=== PATIENT | female | born 1970 | race Caucasian/White ===

== ENCOUNTER → 2023-04-15 11:21 | Outpatient (REF) | payer BC, SELFPAY ==
[2023-04-15 13:10] LABS: Urine Albumin Trace (Neg - Trace); Urine Bilirubin Negative (Negative); Urine Character Slightly Cloudy (Clear); Urine Color Yellow; Urine Glucose Negative (Negative); Urine Ketone Negative (Negative); Urine Leukocyte 2+ (Negative); Urine Nitrite Positive (Negative); Urine Occult Blood Trace (Negative); Urine Specific Gravity 1.015 (<1.030); Urine Urobilinogen Negative (Neg - 1+)
[2023-04-15 13:42] LABS: Urine Urothelial Cell 0-2 /LPF (FEW)
[2023-04-15 13:43] LABS: Urine White Cell 70-80 /HPF (0-5)
[2023-04-15 13:44] LABS: Urine Bacteria Many (Negative)
== END ==
LOC: REG 11:21
PROVIDERS: ATTENDING PHYSICIAN Nurse Practitioner Adult Health
DX: R10.9 Unspecified abdominal pain (principal)
CPT/HCPCS: 81003; 81015; 87077; 87086; 87186

== ENCOUNTER → 2023-05-05 10:16 | Outpatient (REF) | payer BC, SELFPAY ==
[2023-05-05 11:38] LABS: Osmolality Urine 392 mOsm/kg (300-900)
[2023-05-05 11:48] LABS: Blood Urea Nitrogen 12 mg/dl (7-17); Calcium 9.6 mg/dl (8.4-10.2); Carbon Dioxide 26 mmol/L (22-30); Chloride 99 mmol/L (98-107); Glucose 123 mg/dl (70-99); Potassium 3.9 mmol/L (3.5-5.1); Sodium 136 mmol/L (135-145); eGFR 49.79
[2023-05-05 12:01] LABS: Urine Protein 23 mg/dl (0-12)
== END ==
LOC: REG 10:16
PROVIDERS: ATTENDING PHYSICIAN Specialist
DX: R10.9 Unspecified abdominal pain (principal); N18.31 Chronic kidney disease, stage 3a; I10 Essential (primary) hypertension; E87.1 Hypo-osmolality and hyponatremia; R31.29 Other microscopic hematuria
CPT/HCPCS: 36415; 80048; 82570; 83935; 83970; 84156

== ENCOUNTER → 2023-05-06 11:17 | Outpatient (REF) | payer BC, SELFPAY ==
[2023-05-06 12:01] LABS: Urine Albumin Trace (Neg - Trace); Urine Bilirubin Negative (Negative); Urine Character Slightly Cloudy (Clear); Urine Color Yellow; Urine Glucose Negative (Negative); Urine Ketone Negative (Negative); Urine Leukocyte 2+ (Negative); Urine Nitrite Positive (Negative); Urine Occult Blood 1+ (Negative); Urine Urobilinogen Negative (Neg - 1+); Urine pH 6.5 (5.0-9.0)
[2023-05-06 12:17] LABS: Urine Bacteria Many (Negative); Urine White Cell 40-50 /HPF (0-5)
== END ==
LOC: REG 11:17
PROVIDERS: ATTENDING PHYSICIAN Internal Medicine
DX: Z87.440 Personal history of urinary (tract) infections (principal)
CPT/HCPCS: 81003; 81015; 87077; 87086; 87186

== ENCOUNTER → 2023-05-18 16:18 | Outpatient (REF) | payer BC, SELFPAY | LOC: RAD 16:18 | PROVIDERS: ATTENDING PHYSICIAN Specialist; FAMILY PHYSICIAN Internal Medicine | DX: R10.9 Unspecified abdominal pain (principal) | CPT/HCPCS: 76770 ==

== ENCOUNTER → 2023-07-07 07:56 | Outpatient (REF) | payer BC, SELFPAY ==
[2023-07-07 08:30] LABS: % Basophils 0.7 % (0-2); % Immature Granulocytes 0.6 % (0-0.5); % Lymphocytes 12.3 % (20.5-51.1); % Monocytes 7.8 % (1.7-9.3); % Neutrophils 77.6 % (42.2-75.2); Absolute Basophils 0.1 10^3/uL (0-0.2); Absolute Eosinophils 0.1 10^3/uL (0-0.7); Absolute Immature Granulocytes 0.1 10^3/uL (0-0.05); Absolute Lymphocytes 1.5 10^3/uL (1.2-3.4); Absolute Monocytes 0.9 10^3/uL (0.1-0.6); Absolute Neutrophils 9.4 10^3/uL (1.4-6.5); Hematocrit 41.3 % (37.0-47.0); Hemoglobin 14.8 g/dL (12.0-16.0); Mean Corp Hgb Conc. 35.8 g/dL (33.0-37.0); Mean Corpuscular Hgb 36.1 pg (27.0-31.0); Mean Corpuscular Volume 100.7 fL (81.0-99.0); Mean Platelet Volume 11.6 fL (7.4-10.4); Nucleated Red Blood Cells % 0 %; Platelet Count 200 10^3/uL (130-400); Red Cell Dist. Width 12.3 % (11.5-14.5); White Blood Cell Count 12.1 10^3/uL (4.8-10.8)
[2023-07-07 08:44] LABS: Glycohemoglobin (HgbA1c) 4.7 % (4.0-5.6)
[2023-07-07 09:05] LABS: ALT (SGPT) 53 U/L (0-35); AST (SGOT) 60 U/L (14-36); Albumin 4.4 g/dl (3.5-5.0); Alkaline Phosphatase 106 U/L (38-126); Blood Urea Nitrogen 10 mg/dl (7-17); Calcium 10.3 mg/dl (8.4-10.2); Carbon Dioxide 25 mmol/L (22-30); Chloride 96 mmol/L (98-107); GGTP 290 U/L (12-43); Glucose 98 mg/dl (70-99); Magnesium 1.2 mg/dl (1.6-2.3); Potassium 4.1 mmol/L (3.5-5.1); Sodium 130 mmol/L (135-145); Total Bilirubin 1.7 mg/dl (0.2-1.3); Total Cholesterol 299 mg/dl (50-199); Total Protein 7.9 g/dl (6.3-8.2); Triglyceride 124 mg/dl (10-149); Very Low Density Lipoprotein 24 mg/dl (0-30); eGFR 45.55
[2023-07-07 09:16] LABS: HDL Cholesterol 143 mg/dl; LDL Cholesterol, Calculated 132 mg/dl
== END ==
LOC: REG 07:56
PROVIDERS: ATTENDING PHYSICIAN Nurse Practitioner Adult Health; FAMILY PHYSICIAN Internal Medicine
DX: R73.01 Impaired fasting glucose (principal); Z09 Encounter for follow-up examination after completed treatment for conditions other than malignant neoplasm; R78.81 Bacteremia; B96.20 Unspecified Escherichia coli [E. coli] as the cause of diseases classified elsewhere; N39.0 Urinary tract infection, site not specified; N17.9 Acute kidney failure, unspecified; N18.32 Chronic kidney disease, stage 3b; R74.8 Abnormal levels of other serum enzymes; E83.42 Hypomagnesemia
CPT/HCPCS: 36415; 80053; 80061; 82977; 83036; 83735; 85025

== ENCOUNTER → 2023-07-30 10:09 | Outpatient (REF) | payer BC, SELFPAY ==
[2023-07-30 10:47] LABS: Urine Albumin Trace (Neg - Trace); Urine Bilirubin Negative (Negative); Urine Character Very Cloudy (Clear); Urine Color Yellow; Urine Glucose Negative (Negative); Urine Ketone Negative (Negative); Urine Leukocyte 2+ (Negative); Urine Nitrite Positive (Negative); Urine Occult Blood Trace (Negative); Urine Specific Gravity 1.015 (<1.030); Urine Urobilinogen Negative (Neg - 1+)
[2023-07-30 10:56] LABS: % Basophils 2.3 % (0-2); % Eosinophils 4.7 % (0-6); % Immature Granulocytes 0.2 % (0-0.5); % Lymphocytes 39.2 % (20.5-51.1); % Monocytes 11.8 % (1.7-9.3); % Neutrophils 41.8 % (42.2-75.2); Absolute Basophils 0.1 10^3/uL (0-0.2); Absolute Eosinophils 0.2 10^3/uL (0-0.7); Absolute Lymphocytes 1.9 10^3/uL (1.2-3.4); Absolute Monocytes 0.6 10^3/uL (0.1-0.6); Hemoglobin 14.6 g/dL (12.0-16.0); Mean Corpuscular Hgb 35.7 pg (27.0-31.0); Mean Corpuscular Volume 105.1 fL (81.0-99.0); Mean Platelet Volume 11.2 fL (7.4-10.4); Nucleated Red Blood Cells % 0 %; Platelet Count 236 10^3/uL (130-400); Red Blood Cell Count 4.09 10^6/uL (4.20-5.40); Red Cell Dist. Width 11.8 % (11.5-14.5); White Blood Cell Count 4.9 10^3/uL (4.8-10.8)
[2023-07-30 11:56] LABS: ALT (SGPT) 123 U/L (0-35); AST (SGOT) 186 U/L (14-36); Albumin 4.1 g/dl (3.5-5.0); Alkaline Phosphatase 144 U/L (38-126); Blood Urea Nitrogen 7 mg/dl (7-17); Calcium 9.8 mg/dl (8.4-10.2); Carbon Dioxide 26 mmol/L (22-30); Chloride 105 mmol/L (98-107); Glucose 100 mg/dl (70-99); Magnesium 1.5 mg/dl (1.6-2.3); Potassium 4.1 mmol/L (3.5-5.1); Sodium 143 mmol/L (135-145); Total Bilirubin 0.7 mg/dl (0.2-1.3); Total Protein 7.7 g/dl (6.3-8.2); eGFR > 60.00
[2023-07-30 11:58] LABS: Urine Amorphous Seen; Urine Mucus Few; Urine Squamous Cell 26-30 /LPF (Few)
[2023-07-30 12:00] LABS: Urine Bacteria Many (Negative); Urine Red Blood Cell 0-2 /HPF (0-2); Urine White Cell 90-100 /HPF (0-5)
== END ==
LOC: REG 10:09
PROVIDERS: ATTENDING PHYSICIAN Nurse Practitioner Adult Health
DX: D72.829 Elevated white blood cell count, unspecified (principal); E87.1 Hypo-osmolality and hyponatremia; E83.42 Hypomagnesemia
CPT/HCPCS: 36415; 80053; 81003; 81015; 83735; 85025; 87077; 87086; 87186

== ENCOUNTER → 2023-12-04 07:52 | Outpatient (REF) | payer BC, SELFPAY ==
[2023-12-04 09:17] LABS: ALT (SGPT) 65 U/L (0-35); AST (SGOT) 107 U/L (14-36); Albumin 4.6 g/dl (3.5-5.0); Alkaline Phosphatase 111 U/L (38-126); Alkaline Phosphatase, Total 111 U/L (38-126); Blood Urea Nitrogen 13 mg/dl (7-17); Calcium 9.5 mg/dl (8.4-10.2); Carbon Dioxide 25 mmol/L (22-30); Chloride 92 mmol/L (98-107); Glucose 75 mg/dl (70-99); Magnesium 1.5 mg/dl (1.6-2.3); Potassium 3.2 mmol/L (3.5-5.1); Sodium 137 mmol/L (135-145); Total Bilirubin 2.7 mg/dl (0.2-1.3); eGFR > 60.00
[2023-12-04 09:48] LABS: Hepatitis B Surface Antigen Negative (Negative)
[2023-12-04 10:02] LABS: Hepatitis B Core Ab, IgM Negative (Negative)
[2023-12-04 10:05] LABS: Hepatitis B Core Ab, Total Negative (Negative); Hepatitis C Antibody Negative (Negative)
[2023-12-04 14:17] LABS: Hepatitis A Antibody, Total Positive (Negative)
[2023-12-04 14:49] LABS: Alk Phos After Heat 105; Alkaline Phosphatase Percent 94.59
== END ==
LOC: REG 07:52
PROVIDERS: ATTENDING PHYSICIAN Nurse Practitioner Adult Health
DX: R74.01 Elevation of levels of liver transaminase levels (principal); R74.8 Abnormal levels of other serum enzymes; E83.42 Hypomagnesemia
CPT/HCPCS: 36415; 80053; 83735; 84078; 86704; 86705; 86708; 86803; 87340

== ENCOUNTER → 2023-12-05 13:42 | Outpatient (REF) | payer BC, SELFPAY | LOC: WDC 13:42 | PROVIDERS: ATTENDING PHYSICIAN Nurse Practitioner Adult Health | DX: Z12.31 Encounter for screening mammogram for malignant neoplasm of breast (principal) | CPT/HCPCS: 77063; 77067 ==

== ENCOUNTER 2024-02-03 18:30 | Inpatient (IN) | payer BC, SELFPAY ==
[2024-02-03] VITALS (11 sets, daily range): BP systolic 93–126; BP diastolic 59–92; BMI 29.6; BMI 25.4
--- NOTE | 2024-02-03 10:44 | ED.GENMED ---
ED Provider Triage
<Tae Forte PA-C - Last Filed: 02/03/24 10:53>
-
Patient seen by provider in Triage?: Seen in Triage
53-year-old female presents via EMS from home with complaints of bilateral lower back pain and fatigue as well as paresthesias to the arms and legs. She notes urinary symptoms and also notes history of sepsis secondary to kidney infection. Her
symptoms reminder of when she had sepsis.
Vital signs stable. Looks nontoxic at triage but will start with labs and urinalysis
Patient had medical screening performed at triage but warrants further evaluation
Update: Patient vomiting at triage. 4 milligrams ODT Zofran ordered
History of Present Illness
<Tae Forte PA-C - Last Filed: 02/03/24 10:53>
General
Chief Complaint: Numbness
Time Seen by Provider: 02/03/24 13:42
<Adolfo Crews DO - Last Filed: 02/03/24 20:45>
General
Source: patient
History of Present Illness
History of Present Illness:
53-year-old female brought to the emergency room for evaluation of paresthesias bilateral lower extremities associated with difficulty walking. Symptoms began about a week ago affecting the lower leg bilaterally. Symptoms have progressed up the
leg. Also has some paresthesias in her hands. In addition patient is complaining of some left flank pain. She has had a history of serious kidney infections in the past and was concerned she might be developing another. Patient endorses alcohol
use. She states she was drinking 2 drinks a day but stopped about a week ago. No incontinence.
Past History
<Tae Forte PA-C - Last Filed: 02/03/24 10:53>
Past History
ED Past Medical History: Negative CAD, IDDM or NIDDM
Social History
Tobacco: Non-smoker
Alcohol: Occasional
Drug: None
Personal:
Living: with family
Employment: Employed
Family History
Family History: Other (No urologic issues)
Phy Exam
<Adolfo Crews DO - Last Filed: 02/03/24 20:45>
Physical Exam
Physical Exam:
General: Awake, Alert, Oriented X3. No acute distress.
Vitals: unremarkable
Head: Atraumatic
Eyes: Pupils equal, EOMI
Throat: Airway intact, no exudates, mildly dry mucosa
Neck: Trachea midline
Lungs: Clear and equal b/l
Heart: Regular rate, no murmurs
Abd: Soft, suprapubic discomfort and fullness, No pulsatile mass
Back: Left CVA tenderness to percussion
Neuro: Nonfocal
Skin: Warm, dry, no rash
Extremities: pulses equal b/l, no edema
Course
<Tae Forte PA-C - Last Filed: 02/03/24 10:53>
Orders/Labs/Results
Orders:
Orders
02/03/24 10:52
Ondansetron Orally Disint [Zofran Odt (Orally Disintegrating)] 4 mg PO NOW STA
02/03/24 10:55
Ondansetron Orally Disint [Zofran Odt (Orally Disintegrating)] 4 mg .ROUTE .STK-MED ONE
02/03/24 10:57
Complete Blood Count/With Diff Urgent
Comprehensive Metabolic Panel Urgent
02/03/24 14:07
CT Abd/pel Without Iv Or Oral Urgent
Comment:
Reason For Exam: left flank pain
Lactated Ringers [Lr] 500 ml IV BOLUS
02/03/24 14:31
Thiamine Injection 200 mg IV NOW STA
02/03/24 14:34
Urinalysis Reflex To Culture Urgent
Date Specimen was Collected: 02/03/24
Time Specimen was Collected: 14:04
Urine Microscopic Reflex Cult Urgent
Urine Culture Urgent
LISA Source: U
Specimen Description:
Date Specimen was Collected: 02/03/24
Time Specimen was Collected: 14:04
02/03/24 Dinner
Regular
At Your Request: Full Participation
Does patient need a safe tray?: No
02/03/24 16:13
CefTRIAXone [Rocephin] 1,000 mg IV NOW STA
02/03/24 16:20
CSF Cell Count Urgent
Date Specimen was Collected: 02/03/24
Time Specimen was Collected: 16:15
CSF Tube Number: 4
Comment: Tube #4
Lactate Level [Lactic Acid] Urgent
Lyme PCR, DNA [S] Urgent
Spinal Fluid Glucose Urgent
Date Specimen was Collected: 02/03/24
Time Specimen was Collected: 16:16
Spinal Fluid Protein Urgent
Date Specimen was Collected: 02/03/24
Time Specimen was Collected: 16:16
CSF Culture with Gram Stain Urgent
LISA Source: Csf
Specimen Description:
Date Specimen was Collected: 02/03/24
Time Specimen was Collected: 16:15
02/03/24 16:51
Code Status As Directed
Resuscitation Status: Full Code
Docusate W/Senna [Senokot-S] 1 tablet PO BIDPRN PRN
Polyethylene Glycol Powder [Miralax] 17 grams PO DAILYPRN PRN
02/03/24 16:52
Activity As Directed
Activity Level: As Tolerated
Vital Signs As Directed
Frequency: Per unit guidelines
02/03/24 16:53
DX Deep Vein Thrombosis Video Routine
02/03/24 18:00
Enoxaparin Sodium [Lovenox] 40 mg SC QPM
02/03/24 18:13
Admit/Transfer Patient As Directed
Co-Sign Provider:
Level of Care: Inpatient admission
Assign to:: Medical/Surgical
Physician / Group: Dr. Keshawn Trujillo
Diagnosis: Ascending lower extremity weakness
Reason for Hospitalization: Ascending lower extremity weakness
Expected length of stay greater than two midnights?: Yes
ELOS- Estimated Length of Stay in days: 3
I certify the patient meets the requirements for IP care: Yes
02/03/24 18:18
PRN Pain Medication Management As Directed
May give lesser potent ordered pain med per pt: Yes
preference::
Protocol:: Medication orders for pain may be administered in a
manner that supports deferring to patient preference
when the pt is:
- Requesting an ordered lesser potent pain medication.
Least to most potent pain medications are defined
as: acetaminophen < NSAID < tramadol < opioids
(morphine, oxycodone, hydromorphone).
- Requesting a lesser dose of the same medication IF
ORDERED.
- Requesting a less intrusive route of administration
if both routes are prescribed by the provider (PO <
IV).
02/03/24 18:22
Abdominal Ltd US [US Abdomen Limited] Routine
Comment: Liver, gallbladder
Reason For Exam: Right upper quadrant tenderness, increased AST ALT
02/03/24 19:56
Famotidine [Pepcid] 20 mg PO DAILYPRN PRN
02/03/24 20:00
Acetaminophen [Tylenol] 650 mg PO Q4HWA
Gabapentin [Neurontin] 200 mg PO TID
02/04/24 06:00
Complete Blood Count/With Diff IN AM
Comprehensive Metabolic Panel IN AM
Folate IN AM
Lipid Profile [Cardiovascular Evaluation] IN AM
Magnesium IN AM
PTT IN AM
Prothrombin Time IN AM
Serum Osmolality IN AM
TSH IN AM
Thyroid profile [TSH Reflex To Free T4] IN AM
Urine Osmolality Random [Osmolality, Random Urine] IN AM
Urine Sodium IN AM
Vitamin B12 IN AM
02/04/24 08:00
Amlodipine [Norvasc] 10 mg PO DAILY
Ascorbic Acid [Vitamin C] 250 mg PO DAILY
Cyanocobalamin [Vitamin B-12] 1,000 mcg PO DAILY
Magnesium l-Lactate [Mag-Tab Sr] 84 mg PO DAILY
Propranolol [Inderal] 20 mg PO DAILY
Abnormal Lab Results
02/03/24 02/03/24 02/03/24
10:57 14:34 16:20
WBC 18.8 H 10^3/uL
(4.8-10.8)
RBC 3.72 L 10^6/uL
(4.20-5.40)
MCV 102.4 H fL
(81.0-99.0)
MCH 36.8 H pg
(27.0-31.0)
Plt Count 447 H 10^3/uL
(130-400)
MPV 10.8 H fL
(7.4-10.4)
Abs Immat Gran (auto) 0.1 H 10^3/uL
(0-0.05)
Absolute Neuts (auto) 15.8 H 10^3/uL
(1.4-6.5)
Absolute Monos (auto) 1.5 H 10^3/uL
(0.1-0.6)
Immature Gran % 0.6 H %
(0-0.5)
Neutrophils % 84.1 H %
(42.2-75.2)
Lymphocytes % 7.0 L %
(20.5-51.1)
Sodium 132 L mmol/L
(135-145)
Chloride 91 L mmol/L
(98-107)
Carbon Dioxide 21 L mmol/L
(22-30)
Creatinine 1.1 H mg/dL
(0.6-1.0)
Glucose 140 H mg/dl
(70-99)
Lactic Acid 2.1 H mmol/L
(0.7-2.0)
Calcium 10.4 H mg/dl
(8.4-10.2)
Total Bilirubin 1.6 H mg/dl
(0.2-1.3)
AST 95 H U/L
(14-36)
ALT 52 H U/L
(0-35)
Urine Ketones 2+ A
(Negative)
Urine Nitrite (Reflex) Positive A
(Negative)
Urine Bilirubin 1+ A
(Negative)
Leukocyte Esterase Rfl 2+ A
(Negative)
Urine WBC (Reflex) 50-60 A /HPF
(0-5)
Urine Bacteria (Reflex) Many A
(Negative)
CSF Glucose 80 H mg/dl
(40-70)
CSF Total Protein 72 H mg/dl
(12-60)
02/03/24 10:57
02/03/24 10:57
Vital Signs
Initial and Last Documented VS:
Initial Vital Signs
Temp Pulse Resp BP Pulse Ox
98.5 F 96 20 93/59 100
02/03/24 10:42 02/03/24 10:42 02/03/24 10:42 02/03/24 10:42 02/03/24 10:42
Last Documented Vital Signs
Temp Pulse Resp BP Pulse Ox
99.2 F 106 18 124/81 95
02/03/24 20:08 02/03/24 20:08 02/03/24 20:08 02/03/24 20:08 02/03/24 20:08
Brendonlt;Adolfo Crews, DO - Last Filed: 02/03/24 20:45>
Orders/Labs/Results
Orders:
Orders
02/03/24 10:52
Ondansetron Orally Disint [Zofran Odt (Orally Disintegrating)] 4 mg PO NOW STA
02/03/24 10:55
Ondansetron Orally Disint [Zofran Odt (Orally Disintegrating)] 4 mg .ROUTE .STK-MED ONE
02/03/24 10:57
Complete Blood Count/With Diff Urgent
Comprehensive Metabolic Panel Urgent
02/03/24 14:07
CT Abd/pel Without Iv Or Oral Urgent
Comment:
Reason For Exam: left flank pain
Lactated Ringers [Lr] 500 ml IV BOLUS
02/03/24 14:31
Thiamine Injection 200 mg IV NOW STA
02/03/24 14:34
Urinalysis Reflex To Culture Urgent
Date Specimen was Collected: 02/03/24
Time Specimen was Collected: 14:04
Urine Microscopic Reflex Cult Urgent
Urine Culture Urgent
LISA Source: U
Specimen Description:
Date Specimen was Collected: 02/03/24
Time Specimen was Collected: 14:04
02/03/24 Dinner
Regular
At Your Request: Full Participation
Does patient need a safe tray?: No
02/03/24 16:13
CefTRIAXone [Rocephin] 1,000 mg IV NOW STA
02/03/24 16:20
CSF Cell Count Urgent
Date Specimen was Collected: 02/03/24
Time Specimen was Collected: 16:15
CSF Tube Number: 4
Comment: Tube #4
Lactate Level [Lactic Acid] Urgent
Lyme PCR, DNA [S] Urgent
Spinal Fluid Glucose Urgent
Date Specimen was Collected: 02/03/24
Time Specimen was Collected: 16:16
Spinal Fluid Protein Urgent
Date Specimen was Collected: 02/03/24
Time Specimen was Collected: 16:16
CSF Culture with Gram Stain Urgent
LISA Source: Csf
Specimen Description:
Date Specimen was Collected: 02/03/24
Time Specimen was Collected: 16:15
02/03/24 16:51
Code Status As Directed
Resuscitation Status: Full Code
Docusate W/Senna [Senokot-S] 1 tablet PO BIDPRN PRN
Polyethylene Glycol Powder [Miralax] 17 grams PO DAILYPRN PRN
02/03/24 16:52
Activity As Directed
Activity Level: As Tolerated
Vital Signs As Directed
Frequency: Per unit guidelines
02/03/24 16:53
DX Deep Vein Thrombosis Video Routine
02/03/24 18:00
Enoxaparin Sodium [Lovenox] 40 mg SC QPM
02/03/24 18:13
Admit/Transfer Patient As Directed
Co-Sign Provider:
Level of Care: Inpatient admission
Assign to:: Medical/Surgical
Physician / Group: Dr. Keshawn Trujillo
Diagnosis: Ascending lower extremity weakness
Reason for Hospitalization: Ascending lower extremity weakness
Expected length of stay greater than two midnights?: Yes
ELOS- Estimated Length of Stay in days: 3
I certify the patient meets the requirements for IP care: Yes
02/03/24 18:18
PRN Pain Medication Management As Directed
May give lesser potent ordered pain med per pt: Yes
preference::
Protocol:: Medication orders for pain may be administered in a
manner that supports deferring to patient preference
when the pt is:
- Requesting an ordered lesser potent pain medication.
Least to most potent pain medications are defined
as: acetaminophen < NSAID < tramadol < opioids
(morphine, oxycodone, hydromorphone).
- Requesting a lesser dose of the same medication IF
ORDERED.
- Requesting a less intrusive route of administration
if both routes are prescribed by the provider (PO <
IV).
02/03/24 18:22
Abdominal Ltd US [US Abdomen Limited] Routine
Comment: Liver, gallbladder
Reason For Exam: Right upper quadrant tenderness, increased AST ALT
02/03/24 19:56
Famotidine [Pepcid] 20 mg PO DAILYPRN PRN
02/03/24 20:00
Acetaminophen [Tylenol] 650 mg PO Q4HWA
Gabapentin [Neurontin] 200 mg PO TID
02/04/24 06:00
Complete Blood Count/With Diff IN AM
Comprehensive Metabolic Panel IN AM
Folate IN AM
Lipid Profile [Cardiovascular Evaluation] IN AM
Magnesium IN AM
PTT IN AM
Prothrombin Time IN AM
Serum Osmolality IN AM
TSH IN AM
Thyroid profile [TSH Reflex To Free T4] IN AM
Urine Osmolality Random [Osmolality, Random Urine] IN AM
Urine Sodium IN AM
Vitamin B12 IN AM
02/04/24 08:00
Amlodipine [Norvasc] 10 mg PO DAILY
Ascorbic Acid [Vitamin C] 250 mg PO DAILY
Cyanocobalamin [Vitamin B-12] 1,000 mcg PO DAILY
Magnesium l-Lactate [Mag-Tab Sr] 84 mg PO DAILY
Propranolol [Inderal] 20 mg PO DAILY
Abnormal Lab Results
02/03/24 02/03/24 02/03/24
10:57 14:34 16:20
WBC 18.8 H 10^3/uL
(4.8-10.8)
RBC 3.72 L 10^6/uL
(4.20-5.40)
MCV 102.4 H fL
(81.0-99.0)
MCH 36.8 H pg
(27.0-31.0)
Plt Count 447 H 10^3/uL
(130-400)
MPV 10.8 H fL
(7.4-10.4)
Abs Immat Gran (auto) 0.1 H 10^3/uL
(0-0.05)
Absolute Neuts (auto) 15.8 H 10^3/uL
(1.4-6.5)
Absolute Monos (auto) 1.5 H 10^3/uL
(0.1-0.6)
Immature Gran % 0.6 H %
(0-0.5)
Neutrophils % 84.1 H %
(42.2-75.2)
Lymphocytes % 7.0 L %
(20.5-51.1)
Sodium 132 L mmol/L
(135-145)
Chloride 91 L mmol/L
(98-107)
Carbon Dioxide 21 L mmol/L
(22-30)
Creatinine 1.1 H mg/dL
(0.6-1.0)
Glucose 140 H mg/dl
(70-99)
Lactic Acid 2.1 H mmol/L
(0.7-2.0)
Calcium 10.4 H mg/dl
(8.4-10.2)
Total Bilirubin 1.6 H mg/dl
(0.2-1.3)
AST 95 H U/L
(14-36)
ALT 52 H U/L
(0-35)
Urine Ketones 2+ A
(Negative)
Urine Nitrite (Reflex) Positive A
(Negative)
Urine Bilirubin 1+ A
(Negative)
Leukocyte Esterase Rfl 2+ A
(Negative)
Urine WBC (Reflex) 50-60 A /HPF
(0-5)
Urine Bacteria (Reflex) Many A
(Negative)
CSF Glucose 80 H mg/dl
(40-70)
CSF Total Protein 72 H mg/dl
(12-60)
02/03/24 10:57
02/03/24 10:57
Vital Signs
Initial and Last Documented VS:
Initial Vital Signs
Temp Pulse Resp BP Pulse Ox
98.5 F 96 20 93/59 100
02/03/24 10:42 02/03/24 10:42 02/03/24 10:42 02/03/24 10:42 02/03/24 10:42
Last Documented Vital Signs
Temp Pulse Resp BP Pulse Ox
99.2 F 106 18 124/81 95
02/03/24 20:08 02/03/24 20:08 02/03/24 20:08 02/03/24 20:08 02/03/24 20:08
Procedures
<Adolfo Crews DO - Last Filed: 02/03/24 20:45>
Lumbar Puncture
Indication for procedure:: evaluate for GBS
Procedure completed by: Myself
Consent form signed: Yes
Anesthesia/sedation: 1% Lidocaine
Preparation: cleaned with Betadine
Position: decubitis
Needle Size: 22 gauge
Needle Type: Sprotte Lumbar
Number of attempts: 2
Dressing applied to puncture site: bandaid
Complications: none
<Adolfo Crews DO - Last Filed: 02/03/24 20:45>
MDM/Problems Addressed
Differential Diagnosis Includes:
Kidney stone, pyelonephritis, infected kidney stone, electrolyte abnormality, vitamin deficiency such as thiamine, Guillain-Abdalla� syndrome
MDM/Problems Addressed:
Patient presents with left flank pain, nausea, decreased appetite. Also complaining of paresthesias in lower extremity weakness as well as paresthesias in her arm. These seem to be ascending from legs to upper extremities. From a left flank pain
standpoint the patient does have a elevated white blood cell count at 18.8. Urinalysis is consistent with urinary tract infection with 50-60 WBCs per high-power field. There is also many bacteria and chemistry analysis of the urine is positive for
leukocyte esterase as well as nitrates. CT without contrast obtained and there is no obstructing stone. From a paresthesia standpoint the patient's electrolytes are relatively normal. She seems to have it out gall abuse history and therefore
thiamine was provided. She did have vaccines administered maybe up to 2 months ago. I was unable to provoke reflexes in the lower extremities. My concern is she could have Guillain-Abdalla� syndrome. Lumbar puncture obtained. She does have
elevated protein at 72. There are 134 red blood cells per high-power field with only 1 WBC. Infection seems quite unlikely. Patient will be mated to the hospital service for IV antibiotics and further workup
<Adolfo Crews DO - Last Filed: 02/03/24 20:45>
*Radiology
Radiology exam reviewed: radiology read reviewed
*Pulse Oximetry
Patient hypoxic: no
*Critical Care Note
Total Time (30-74mins, 75-104mins- exclusive of procedures): Not Applicable
ED Attending Note
<Tae Forte PA-C - Last Filed: 02/03/24 10:53>
-
Portions of this chart may have been created with voice recognition software.� Occasional wrong word or��sound alike� substitutions may have occurred due to the inherent limitations of voice recognition software.
Discharge Plan
Departure
Patient Disposition: Admit
Date of Disposition: 02/03/24
Time of Disposition: 16:19
Admit to: IMU
Presentation/result/management discussed w/ accepting MD/DO: Hospitalist
Condition: Fair
Discharge Problem:
Pyelonephritis, Paresthesia of bilateral legs, Bilateral leg weakness
Interventions
Interventions:
*Risk Screen - Suicide Last Done: 02/03/24 10:42
*General Assessment Last Done: 02/03/24 10:42
*Neglect/Abuse Screening Last Done: 02/03/24 10:42
ED- Fall Risk Assessment Last Done: 02/03/24 12:21
*ED COVID-19 Vaccine History Last Done: 02/03/24 12:21
*Nursing Disposition Last Done: 02/03/24 19:55
ED- Neurological Assessment Last Done: 02/03/24 12:21
Discharge Date and Time
Discharge Date/Time: 02/03/24 20:03
[2024-02-03] MEDS: ZOFRAN ODT (ORALLY DISINTEGRATING) 4 MG PO (10:56)
[2024-02-03 11:14] LABS: % Basophils 0.5 % (0-2); % Immature Granulocytes 0.6 % (0-0.5); % Monocytes 7.8 % (1.7-9.3); % Neutrophils 84.1 % (42.2-75.2); Absolute Basophils 0.1 10^3/uL (0-0.2); Absolute Immature Granulocytes 0.1 10^3/uL (0-0.05); Absolute Lymphocytes 1.3 10^3/uL (1.2-3.4); Absolute Monocytes 1.5 10^3/uL (0.1-0.6); Absolute Neutrophils 15.8 10^3/uL (1.4-6.5); Hematocrit 38.1 % (37.0-47.0); Hemoglobin 13.7 g/dL (12.0-16.0); Mean Corpuscular Hgb 36.8 pg (27.0-31.0); Mean Corpuscular Volume 102.4 fL (81.0-99.0); Mean Platelet Volume 10.8 fL (7.4-10.4); Nucleated Red Blood Cells % 0 %; Platelet Count 447 10^3/uL (130-400); Red Blood Cell Count 3.72 10^6/uL (4.20-5.40); Red Cell Dist. Width 12.6 % (11.5-14.5); White Blood Cell Count 18.8 10^3/uL (4.8-10.8)
[2024-02-03 11:36] LABS: ALT (SGPT) 52 U/L (0-35); AST (SGOT) 95 U/L (14-36); Albumin 4.4 g/dl (3.5-5.0); Alkaline Phosphatase 124 U/L (38-126); Blood Urea Nitrogen 12 mg/dl (7-17); Calcium 10.4 mg/dl (8.4-10.2); Carbon Dioxide 21 mmol/L (22-30); Chloride 91 mmol/L (98-107); Glucose 140 mg/dl (70-99); Potassium 4.4 mmol/L (3.5-5.1); Sodium 132 mmol/L (135-145); Total Bilirubin 1.6 mg/dl (0.2-1.3); Total Protein 7.6 g/dl (6.3-8.2); eGFR > 60.00
[2024-02-03] MEDS: LR 500 IV (14:37)
[2024-02-03] MEDS: THIAMINE INJECTION 200 MG IV (14:38)
[2024-02-03 14:45] LABS: Urine Albumin Trace (Neg - Trace); Urine Bilirubin 1+ (Negative); Urine Character Clear (Clear); Urine Color Yellow; Urine Glucose Negative (Negative); Urine Ketone 2+ (Negative); Urine Leukocyte 2+ (Negative); Urine Nitrite Positive (Negative); Urine Occult Blood Negative (Negative); Urine Specific Gravity 1.025 (<1.030); Urine Urobilinogen 1+ (Neg - 1+)
[2024-02-03 15:09] LABS: Urine Amorphous Seen; Urine Squamous Cell >30 /LPF (Few)
[2024-02-03 15:11] LABS: Urine Bacteria Many (Negative); Urine Red Blood Cell 0-2 /HPF (0-2); Urine White Cell 50-60 /HPF (0-5)
[2024-02-03] MEDS: ROCEPHIN 1000 MG IV (16:34)
[2024-02-03 17:15] LABS: CSF Clarity Clear; CSF Color Colorless; CSF Tube # 4; Red Cell Count/CSF 134 mm^3; White Cell Count/CSF 1 mm^3 (0-5)
[2024-02-03 17:26] LABS: Spinal Fluid Glucose 80 mg/dl (40-70); Spinal Fluid Protein 72 mg/dl (12-60)
[2024-02-03 17:37] LABS: Lactic Acid 2.1 mmol/L (0.7-2.0)
--- NOTE | 2024-02-03 18:30 | HPS.HSE ---
Addendum entered and electronically signed by Keshawn Trujillo MD 02/04/24 14:10:
ascedning parasthetsias after vaccine admin at the begining of November
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
-s/p LP in the ED
-sensation and proprioceptin intact, muscle b/l equal 4/5
-check b12/folate
-may need emg
-unlikely cva therefore, will hold off on BMrain/C-spineMRI
-neuro consult
UA dirty, >30 epis
-unl;ikely cystitis on pyelo josué as no evidence of perinephric stranding on ct
macrocytosis
-likely related to alochol use
-chekc b12/folate
transaminitis
-likley related to fatty liver
-check ruqus
Original Note:
Family Physician
-
Family Physician: Trever Rosas
Chief Complaint
-
Ascending lower bilateral extremity weakness
History of Present Illness
53-year-old female, PCP Dr. Alas, full code presents via the ambulance with lower bilateral flank pain for the past couple of days, moderate in intensity rated as a 7 on the left and a 5 on the right, nonradiating. She has had a previous clinical
presentation and was diagnosed with a UTI given antibiotics and discharged. She has had approximately 5 episodes of UTI this year.
She is also complaining of bilateral numbness, weakness, paresthesia of the lower extremities which is ascending, and now she can feel this sensation both of her arms.
Medical History
Past Medical History
Past Medical History: Reports GERD, HTN, Renal Failure, Psychiatric (Depression) and Other (UTI)
Past Surgical History: Reports None
Social History
Tobacco: Non-smoker
Alcohol: Former (Drink 3 drinks a day for the past 10 years, recently quit 1 month ago)
Drug: None
Personal: Single
Living: Alone
Family History
Family History: Not pertinent
Allergies / Home Medications
Allergies reflects when Allergies were last updated in [facility].
Home Medications with original date entered in [facility]
Allergy/Medication List:
Allergies
Allergy/AdvReac Type Severity Reaction Status Date / Time
adhesive Allergy Rash Verified 02/03/24 10:47
Home Medications
famotidine 20 mg tablet (Zantac-360 (famotidine)) 20 mg PO DAILYPRN PRN heartburn 12/15/22
propranolol 20 mg tablet 20 mg PO DAILY 12/15/22
acetaminophen 325 mg tablet (Tylenol) 650 mg PO Q6HPRN PRN mild pain 02/03/24
amlodipine 10 mg tablet 10 mg PO DAILY 02/03/24
ascorbic acid (vitamin C) 250 mg tablet (Vitamin C) 250 mg PO DAILY 02/03/24
cyanocobalamin (vitamin B-12) 1,000 mcg tablet 1,000 mcg PO DAILY 02/03/24
magnesium oxide 400 mg PO DAILY 02/03/24
potassium 99 mg tablet 99 mg PO DAILY 02/03/24
Review of Systems
-
History Source: Patient
Constitutional: Denies Weight Gain or Night Sweats
EENT: Denies Sore Throat
Respiratory: Denies Cough or Trouble Breathing
Cardiac: Denies Chest Pain, Diaphoresis, Palpitations or Syncope
Abdomen/GI: Reports Abdominal Pain; Denies Vomiting, Diarrhea, Constipated or Bloody Stools
: Reports Flank Pain and Dark Urine; Denies Dysuria, Frequency, Incontinence or Difficulty Voiding
Musculoskeletal: Denies Joint Pain
Neurological: Reports Weakness (Bilateral lower extremities, and upper bilateral extremities) and Numbness (Bilateral lower extremities, and upper bilateral extremities)
Physical Exam
Vital Signs
Vital Signs
Temp Pulse Resp BP Pulse Ox
97.6 F 91 19 108/92 100
02/03/24 12:21 02/03/24 15:30 02/03/24 15:30 02/03/24 15:00 02/03/24 15:30
Physical Exam
Respiratory: Clear
Cardiac: S1/S2, Regular Rhythm and Tachycardia
GI: Soft, Non Distended, Normal Bowel Sounds and Tender (Right upper quadrant)
Genito-urinary: No costovertebral tender
Musculoskeletal: No Clubbing, No Cyanosis and No Edema
Skin: Warm and Dry
Neuro: Awake, Alert, Oriented, AO x 3 and DTR's Intact & Symmetrical (Decreased bilaterally ankle and knee)
Laboratory Results
-
02/03/24 10:57
02/03/24 10:57
Laboratory Results
Lactic Acid 2.1 mmol/L (0.7-2.0) H 02/03/24 16:20
Total Bilirubin 1.6 mg/dl (0.2-1.3) H 02/03/24 10:57
AST 95 U/L (14-36) H 02/03/24 10:57
ALT 52 U/L (0-35) H 02/03/24 10:57
Alkaline Phosphatase 124 U/L (38-126) 02/03/24 10:57
Data Reviewed
-
Medical Tests (Nuc Med, Echo, EKG etc): Image Personally Visualized and interpreted and Discussed with Physician
Lab Data: Labs Reviewed by me and Discussed with Physician
Impression/Plan
-
Bilateral ascending lower extremity weakness/ neuropathy involving the upper extremities as well
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
-Patient has had 3 alcoholic drinks a day for the past 10 years
-Ordered B12 and folate, MCV 102
-Ordered lipid profile
-Ordered gabapentin 200 Mg 3 times daily for neuropathy
-Ordered right upper quadrant ultrasound to check for hepatic steatosis
-Lumbar puncture analysis shows increased protein, increased glucose, normal RBC, clear and colorless
-Lumbar puncture culture pending
-Neuro consulted, ordered EMG, esr, crp, lymes , and MRI of the lumbar spine
Urinary tract infection?:
-Increasing WBC, no costovertebral angle tenderness, afebrile, no dysuria or incontinence
-Initial urine analysis is not clean due to having squamous epithelial cells more than 30
-Repeat urinalysis and culture
Macrocytic Anemia:
- hb is 13.7, mcv 102
- ordered folate, b12
- Likely due to alcohol abuse
Lactic acidosis:
- level is 2.1
- Blood cultures ordered
Leukocytosis:
-WBC count is 18
-Trend, most likely reactive
Mild hypercalcemia:
-Corrected level is 10.9
- in case calcium level increases Order free ionized calcium, parathyroid hormone
Elevated liver enzymes:
-AST 95 ALT 52 with right upper quadrant tenderness
-Right upper quadrant abdominal ultrasound ordered
Acute hyponatremia:
-Sodium of 132 at admit
-Order urine osmolality, serum osmolality, urine sodium
Hypertension:
- Continue Amlodipine
Depression:
- Continue Escitalopram
Hyperglycemia:
- serum glucose is 140
- ordered a HbA1c
[2024-02-03] MEDS: LOVENOX 40 MG SC (18:55)
--- NOTE | 2024-02-03 20:08 | PTCARENOTE ---
Pt arrived from ED via stretcher and was pulled over to bed. Pt is AAOx3, VSS, and complains of 6/10 B/L lower leg pain. RN administered Tylenol. Pt is oriented to unit, resting comfortably with call payan within reach.
[2024-02-03] MEDS: TYLENOL 650 MG PO (20:56)
[2024-02-03] MEDS: NEURONTIN 200 MG PO (20:56)
[2024-02-04] VITALS (9 sets, daily range): BP systolic 112–134; BP diastolic 74–94; BMI 25.4
[2024-02-04] MEDS: TYLENOL PO (02:50)
[2024-02-04] MEDS: TYLENOL 650 MG PO ×5 (03:00→21:13)
[2024-02-04 06:36] LABS: Urine Albumin Negative (Neg - Trace); Urine Bilirubin Negative (Negative); Urine Character Clear (Clear); Urine Color Yellow; Urine Glucose Negative (Negative); Urine Ketone Trace (Negative); Urine Leukocyte 2+ (Negative); Urine Nitrite Negative (Negative); Urine Occult Blood Negative (Negative); Urine Specific Gravity 1.005 (<1.030); Urine Urobilinogen Negative (Neg - 1+); Urine pH 6.5 (5.0-9.0)
[2024-02-04 07:05] LABS: Urine Bacteria Many (Negative); Urine Squamous Cell >30 /LPF (Few); Urine Urothelial Cell >30 /LPF (FEW); Urine White Cell >100 /HPF (0-5)
[2024-02-04 07:14] LABS: Osmolality Urine 132 mOsm/kg (300-900)
[2024-02-04 07:16] LABS: Ionized Calcium 1.23 mMOL/L (1.15-1.33)
[2024-02-04 07:26] LABS: INR 1.02; PT 13.9 Sec (11.4-14.6)
[2024-02-04 07:27] LABS: APTT 37.2 Sec (23.4-35.0)
[2024-02-04 07:45] LABS: Intact PTH 13.8 pg/ml (13.6-85.8)
[2024-02-04 07:49] LABS: ALT (SGPT) 55 U/L (0-35); AST (SGOT) 80 U/L (14-36); Albumin 4.4 g/dl (3.5-5.0); Alkaline Phosphatase 112 U/L (38-126); Blood Urea Nitrogen 19 mg/dl (7-17); Calcium 10.4 mg/dl (8.4-10.2); Carbon Dioxide 29 mmol/L (22-30); Chloride 91 mmol/L (98-107); Estimated Creatinine Clearance 42 ml/min; Glucose 75 mg/dl (70-99); HDL Cholesterol 68 mg/dl; LDL Cholesterol, Calculated 143 mg/dl; Magnesium 1.6 mg/dl (1.6-2.3); Potassium 3.3 mmol/L (3.5-5.1); Sodium 136 mmol/L (135-145); Total Cholesterol 265 mg/dl (50-199); Total Protein 7.5 g/dl (6.3-8.2); Triglyceride 271 mg/dl (10-149); Very Low Density Lipoprotein 54 mg/dl (0-30); eGFR 49.48
[2024-02-04 07:54] LABS: Erythrocyte Sed Rate 34 mm/hour (0-20)
[2024-02-04 08:23] LABS: TSH Reflex To Free T4 0.68 uIU/ml (0.47-4.68)
[2024-02-04 09:08] LABS: Urine Sodium < 5 mmol/L (30-90)
[2024-02-04 09:30] LABS: Folate 4.2 ng/ml (2.76-20); Vitamin B12 740 pg/ml (239-931)
[2024-02-04] MEDS: VITAMIN C 250 MG PO (09:52)
[2024-02-04] MEDS: MAG-TAB SR 84 MG PO (09:52)
[2024-02-04] MEDS: INDERAL 20 MG PO (09:52)
[2024-02-04] MEDS: VITAMIN B-12 1000 MCG PO (09:52)
[2024-02-04] MEDS: NORVASC 10 MG PO (09:53)
[2024-02-04] MEDS: VITAMIN B1 100 MG PO (09:57)
--- NOTE | 2024-02-04 09:57 | CON.NEURO4 ---
Addendum entered and electronically signed by ESTEFANIA Kang 02/04/24 11:33:
Home medications include acetaminophen, amlodipine, as vitamin C, B12, famotidine, magnesium, propranolol
reatinine 1.3 mg/dL H 02/04/24 07:02 Lab
ESR 34 mm/hour H 02/04/24 07:02 Lab
Calcium 10.4 mg/dl H 02/04/24 07:02 Lab
AST 80 U/L H 02/04/24 07:02 Lab
ALT 55 U/L H 02/04/24 07:02 Lab
C-Reactive Protein 80.60 mg/L H 02/04/24 07:02 Lab
Potassium 3.3 mmol/L L 02/04/24 07:02 Lab
Chloride 91 mmol/L L 02/04/24 07:02 Lab
BUN 19 mg/dl H 02/04/24 07:02 Lab
Total Cholesterol 265 mg/dl H 02/04/24 07:02 Lab
VLDL Cholesterol, Calc 54 mg/dl H 02/04/24 07:02 Lab
CSF Glucose 80 mg/dl H 02/03/24 16:20 Lab
CSF Total Protein 72 mg/dl H 02/03/24 16:20 Lab
CSF Appearance Clear 02/03/24 16:20 Lab
CSF Color Colorless 02/03/24 16:20 Lab
CSF WBC 1 mm^3 02/03/24 16:20 Lab
CSF RBC 134 mm^3 02/03/24 16:20 Lab
CSF Cell Count Tube # 4 02/03/24 16:20 Lab
Total Protein 7.5 g/dl 02/04/24 07:02 Lab
Triglycerides 271 mg/dl H 02/04/24 07:02 Lab
BP 130/90,
pulse
110
resp 18
Temp 98.4
O2 100%
Addendum entered and electronically signed by Rik Serrano MD 02/04/24 11:18:
Studies reviewed.
I have personally examined the patient. I reviewed and agree with the STRATEGIC ACCOUNT EXECUTIVE's Note.
My addenda:
Awake, alert, interactive. No acute distress.
Speech intact.
Follows 2-step requests w/o difficulty. No tremor.
Extra-ocular movements grossly intact.
Facial movements full and symmetric. Hearing intact to normal conversational volume.
Normal UE movements bilaterally.
Neck: full ROM.
Chest: no dyspnea
Heart: no JVD
Ext: (-) Clubbing, (-) Cyanosis, (-) Edema
IMPRESSIONS/RECOMMENDATIONS:
Abrupt onset of bilateral lower extremity weakness which has progressively worsened with sensory change. Patient also reports hand sensation change
Differential diagnosis includes Guillain-Abdalla� syndrome, less likely transverse myelitis based on the patient's areflexia. Metabolic disturbances such as vitamin B12 deficiency can produce similar symptoms although not as acute. The lumbar
puncture findings are not very key account representative of GBS.
Check EMG
Check blood work for potential metabolic causes
Check MRI of brain and cervical spine as thoracic and lumbar spine imaging is unremarkable and the patient is experiencing hand sensation changes
Would initiate immediately immunoglobulin for a 5-day therapy set at a regimen of 0.4 g/kg per day
Provide thiamine to avoid alcohol withdrawal
Would replace gabapentin with pregabalin due to potentially better control over sensation discomfort by using a medication without 0 order kinetics
Rehabilitation evaluations
DVT prophylaxis
D/W patient
All questions answered.
Will continue to follow patient.
Original Note:
Documented by User: ESTEFANIA Kang 02/04/24 10:32
Consultation - Neurology 4
-
CONSULTING PHYSICIAN: Dr. Rik Serrano
REFERRING PHYSICIAN: Dr. Robel Clark
DICTATED BY: ESTEFANIA Kang
DATE/TIME OF REQUEST: 02/03/2024
DATE/TIME OF CONSULTATION: 02/04/2024
Reason for Consultation: gait dysfunction
History of Present Illness:
This is a 53 year old female With a past medical history of Graves' disease, anxiety, depression, insomnia, hypertension, hayfever, thyroid disease, headache, and alcohol use who has presented to the hospital with Bilateral lower extremity weakness
on 02/03/2024. Patient reports symptoms started about 4 weeks ago. She started to notice numbness and weakness starting in her feet and her toes which gradually got worse. She reports over the past 3 to 4 days weakness significantly increased and
yesterday was unable to get up off the couch. Weakness now goes as high as her upper thighs. She is having associated discomfort. She reports that occasionally she has shooting pain in her feet that radiates upward towards her thighs. Hear legs
feel heavy. She has no truncal weakness.She also has noted some numbness and tingling in her fingers. She does not notice any weakness of her upper extremities but has difficulty feeling things. She denies any GI illness or respiratory illness.
She does admit to frequent UTIs over the past 6 months. She has no significant back/neck pain. She does report some flank pain that has been associated with her urinary track infections. She denies any shortness of breath. She tries and trouble
swallowing. She denies any visual changes. She denies any falls. She did have COVID and flu vaccinations the beginning of November. She admits to some intermittent numbness or pain bilateral feet over the summer which resolved with going in the
pool.
Past Medical History:
Graves' disease, anxiety, depression, insomnia, hypertension, hayfever, thyroid disease, headache and alcohol use
Surgical History: Right breast biopsy, LASEK eye surgery x2
Family History: father-heart disease
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 She quit drinking ETH completely 1 month ago prior had 1-2 drinks a night. She does not smoke
Allergies: adhesive
Home Medications: see below
Review of Symptoms:
Patient denies any fever, headache, chest pain, shortness of breath, GI or symptoms.
Vital Signs: see below
Physical Exam:
The patient is afebrile, heart sounds S1 and S2 are regular and chest is clear to auscultation bilaterally.
Neurologic Examination:
The patient is awake, alert and oriented x 3. She is able to follow commands and answer questions appropriately. There is no aphasia or dysarthria. On cranial nerve assessment, pupils are 3 mm bilateral, round and reactive to light and
accommodation. Visual dillard are full. Extraocular movements are intact. Facial sensations are intact and bilaterally symmetrical, there is no facial asymmetry. Hearing is intact bilaterally to normal conversation volume. Tongue palate and uvula
are midline. Sternocleidomastoid strengths are full bilaterally. Motor strengths are 5/5 bilateral upper and 4+/5 bilateral lower extremities on medical research [place] scale. There is no drift or involuntary movement noted. Deep tendon reflexes
are absent bilateral upper and lower extremities and Babinski is absent bilaterally. Sensations of pain, light touch, temperature and vibration are reduced bilaterally distally. There was no extinction noted on double simultaneous stimulation.
Coordination is intact by finger to nose bilaterally.
Lab Results: see below
Neuro Imaging: MRI lumbar an Thoracic spine (02/04/2024)-Chronic mild degenerative changes of the thoracic spine and lumbar spine. No MRI evidence for cord signal alteration. No evidence for significant spinal canal stenosis or neuroforaminal
stenosis.
Impression:
VICKIE DECKER is a 53 year old F who has presented to the hospital with b/l le weakness unable to ambulate and numbness of fingers on hands bilaterally. Lower extremity weakness starting about 4 weeks ago. No recent URI or Gi illness has had
recent UTI's.
Differentials for the patient's presentation include GBS vs structural abnormality brain/cervical vs metabolic disturbance
Recommendations:
MRI cervical spine with and without contrast
MRI brain with and without contrast
Start daily thiamine 100 mg PO
EMG ordered
Start IVIG, will likely need 5 doses
obtain NIF and vital capacity twice a day
PT/OT evaluations
Will add additional labs for possible metabolic causes
DVT prophylaxis
Rest of medical management per primary care team
Discussed patient care with patient and neurologist, Dr. Serrano

Documented by User: Rik Serrano MD 02/04/24 10:55
Consultation - Neurology 4
-
CONSULTING PHYSICIAN: Dr. Rik Serrano
REFERRING PHYSICIAN: Dr. Robel Clark
DICTATED BY: ESTEFANIA Kang
DATE/TIME OF REQUEST: 02/03/2024
DATE/TIME OF CONSULTATION: 02/04/2024
Reason for Consultation: gait dysfunction
History of Present Illness:
This is a 53 year old female With a past medical history of Graves' disease, anxiety, depression, insomnia, hypertension, hayfever, thyroid disease, headache, and alcohol use who has presented to the hospital with Bilateral lower extremity weakness
on 02/03/2024. Patient reports symptoms started about 4 weeks ago. She started to notice numbness and weakness starting in her feet and her toes which gradually got worse. She reports over the past 3 to 4 days weakness significantly increased and
yesterday was unable to get up off the couch. Weakness now goes as high as her upper thighs. She is having associated discomfort. She reports that occasionally she has shooting pain in her feet that radiates upward towards her thighs. Hear legs
feel heavy. She has no truncal weakness.She also has noted some numbness and tingling in her fingers. She does not notice any weakness of her upper extremities but has difficulty feeling things. She denies any GI illness or respiratory illness.
She does admit to frequent UTIs over the past 6 months. She has no significant back/neck pain. She does report some flank pain that has been associated with her urinary track infections. She denies any shortness of breath. She tries and trouble
swallowing. She denies any visual changes. She denies any falls. She did have COVID and flu vaccinations the beginning of November. She admits to some intermittent numbness or pain bilateral feet over the summer which resolved with going in the
pool.
Past Medical History:
Graves' disease, anxiety, depression, insomnia, hypertension, hayfever, thyroid disease, headache and alcohol use
Surgical History: Right breast biopsy, LASIK eye surgery x2
Family History: father-heart disease
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 She quit drinking ETH completely 1 month ago prior had 1-2 drinks a night. She does not smoke
Allergies: adhesive
Home Medications: see below
Review of Symptoms:
Patient denies any fever, headache, chest pain, shortness of breath, GI or symptoms.
Vital Signs: see below
Physical Exam:
The patient is afebrile, heart sounds S1 and S2 are regular and chest is clear to auscultation bilaterally.
Neurologic Examination:
The patient is awake, alert and oriented x 3. She is able to follow commands and answer questions appropriately. There is no aphasia or dysarthria. On cranial nerve assessment, pupils are 3 mm bilateral, round and reactive to light and
accommodation. Visual dillard are full. Extraocular movements are intact. Facial sensations are intact and bilaterally symmetrical, there is no facial asymmetry. Hearing is intact bilaterally to normal conversation volume. Tongue palate and uvula
are midline. Sternocleidomastoid strengths are full bilaterally. Motor strengths are 5/5 bilateral upper and 4+/5 bilateral lower extremities on medical research [place] scale. There is no drift or involuntary movement noted. Deep tendon reflexes
are absent bilateral upper and lower extremities and Babinski is absent bilaterally. Sensations of pain, light touch, temperature and vibration are reduced bilaterally distally. There was no extinction noted on double simultaneous stimulation.
Coordination is intact by finger to nose bilaterally.
Lab Results: see below
Neuro Imaging: MRI lumbar an Thoracic spine (02/04/2024)-Chronic mild degenerative changes of the thoracic spine and lumbar spine. No MRI evidence for cord signal alteration. No evidence for significant spinal canal stenosis or neuroforaminal
stenosis.
Impression:
VICKIE DECKER is a 53 year old F who has presented to the hospital with b/l le weakness unable to ambulate and numbness of fingers on hands bilaterally. Lower extremity weakness starting about 4 weeks ago. No recent URI or Gi illness has had
recent UTI's.
Differentials for the patient's presentation include GBS vs structural abnormality brain/cervical vs metabolic disturbance
Recommendations:
MRI cervical spine with and without contrast
MRI brain with and without contrast
Start daily thiamine 100 mg PO
EMG ordered
Start IVIG, will likely need 5 doses
obtain NIF and vital capacity twice a day
PT/OT evaluations
Will add additional labs for possible metabolic causes
DVT prophylaxis
Rest of medical management per primary care team
Discussed patient care with patient and neurologist, Dr. Serrano
[2024-02-04] MEDS: NEURONTIN PO (09:59)
--- NOTE | 2024-02-04 10:23 | CM ---
Pt seen bedside. Initial assessment completed.
Pt lives alone in a 2STH- 3 steps to enter
Pt is independent, denies DME use for ambulating or daily functioning
Denies VN/PT hx
Denies financial insecurities
Address, point of contacts and insurance verified
PCP: Dr. Trever Rosas
Pharmacy: [facility]
Neuro pending
OT pending
Per pt, family will transport home at d/c
Plan: CM will cont to follow hospital course to determine any d/c needs
[2024-02-04 10:29] LABS: Glycohemoglobin (HgbA1c) 5.1 % (4.0-5.6)
[2024-02-04 10:39] LABS: % Basophils 0.8 % (0-2); % Eosinophils 0.4 % (0-6); % Immature Granulocytes 0.8 % (0-0.5); % Lymphocytes 21.9 % (20.5-51.1); % Monocytes 10.4 % (1.7-9.3); % Neutrophils 65.7 % (42.2-75.2); Absolute Basophils 0.1 10^3/uL (0-0.2); Absolute Immature Granulocytes 0.1 10^3/uL (0-0.05); Absolute Neutrophils 6.1 10^3/uL (1.4-6.5); Hematocrit 40.6 % (37.0-47.0); Mean Corp Hgb Conc. 34.5 g/dL (33.0-37.0); Mean Corpuscular Hgb 36.7 pg (27.0-31.0); Mean Corpuscular Volume 106.6 fL (81.0-99.0); Nucleated Red Blood Cells % 0 %; Platelet Count 347 10^3/uL (130-400); Red Blood Cell Count 3.81 10^6/uL (4.20-5.40); Red Cell Dist. Width 12.7 % (11.5-14.5); White Blood Cell Count 9.3 10^3/uL (4.8-10.8)
[2024-02-04 11:28] LABS: Osmolality Serum 281 mOsm/kg (275-300)
--- NOTE | 2024-02-04 12:53 | W.PN.HOSP.TC ---
Documented by User: Robel Clark MD, Resident 02/04/24 13:47
Assessment / Plan
Assessment / Plan
Bilateral ascending lower extremity weakness/ neuropathy involving the upper extremities as well
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
-Patient has had 3 alcoholic drinks a day for the past 10 years
-Normal folate and B12 levels on labs MCV 102
-lipid panel shows increased triglycerides level of 271, or total cholesterol of 265, advise patient on diet and to continue abstinence of alcohol
-gabapentin changed to pregabalin due to better control over sensation
-hepatic steatosis present on abdominal u/s, patient advised to continue abstinence of alcohol
-Lumbar puncture analysis shows increased protein, increased glucose, normal RBC, clear and colorless
- ESR and CRp elevated
- TSH normal
- MRI normal
-CSF cultures negative
-Neuro following, started patient on immunoglobulin 5 day therapy
Urinary tract infection?:
-Increasing WBC, no costovertebral angle tenderness, afebrile, no dysuria or incontinence
-Initial urine analysis is not clean due to having squamous epithelial cells more than 30
-Urine culture pending
Hyperferritinemia:
- ferritin is 1290
- could be due to alcohol use, fatty liver disease, or an inflammatory disorder have GI evaluate
Dehydration:
- urine sodium low and urine, osmolality low also
Macrocytic Anemia:
- hb is 13.7, mcv 102
- Likely due to alcohol abuse, advised on cessation of further alcohol use
Lactic acidosis:
- level is 2.1
- Blood cultures pending
Leukocytosis:
-WBC count is 9.3 and trending down, resolved
Mild hypercalcemia:
-Corrected level is 10.4
- PTH normal
- in case calcium level increases Order free ionized calcium,
Elevated liver enzymes:
-AST, ALT trending down, continue to observe
Acute hyponatremia:
-Sodium of 136, resolved
Hypertension:
- Continue Amlodipine
Depression:
- Continue Escitalopram
Hyperglycemia:
- serum glucose is 140
- HbA1c is 5.1
DVT- Lovenox
Anticipated Discharge: 24 - 48 hours
Subjective/Interval History
-
Date of Service: February 04, 2024
No overnight events
No acute medical problems
Objective Data
-
Labs:
Laboratory Results
02/04/24
07:02
WBC 9.3
Hgb 14.0
Hct 40.6
Plt Count 347 D
PT 13.9
INR 1.02
APTT 37.2 H
Sodium 136
Potassium 3.3 L
Chloride 91 L
Carbon Dioxide 29
BUN 19 H
Creatinine 1.3 H
Glucose 75
Calcium 10.4 H
Total Bilirubin 1.0
AST 80 H
ALT 55 H
Alkaline Phosphatase 112
Vital Signs:
Vital Signs
Temp Pulse Resp BP Pulse Ox
98.8 F 105 18 134/86 96
02/04/24 11:55 02/04/24 11:55 02/04/24 11:55 02/04/24 11:55 02/04/24 11:55
I&O
02/03/24 02/04/24 02/05/24
06:59 06:59 06:59
Intake Total 960 / 960
Balance 960 / 960
Review of Systems
-
History Source: Patient
Constitutional: Denies Fever or Chills
EENT: Denies Blurry Vision or Eye Pain
Respiratory: Denies Cough or Wheezing
Cardiac: Denies Chest Pain, Diaphoresis, Palpitations, Syncope, PND or Orthopnea
Abdomen/GI: Denies Abdominal Pain, Nausea, Vomiting, Diarrhea or Constipated
Genitourinary: Denies Dysuria
Musculoskeletal: Reports Muscle Weakness (Lower extremities bilaterally ); Denies Joint Pain
Skin: Denies Itching or Rash
Neuro: Reports Weakness (Bilateral lower extremities) and Numbness (Bilateral lower extremities); Denies Dizzy
Physical Exam
-
Respiratory: Clear to Auscultation
Cardiac: Regular Rhythm and S1/S2
GI: Soft, Nontender, Nondistended and Normal Bowel Sounds
Genito-urinary: Negative Costovertebral Angle Tend
Musculoskeletal: No Cyanosis and No Edema
Skin: Warm and Dry
Neuro: Awake, Alert, Oriented and AO x 3; Negative No Sensory Deficits or DTR's Intact & Symmetrica (ankle reflexes decreased bilaterally lower extremities)
Data Reviewed
-
Medical Tests (Nuc Med, Echo etc): Image personally visualized and interpreted and Discussed with Physician
Labs: Labs Reviewed by me and Discussed with Physician

Documented by User: Keshawn Trujillo MD 02/04/24 14:15
Today's Communication/Plan
-
Assessment / Plan
Assessment / Plan
ascending paraesthesias after vaccine admin at the beginning of November
-?GBS, demyelinating vs alcohol neuropathy vs nutritional deficiency vs underlying psych
-s/p LP in the ED
-sensation and proprioception intact, muscle b/l equal 4/5
-check b12/folate
-neuro following
-rec emg, mri spine and brain mri
UA dirty, >30 ep's on UA and no cystitis symptoms
-unlikely cystitis on pyelo josué as no evidence of perinephric stranding on ct
macrocytosis
-likely related to alochol use
-check b12/folate
transaminitis
-likley related to fatty liver
-ruqus as expected
alcohol use disorder
-though has not had a drink in 4 weeks
-thiamine
-folate
Physical Exam
-
Genito-urinary: No Costovertebral Tender
Neuro: Awake, Alert, Oriented, AO x 3, No Motor Deficits, Nonfocal/Grossly Intact and Central Nerve's Intact
[2024-02-04] MEDS: KCL ELIXIR 40 MEQ PO (13:34)
[2024-02-04] MEDS: GAMMAGARD 200 IV (13:35)
--- NOTE | 2024-02-04 14:30 | W.PN.HOSP.TC ---
Today's Communication/Plan
-
- follow up with neurology
Assessment / Plan
Assessment / Plan
Ischemic infarct of the corpus callosum:
- MRI of brain shows a infarct at the corpus callosum
- Physiatry consulted
- Aspirin/ clopidogrel for 21 days, then just aspirin
- Low dose atorvastatin 20 mg
- PT/OT
- echo normal
- CTA normal
- Antiphospholipid antibody, protein C, protein S, immunological studies pending
- Follow up with neurology
Ascending parasthesias:
- D/c immunoglobulins
-Patient has had 3 alcoholic drinks a day for the past 10 years
-Normal folate and B12 levels on labs MCV 102
-lipid panel shows increased triglycerides level of 271, or total cholesterol of 265, advise patient on diet and to continue abstinence of alcohol
-gabapentin changed to pregabalin due to better control over sensation
-hepatic steatosis present on abdominal u/s, patient advised to continue abstinence of alcohol
-Lumbar puncture analysis shows increased protein, increased glucose, normal RBC, clear and colorless
- ESR and CRp elevated
- TSH normal
- MRI normal
-CSF cultures negative
Urinary tract infection?:
- Repeat urine culture
Hyperferritinemia:
- ferritin is 1290
- could be due to alcohol use, fatty liver disease, or an inflammatory disorder have GI evaluate
Dehydration:
- urine sodium low and urine, osmolality low also
Macrocytic Anemia:
- hb is 13.7, mcv 109
- Likely due to alcohol abuse, advised on cessation of further alcohol use
Lactic acidosis:
- level is 2.1
- Blood cultures pending
Leukocytosis:
-WBC count is 9.3 and trending down, resolved
Mild hypercalcemia:
-Corrected level is 10.4
- PTH normal
- in case calcium level increases Order free ionized calcium,
Elevated liver enzymes:
-AST, ALT trending down, continue to observe
Acute hyponatremia:
-Sodium of 136, resolved
Hypertension:
- Continue Amlodipine
Depression:
- Continue Escitalopram
Hyperglycemia:
- serum glucose is 140
- HbA1c is 5.1
DVT- Lovenox
Anticipated Discharge: 24 - 48 hours
Subjective/Interval History
-
Date of Service: February 04, 2024
No acute overnight events.
Objective Data
-
Labs:
Laboratory Results
02/04/24
07:02
WBC 9.3
Hgb 14.0
Hct 40.6
Plt Count 347 D
PT 13.9
INR 1.02
APTT 37.2 H
Sodium 136
Potassium 3.3 L
Chloride 91 L
Carbon Dioxide 29
BUN 19 H
Creatinine 1.3 H
Glucose 75
Calcium 10.4 H
Total Bilirubin 1.0
AST 80 H
ALT 55 H
Alkaline Phosphatase 112
Vital Signs:
Vital Signs
Temp Pulse Resp BP Pulse Ox
98.8 F 83 18 116/80 96
02/04/24 11:55 02/04/24 14:23 02/04/24 11:55 02/04/24 14:23 02/04/24 11:55
I&O
02/03/24 02/04/24 02/05/24
06:59 06:59 06:59
Intake Total 960 / 960
Balance 960 / 960
Review of Systems
-
History Source: Patient
Constitutional: Denies Fever or Chills
EENT: Denies Blurry Vision or Eye Pain
Respiratory: Denies Cough or Wheezing
Cardiac: Denies Chest Pain, Diaphoresis, Palpitations, Syncope, PND or Orthopnea
Abdomen/GI: Denies Abdominal Pain, Nausea, Vomiting, Diarrhea or Constipated
Genitourinary: Denies Dysuria
Musculoskeletal: Reports Muscle Weakness (Lower extremities bilaterally ); Denies Joint Pain
Skin: Denies Itching or Rash
Neuro: Reports Weakness (Bilateral lower extremities) and Numbness (Bilateral lower extremities); Denies Dizzy
Physical Exam
-
Respiratory: Clear to Auscultation
Cardiac: Regular Rhythm and S1/S2
GI: Soft, Nontender, Nondistended and Normal Bowel Sounds
Genito-urinary: No Costovertebral Tender; Negative Costovertebral Angle Tend
Musculoskeletal: No Cyanosis and No Edema
Skin: Warm and Dry
Neuro: Awake, Alert, Oriented, AO x 3 and No Motor Deficits; Negative No Sensory Deficits or DTR's Intact & Symmetrica
Data Reviewed
-
Medical Tests (Nuc Med, Echo etc): Image personally visualized and interpreted and Discussed with Physician
Labs: Labs Reviewed by me and Discussed with Physician
--- NOTE | 2024-02-04 15:55 | NS.EMG ---
Electromyogram (EMG) Study
EMG/NCS Summary
EMG/nerve conduction study of both lower limbs and the left upper limb was performed in the patient's hospital room.
Electrodiagnostic Impressions: Normal EMG/nerve conduction study of both lower limbs and the left upper limb.
Full dictated report, tabular data, and waveforms to follow.
[2024-02-04] MEDS: LYRICA 50 MG PO ×2 (17:04→21:13)
[2024-02-04] MEDS: LOVENOX 40 MG SC (17:04)
[2024-02-04] MEDS: ATIVAN 0.5 MG PO (17:04)
[2024-02-05] VITALS (7 sets, daily range): BP systolic 96–135; BP diastolic 64–90; PULSE 79; O2SAT 99
[2024-02-05] MEDS: TYLENOL PO ×3 (01:03→13:10)
[2024-02-05 07:35] LABS: Blood Urea Nitrogen 18 mg/dl (7-17); Calcium 9.7 mg/dl (8.4-10.2); Carbon Dioxide 34 mmol/L (22-30); Chloride 100 mmol/L (98-107); Estimated Creatinine Clearance 54 ml/min; Glucose 84 mg/dl (70-99); Potassium 4.4 mmol/L (3.5-5.1); Sodium 142 mmol/L (135-145); eGFR > 60.00
[2024-02-05 07:54] LABS: Hematocrit 36.9 % (37.0-47.0); Hemoglobin 12.4 g/dL (12.0-16.0); Mean Corp Hgb Conc. 33.6 g/dL (33.0-37.0); Mean Corpuscular Hgb 36.8 pg (27.0-31.0); Mean Corpuscular Volume 109.5 fL (81.0-99.0); Mean Platelet Volume 11.3 fL (7.4-10.4); Platelet Count 265 10^3/uL (130-400); Red Blood Cell Count 3.37 10^6/uL (4.20-5.40); Red Cell Dist. Width 12.7 % (11.5-14.5); White Blood Cell Count 4.6 10^3/uL (4.8-10.8)
[2024-02-05] MEDS: VITAMIN C 250 MG PO (08:56)
[2024-02-05] MEDS: VITAMIN B1 100 MG PO (08:56)
[2024-02-05] MEDS: VITAMIN B-12 1000 MCG PO (08:56)
[2024-02-05] MEDS: NORVASC 10 MG PO (08:57)
[2024-02-05] MEDS: INDERAL 20 MG PO (08:57)
[2024-02-05] MEDS: MAG-TAB SR 84 MG PO (08:57)
[2024-02-05] MEDS: TYLENOL 650 MG PO ×3 (08:57→21:51)
--- NOTE | 2024-02-05 08:57 | W.PN.NEURO.1 ---
Subjective/Objective
Subjective Data
Date of Service: February 05, 2024
Patient reports no significant change in symptomatology currently
Objective Data
Vital Signs
Temp Pulse Resp BP Pulse Ox
36.8 C 98 18 135/90 96
02/05/24 07:34 02/05/24 07:34 02/05/24 07:34 02/05/24 07:34 02/05/24 07:34
Lab Results
02/05/24 06:09
02/05/24 06:09
PT 13.9 Sec (11.4-14.6) 02/04/24 07:02
INR 1.02 02/04/24 07:02
APTT 37.2 Sec (23.4-35.0) H 02/04/24 07:02
Sodium 142 mmol/L (135-145) 02/05/24 06:09
Potassium 4.4 mmol/L (3.5-5.1) D 02/05/24 06:09
BUN 18 mg/dl (7-17) H 02/05/24 06:09
Glucose 84 mg/dl (70-99) 02/05/24 06:09
Calcium 9.7 mg/dl (8.4-10.2) 02/05/24 06:09
LDL Cholesterol, Calc 143 mg/dl 02/04/24 07:02
Vitamin B12 740 pg/ml (239-931) 02/04/24 07:02
Patient Allergies
adhesive Allergy (Verified 02/03/24 10:47)
Rash
Review of Systems
-
History Source: Patient
All other systems: Reviewed and negative
Abdomen/GI: Negative Incontinence of Stool
Genitourinary: Negative Incontinence
Musculoskeletal: Negative Back Pain or Neck Pain
Neuro: Weakness and Numbness
Physical Exam
-
General: No Apparent Distress and Appears Stated Age
Eyes: Round OU, [place] Conjunctivae and No Ptosis
HEENT: Anicteric and Moist Mucous Membranes
Neck: Full Range of Motion
Respiratory: No Dyspnea
Cardiac: No JVD
GI: Non-distended
Skin: Unremarkable
Extremities: No Clubbing, No Cyanosis and No Edema
Psych: Intact Judgement/Insight
Extended Neurological Exam
Mood & Affect: Mood Unremarkable and Affect Unremarkable
Attention Span & Concentration: Awake, Alert and Interactive
Memory: Unremarkable
Tremor: Hand Tremor Absent and Head Tremor Absent
Speech: Quality Unremarkable and Quantity Unremarkable
Cranial Nerve II: Left Eye: Pupillary Size Unremarkable and Visual Sorensen Grossly Intact
Cranial Nerve II: Right Eye: Pupillary Size Unremarkable and Visual Sorensen Grossly Intact
Cranial Nerves III, IV, : Extraocular Movement: Grossly Intact
Cranial Nerve VII: Facial Symmetry: Normal Facial Symmetry
Cranial Nerve VIII: Hearing: Unremarkable Hearing to Normal Conversational Volume
Cranial Nerve XI: Shoulder Shrug: Unremarkable
Muscle Strength, Overall: Reduced Bilaterally
Muscle Bulk & Tone: Bulk Unremarkable and Tone Unremarkable
Pronator Drift: No Drift in Upper Extremities
Touch Sensation: Unremarkable
Coordination: Ahpxob-sacc-jgrbue Testing Unremarkable
Past History
Past History
ED Past Medical History: HTN, Hypothyroidism, Psychiatric (gen anx D/O) and Other (Grave's disease)
ED Past Surgical History: Other (Right breast biopsy, LASIK eye surgery x2)
Social History
Tobacco: Non-smoker
Alcohol: Former
Drug: None
Personal:
Living: with family
Employment: Employed
Family History
Family History: Other (reviewed and non-contributory)
Medications
-
Medications:
Generic Name Dose Route Start Last Admin
Trade Name Freq PRN Reason Stop Dose Admin
Acetaminophen 650 mg 02/03/24 20:00 02/05/24 05:06
Acetaminophen 325 Mg Tablet PO 03/02/24 19:59 Not Given
Q4WA [facility]
Amlodipine Besylate 10 mg 02/04/24 08:00 02/04/24 09:53
Amlodipine 10 Mg Tablet PO 03/03/24 07:59 10 mg
DAILY NAVIN Administration
Ascorbic Acid 250 mg 02/04/24 08:00 02/04/24 09:52
Ascorbic Acid 250 Mg Tablet PO 03/03/24 07:59 250 mg
DAILY NAVIN Administration
Aspirin 81 mg 02/05/24 10:00
Aspirin 81 Mg Chewable Tablet PO 03/04/24 09:59
DAILY NAVIN
Atorvastatin Calcium 20 mg 02/05/24 18:00
Atorvastatin (Lipitor) 20 Mg Tablet PO 03/04/24 17:59
QPM NAVIN
Cyanocobalamin 1,000 mcg 02/04/24 08:00 02/04/24 09:52
Cyanocobalamin 1,000 Mcg Tablet PO 03/03/24 07:59 1,000 mcg
DAILY NAVIN Administration
Enoxaparin Sodium 40 mg 02/03/24 18:00 02/04/24 17:04
Enoxaparin Sodium 40 Mg/0.4 Ml Syringe SC 03/02/24 17:59 40 mg
QPM NAVIN Administration
Famotidine 20 mg 02/03/24 19:56
Famotidine 20 Mg Tablet PO 03/02/24 19:55
DAILYPRN PRN
heartburn
Magnesium 84 mg 02/04/24 08:00 02/04/24 09:52
Magnesium Lactate 84 Mg Tablet PO 03/03/24 07:59 84 mg
DAILY NAVIN Administration
Polyethylene Glycol 17 grams 02/03/24 16:51
Polyethylene Glycol Powder 17 Grams Packet PO 03/02/24 16:50
DAILYPRN PRN
constipation
Pregabalin 100 mg 02/05/24 09:00
Pregabalin 100 Mg Capsule PO 03/04/24 08:59
TID NAVIN
Propranolol HCl 20 mg 02/04/24 08:00 02/04/24 09:52
Propranolol 20 Mg Regular Release Tablet PO 03/03/24 07:59 20 mg
DAILY NAVIN Administration
Senna/Docusate Sodium 1 tablet 02/03/24 16:51
Docusate W/Senna (Kathie-Colace) Tablet PO 03/02/24 16:50
BIDPRN PRN
constipation
Sodium Chloride 0 flush 02/03/24 19:00
Sodium Chloride 0.9% (Flush) Syringe IV 03/02/24 18:59
PER PROTOCOL NAVIN
Thiamine HCl 100 mg 02/04/24 10:00 02/04/24 09:57
Thiamine 100 Mg Tablet PO 02/06/24 08:01 100 mg
DAILY NAVIN Administration
[2024-02-05] MEDS: FLUSH (NSS) 1 FLUSH IV (08:58)
[2024-02-05] MEDS: LYRICA 50 MG PO (08:58)
[2024-02-05] MEDS: LOW STRENGTH ASPIRIN 81 MG PO (09:00)
[2024-02-05] MEDS: MIRALAX 17 GRAMS PO (09:15)
[2024-02-05] MEDS: LYRICA PO (10:07)
--- NOTE | 2024-02-05 10:07 | W.PN.NEURO.1 ---
Addendum entered and electronically signed by Rik Serrano MD 02/05/24 12:39:
Studies reviewed.
I have personally examined the patient. I reviewed and agree with the [employer]'s Note.
My addenda:
Awake, alert, interactive. No acute distress.
Speech intact.
Follows 2-step requests w/o difficulty. No tremor.
Extra-ocular movements grossly intact.
Facial movements full and symmetric. Hearing intact to normal conversational volume.
Normal UE movements bilaterally.
Neck: full ROM.
Chest: no dyspnea
Heart: no JVD
Ext: (-) Clubbing, (-) Cyanosis, (-) Edema
IMPRESSIONS/RECOMMENDATIONS:
Abrupt onset of BLExtremity weakness with absent lower extremity reflexes although intact in upper extremities
With MRI of brain both using and not using contrast was suggestive of a rare splenium of corpus callosum lesion of unclear etiology, may be stroke. Elevated LFTs, elevated Ferritin and CRP, mildly elevated protein in lumbar puncture results without
elevated leukocyte count. EMG study of bilateral lower extremities was unremarkable. MRI imaging of the entire spine with and without contrast was unremarkable
Ddx: hypercoagulable state, autoimmue state
Await pending results, adding additional blood work to evaluate for the above conditions
Discontinue use of immunoglobulin as the patient is not clearly experiencing Guillain-Abdalla� syndrome especially in light of unremarkable EMG
Continue thiamine
Rehabilitation evaluations
Check CTA head and neck as the patient is possibly the victim of stroke in an unusual location
Provide aspirin and clopidogrel for 21 days, then aspirin alone
Provide low-dose atorvastatin 20 mg daily due to the patient's elevated LFTs as the patient may have experienced a stroke by imaging results
D/W patient
All questions answered.
Will continue to follow patient.
Original Note:
Today's Communication / Plan
-
CTA head and neck
-start ASA 81 mg, start atorvastatin
-stop IVIG
-PT/OT evaluations
Neuro Assessment/Plan
Assessment
Abrupt onset of bilateral lower extremity weakness which has progressively worsened with sensory change, likely d/t acute infarct involving the splenium of the corpus callosum. EMG negative ruling out GBS.
Plan
-reviewed EMG results-Normal EMG/nerve conduction study of both lower limbs and the left upper limb.
-again reviewed LP
MRI brain 02/04/2024
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
MRI c-spine 02/04/2024
Multilevel degenerative changes of the cervical spine as detailed, worst at C5-6 where disc and uncovertebral/facet disease contribute to mild spinal canal neural foraminal stenosis at this level.
Limited exam from patient motion artifact; however, no convincing MR evidence for spinal cord abnormality/transverse myelitis.
MRI-T-spine/MRI L-spine 02/04/2024
Chronic mild degenerative changes of the thoracic spine and lumbar spine. No MRI evidence for cord signal alteration. No evidence for significant spinal canal stenosis or neuroforaminal stenosis.
Need CTA head and Neck
-start ASA 81 mg daily
-check Echo
-LDL 143 Start Atorvastatin 20 mg
-goal normotension
-goal normoglycemia, HgbA1c 5.1
-stop immunoglobulin
-thiamine
-continue B12 supplement
-continue pregabalin due to potentially better control over sensation discomfort by using a medication without 0 order kinetic
-continue Rehabilitation evaluations
-will order additional labs for possible etiology of stroke as cause unclear at this time
-DVT prophylaxis
All questions answered.
Will continue to follow patient.
CSF Glucose 80 mg/dl H 02/03/24 16:20 Lab
CSF Total Protein 72 mg/dl H 02/03/24 16:20 Lab
CSF Appearance Clear 02/03/24 16:20 Lab
CSF Color Colorless 02/03/24 16:20 Lab
CSF WBC 1 mm^3 02/03/24 16:20 Lab
CSF RBC 134 mm^3 02/03/24 16:20 Lab
CSF Cell Count Tube # 4 02/03/24 16:20 Lab
Total Protein 7.5 g/dl 02/04/24 07:02 Lab
Triglycerides 271 mg/dl H 02/04/24 07:02 Lab
TSH (Reflex) 0.68 uIU/ml 02/04/24 07:02 Lab
PTH Intact 13.8 pg/ml 02/04/24 07:02 Lab
Subjective/Objective
Subjective Data
Date of Service: February 05, 2024
Pt seen at bedside today, she has had no improvement of symptoms. She has not been out of bed to ambulate.
Objective Data
Vital Signs
Temp Pulse Resp BP Pulse Ox
98.3 F 98 18 135/90 96
02/05/24 07:34 02/05/24 07:34 02/05/24 07:34 02/05/24 07:34 02/05/24 07:34
Lab Results
02/05/24 06:09
02/05/24 06:09
PT 13.9 Sec (11.4-14.6) 02/04/24 07:02
INR 1.02 02/04/24 07:02
APTT 37.2 Sec (23.4-35.0) H 02/04/24 07:02
Sodium 142 mmol/L (135-145) 02/05/24 06:09
Potassium 4.4 mmol/L (3.5-5.1) D 02/05/24 06:09
BUN 18 mg/dl (7-17) H 02/05/24 06:09
Glucose 84 mg/dl (70-99) 02/05/24 06:09
Calcium 9.7 mg/dl (8.4-10.2) 02/05/24 06:09
LDL Cholesterol, Calc 143 mg/dl 02/04/24 07:02
Vitamin B12 740 pg/ml (469-931) 02/04/24 07:02
Patient Allergies
adhesive Allergy (Verified 02/03/24 10:47)
Rash
LDL Level: >70, statin ordered
Review of Systems
-
History Source: Patient
All other systems: Reviewed and negative
Constitutional: No Symptoms
EENT: No Symptoms Reported
Respiratory: No Symptoms
Cardiac: No Symptoms
Abdomen/GI: No Symptoms
Genitourinary: No Symptoms
Musculoskeletal: Myalgias and Muscle Weakness
Skin: No Symptoms
Neuro: Weakness, Numbness and See existing Neuro Note; Negative Dizzy, Headache, Tremors or Speech Problem
Physical Exam
-
General: No Apparent Distress
Eyes: Round OU
HEENT: Normocephalic
Neck: Full Range of Motion
Respiratory: No Dyspnea
Cardiac: Regular Rhythm
GI: Soft
Skin: Unremarkable
Extremities: No Clubbing, No Cyanosis and No Edema
Psych: Unremarkable
Extended Neurological Exam
Mood & Affect: Mood Unremarkable and Affect Unremarkable
Attention Span & Concentration: Awake, Alert, Interactive and No Difficulty with 2 Step Request
Memory: Unremarkable
Tremor: Hand Tremor Absent and Head Tremor Absent
Speech: Quality Unremarkable, Quantity Unremarkable and Rate of Production Unremarkable
Cranial Nerve II: Left Eye: Pupillary Reactivity Unremarkable and Pupillary Size Unremarkable
Cranial Nerve II: Right Eye: Pupillary Reactivity Unremarkable and Pupillary Size Unremarkable
Cranial Nerves III, IV, : Extraocular Movement: Extraocular Movement Full in all Directions
Cranial Nerve VII: Facial Symmetry: Normal Facial Symmetry
Cranial Nerve VIII: Hearing: Unremarkable Hearing to Normal Conversational Volume
Cranial Nerves IX, X: Palate Movement: Palate Elevation Symmetric
Cranial Nerve XI: Shoulder Shrug: Unremarkable
Cranial Nerve XII: Tongue Protusion: Midline
Muscle Strength, Overall: Reduced (4/5 weakness b/l LE, 4+/5 b/l UE)
Muscle Bulk & Tone: Negative Tone Unremarkable (reduced b/l LE)
Pronator Drift: No Drift in Upper Extremities
Deep Tendon Reflexes: Other (absent b/l LE, 2+ upper extremities)
Coordination: Ehrljq-nkda-sjfseb Testing Unremarkable
Data Reviewed
-
MRI Head: Report Reviewed and Image Reviewed
MRI Cervical Spine: Report Reviewed and Image Reviewed
MRI Thoracic Spine: Report Reviewed and Image Reviewed
MRI Lumbar Spine: Report Reviewed and Image Reviewed
Echocardiogram: Ordered
Labs: Report Reviewed
Lipid Profile: Report Reviewed
HgbA1C: Report Reviewed
[2024-02-05 11:35] LABS: Complement C3 130 mg/dl (88-165)
[2024-02-05] MEDS: PLAVIX 75 MG PO (14:28)
--- NOTE | 2024-02-05 15:43 | CM ---
Chart reviewed.
PT/OT currently recommending acute rehab. CM to send referrals to preferred rehabs once identified by pt and/or family. PT/OT will cont to follow
Will need BC personal choice auth
Plan: Acute rehab; pending auth
--- NOTE | 2024-02-05 15:58 | W.PN.HOSP.TC ---
Addendum entered and electronically signed by Keshawn Trujillo MD 02/05/24 17:11:
acute/subacute cva
-ascending paraesthesias b/l along with ambulagtory dysfunction after vaccine admin at the beginning of November
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
-s/p LP in the ED, follow up cx and cyto
-sensation and proprioception intact, muscle b/l equal 4/5
-mri spine without acute findings
-emg without evidence of AIDP, therefore, no longer believe to be gbs, stop ivig
-mri brain shows nonhemorrhagic acute/subacute infarct involving the splenium of the corpus callosum.
-check autoimmune sero and vasculitis serologies which have been prdered
-neuro following
--neuro order asa and statin (mod dosing due to lft's)
--pt/ot/physiatry consulted
UA dirty, >30 ep's on UA and no cystitis symptoms
-unlikely cystitis on pyelo josué as no evidence of perinephric stranding on ct
macrocytosis
-likely related to alochol use
-check b12/folate
transaminitis
-likley related to fatty liver
-ruqus as expected
alcohol use disorder
-though has not had a drink in 4 weeks
-thiamine
-folate
Original Note:
Today's Communication/Plan
-
- follow up with neurology
- check labs
Assessment / Plan
Assessment / Plan
Ischemic infarct of the corpus callosum:
- MRI of brain shows a infarct at the corpus callosum
- Physiatry consulted
- Aspirin/ clopidogrel for 21 days, then just aspirin
- Low dose atorvastatin 20 mg
- PT/OT
- echo normal
- CTA normal
- Antiphospholipid antibody, protein C, protein S, immunological studies pending
- Follow up with neurology
Ascending parasthesias:
- D/c immunoglobulins
-Patient has had 3 alcoholic drinks a day for the past 10 years
-Normal folate and B12 levels on labs MCV 102
-lipid panel shows increased triglycerides level of 271, or total cholesterol of 265, advise patient on diet and to continue abstinence of alcohol
-gabapentin changed to pregabalin due to better control over sensation
-hepatic steatosis present on abdominal u/s, patient advised to continue abstinence of alcohol
-Lumbar puncture analysis shows increased protein, increased glucose, normal RBC, clear and colorless
- ESR and CRp elevated
- TSH normal
- MRI normal
-CSF cultures negative
Urinary tract infection?:
- Repeat urine culture
Hyperferritinemia:
- ferritin is 1290
- could be due to alcohol use, fatty liver disease, or an inflammatory disorder have GI evaluate
Dehydration:
- urine sodium low and urine, osmolality low also
Macrocytic Anemia:
- hb is 13.7, mcv 109
- Likely due to alcohol abuse, advised on cessation of further alcohol use
Lactic acidosis:
- level is 2.1
- Blood cultures pending
Leukocytosis:
-WBC count is 9.3 and trending down, resolved
Mild hypercalcemia:
-Corrected level is 10.4
- PTH normal
- in case calcium level increases Order free ionized calcium,
Elevated liver enzymes:
-AST, ALT trending down, continue to observe
Acute hyponatremia:
-Sodium of 136, resolved
Hypertension:
- Continue Amlodipine
Depression:
- Continue Escitalopram
Hyperglycemia:
- serum glucose is 140
- HbA1c is 5.1
DVT- Lovenox
Anticipated Discharge: 24 - 48 hours
Subjective/Interval History
-
Date of Service: February 05, 2024
Objective Data
-
Labs:
Laboratory Results
02/05/24
06:09
WBC 4.6 L
Hgb 12.4
Hct 36.9 L
Plt Count 265 D
Sodium 142
Potassium 4.4 D
Chloride 100
Carbon Dioxide 34 H
BUN 18 H
Creatinine 1.0
Glucose 84
Calcium 9.7
Vital Signs:
Vital Signs
Temp Pulse Resp BP Pulse Ox
98.7 F 94 18 118/81 97
02/05/24 11:52 02/05/24 11:52 02/05/24 11:52 02/05/24 11:52 02/05/24 11:52
I&O
02/04/24 02/05/24 02/06/24
06:59 06:59 06:59
Intake Total 960 / 960 720 / 720
Balance 960 / 960 720 / 720
[2024-02-05] MEDS: LYRICA 100 MG PO ×2 (17:15→21:51)
[2024-02-05] MEDS: LIPITOR 20 MG PO (17:16)
[2024-02-05] MEDS: LOVENOX 40 MG SC (17:16)
[2024-02-06] VITALS (8 sets, daily range): BP systolic 91–119; BP diastolic 56–78; PULSE 86–87; O2SAT 95–97
[2024-02-06] MEDS: ULTRAM 25 MG PO ×2 (00:08→22:47)
[2024-02-06] MEDS: TYLENOL PO ×2 (01:37→05:06)
[2024-02-06 01:57] LABS: ANA, IgG Reflex to HEp-2 None Detected (None Detected)
[2024-02-06 02:30] LABS: Asialo-GM1 Antibody 19 IV (0-50); GD1a Antibody 8 IV (0-50); GD1b Antibodies 26 IV (0-50); GM1 Antibody 17 IV (0-50); GM2 Antibody 13 IV (0-50); GQ1b Antibodies 8 IV (0-50)
[2024-02-06 07:08] LABS: % Basophils 1.2 % (0-2); % Eosinophils 3.2 % (0-6); % Immature Granulocytes 1.3 % (0-0.5); % Lymphocytes 34.9 % (20.5-51.1); % Monocytes 12.2 % (1.7-9.3); % Neutrophils 47.2 % (42.2-75.2); Absolute Basophils 0.1 10^3/uL (0-0.2); Absolute Eosinophils 0.2 10^3/uL (0-0.7); Absolute Immature Granulocytes 0.1 10^3/uL (0-0.05); Absolute Lymphocytes 2.1 10^3/uL (1.2-3.4); Absolute Monocytes 0.7 10^3/uL (0.1-0.6); Absolute Neutrophils 2.8 10^3/uL (1.4-6.5); Hematocrit 33.9 % (37.0-47.0); Hemoglobin 11.8 g/dL (12.0-16.0); Mean Corp Hgb Conc. 34.8 g/dL (33.0-37.0); Mean Corpuscular Hgb 37.9 pg (27.0-31.0); Mean Platelet Volume 11.1 fL (7.4-10.4); Nucleated Red Blood Cells % 0 %; Platelet Count 289 10^3/uL (130-400); Red Blood Cell Count 3.11 10^6/uL (4.20-5.40); Red Cell Dist. Width 12.4 % (11.5-14.5)
[2024-02-06 07:39] LABS: Blood Urea Nitrogen 21 mg/dl (7-17); Calcium 9.6 mg/dl (8.4-10.2); Carbon Dioxide 32 mmol/L (22-30); Chloride 101 mmol/L (98-107); Estimated Creatinine Clearance 54 ml/min; Glucose 88 mg/dl (70-99); Potassium 4.2 mmol/L (3.5-5.1); Sodium 140 mmol/L (135-145); eGFR > 60.00
[2024-02-06] MEDS: PLAVIX 75 MG PO (10:08)
[2024-02-06] MEDS: MAG-TAB SR 84 MG PO (10:08)
[2024-02-06] MEDS: INDERAL 20 MG PO (10:08)
[2024-02-06] MEDS: VITAMIN C 250 MG PO (10:08)
[2024-02-06] MEDS: VITAMIN B-12 1000 MCG PO (10:09)
[2024-02-06] MEDS: NORVASC 10 MG PO (10:09)
[2024-02-06] MEDS: TYLENOL 650 MG PO ×4 (10:09→21:36)
[2024-02-06] MEDS: VITAMIN B1 100 MG PO (10:09)
[2024-02-06] MEDS: LOW STRENGTH ASPIRIN 81 MG PO (10:09)
[2024-02-06] MEDS: LYRICA 100 MG PO ×3 (10:10→21:37)
[2024-02-06] MEDS: SENOKOT-S 1 TABLET PO (10:14)
--- NOTE | 2024-02-06 10:20 | CM ---
Met with patient to ask about [facility] rehab choices. She said she spoke to attending and wants referral to [facility] .
Referral will be sent today if she has PT and OT today. IF not will ask CM on Thursday to send referral.
--- NOTE | 2024-02-06 11:05 | W.PN.NEURO.1 ---
Today's Communication / Plan
-
Due to the unclear nature of the patient's weakness and lack of clarity regarding the splenium of the corpus callosum lesion, initiate methylprednisolone 1 g IV daily x [address] chest abdomen and pelvis to evaluate for possible carcinomatous etiology
Neuro Assessment/Plan
Assessment
EMG negative ruling out GBS.
MRI brain 02/04/2024
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 This was reread by another radiologist who suggested that there might be cytotoxic edema
MRI c-spine 02/04/2024
Multilevel degenerative changes of the cervical spine as detailed, worst at C5-6 where disc and uncovertebral/facet disease contribute to mild spinal canal neural foraminal stenosis at this level.
Limited exam from patient motion artifact; however, no convincing MR evidence for spinal cord abnormality/transverse myelitis.
MRI-T-spine/MRI L-spine 02/04/2024
Chronic mild degenerative changes of the thoracic spine and lumbar spine. No MRI evidence for cord signal alteration. No evidence for significant spinal canal stenosis or neuroforaminal stenosis.
Need CTA head and Neck normal
Echocardiogram is unremarkable
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 Subsequently, after MRI findings there was a suggestion of acute infarct involving the
splenium of the corpus callosum producing symptoms. As the reading of the MRI has been questioned, differential now includes possible paraneoplastic syndrome of unclear etiology
Plan
Due to the unclear nature of the patient's weakness and lack of clarity regarding the splenium of the corpus callosum lesion, initiate methylprednisolone 1 g IV daily x [address] chest abdomen and pelvis to evaluate for possible carcinomatous etiology
Initiated and continue ASA 81 mg daily
Initiated atorvastatin 20 mg, low-dose due to relative elevation of LFTs
Initiated then stopped immunoglobulin
Completed thiamine 100 mg daily
continue B12 supplement
continue pregabalin due to potentially better control over sensation discomfort by using a medication without 0 order kinetic
continue Rehabilitation evaluations
Await additional labs for possible etiology of stroke as cause unclear at this time
All questions answered.
Will continue to follow patient.
CSF Glucose 80 mg/dl H 02/03/24 16:20 Lab
CSF Total Protein 72 mg/dl H 02/03/24 16:20 Lab
CSF Appearance Clear 02/03/24 16:20 Lab
CSF Color Colorless 02/03/24 16:20 Lab
CSF WBC 1 mm^3 02/03/24 16:20 Lab
CSF RBC 134 mm^3 02/03/24 16:20 Lab
CSF Cell Count Tube # 4 02/03/24 16:20 Lab
Total Protein 7.5 g/dl 02/04/24 07:02 Lab
Triglycerides 271 mg/dl H 02/04/24 07:02 Lab
TSH (Reflex) 0.68 uIU/ml 02/04/24 07:02 Lab
PTH Intact 13.8 pg/ml 02/04/24 07:02 Lab
Subjective/Objective
Subjective Data
Date of Service: February 06, 2024
Pain in knuckles and fingers. No real change to LE strength.
Objective Data
Vital Signs
Temp Pulse Resp BP Pulse Ox
36.6 C 105 16 113/77 95
02/06/24 08:53 02/06/24 08:53 02/06/24 08:53 02/06/24 08:53 02/06/24 08:53
Lab Results
02/06/24 06:38
02/06/24 06:38
PT 13.9 Sec (11.4-14.6) 02/04/24 07:02
INR 1.02 02/04/24 07:02
APTT 37.2 Sec (23.4-35.0) H 02/04/24 07:02
Sodium 140 mmol/L (135-145) 02/06/24 06:38
Potassium 4.2 mmol/L (3.5-5.1) 02/06/24 06:38
BUN 21 mg/dl (7-17) H 02/06/24 06:38
Glucose 88 mg/dl (70-99) 02/06/24 06:38
Calcium 9.6 mg/dl (8.4-10.2) 02/06/24 06:38
LDL Cholesterol, Calc 143 mg/dl 02/04/24 07:02
Vitamin B12 740 pg/ml (239-931) 02/04/24 07:02
Patient Allergies
adhesive Allergy (Verified 02/03/24 10:47)
Rash
Review of Systems
-
History Source: Patient
All other systems: Reviewed and negative
Genitourinary: Negative Incontinence
Musculoskeletal: Myalgias and Muscle Weakness
Neuro: Weakness and Numbness; Negative Dizzy or Headache
Physical Exam
-
General: No Apparent Distress and Appears Stated Age
Eyes: Round OU, [place] Conjunctivae and No Ptosis
HEENT: Anicteric and Moist Mucous Membranes
Neck: Full Range of Motion
Respiratory: No Dyspnea
Cardiac: No JVD
GI: Non-distended
Skin: Unremarkable
Extremities: No Clubbing, No Cyanosis and No Edema
Psych: Intact Judgement/Insight
Extended Neurological Exam
Mood & Affect: Mood Unremarkable and Affect Unremarkable
Attention Span & Concentration: Awake, Alert and Interactive
Memory: Unremarkable
Tremor: Hand Tremor Absent and Head Tremor Absent
Speech: Quality Unremarkable and Quantity Unremarkable
Cranial Nerve II: Left Eye: Pupillary Size Unremarkable and Visual Sorensen Grossly Intact
Cranial Nerve II: Right Eye: Pupillary Size Unremarkable and Visual Sorensen Grossly Intact
Cranial Nerves III, IV, : Extraocular Movement: Grossly Intact
Cranial Nerve VII: Facial Symmetry: Normal Facial Symmetry
Cranial Nerve VIII: Hearing: Unremarkable Hearing to Normal Conversational Volume
Cranial Nerve XI: Shoulder Shrug: Unremarkable
Muscle Strength, Overall: Reduced (5- out of 5 right deltoid; 4+ out of 5 right leg proximally, 5- out of 5 left leg proximally; distal strength full and lower extremities)
Muscle Bulk & Tone: Bulk Unremarkable and Tone Unremarkable
Touch Sensation: Unremarkable
Coordination: Reaches for Objects without Difficulty
Gait & Station: Unable to Assess
Data Reviewed
-
Labs: Pending and Report Reviewed
Reviewed with: Physician and Patient
Old Records: Summarized
[2024-02-06 11:40] LABS: ALT (SGPT) 40 U/L (0-35); AST (SGOT) 55 U/L (14-36); Albumin 3.5 g/dl (3.5-5.0); Alkaline Phosphatase 85 U/L (38-126); Direct Bilirubin 0.2 mg/dl (0.0-0.4); Total Bilirubin 0.4 mg/dl (0.2-1.3); Total Protein 6.8 g/dl (6.3-8.2)
[2024-02-06 12:20] LABS: Creatine Phosphokinase 28 U/L (30-135)
[2024-02-06] MEDS: SOLU-MEDROL 258 MG IV (13:09)
[2024-02-06] MEDS: FLUSH (NSS) 2 FLUSH IV (13:11)
--- NOTE | 2024-02-06 13:23 | W.PN.HOSP.TC ---
Today's Communication/Plan
-
Assessment / Plan
Assessment / Plan
Physical Exam
NAD, resting comfortably in bed
Scleral anicteric
Moist mucous membranes
No JVD
CTA bilateral
Normal S1-S2 CARMEN at RUSB /
Soft nontender nondistended bowel sounds active
No peripheral pitting edema
Moves extremities spontaneously
AAO x0
acute/subacute cva
-ascending paraesthesias b/l along with ambulagtory dysfunction after vaccine admin at the beginning of November
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
-s/p LP in the ED, follow up cx and cyto
-sensation and proprioception intact, muscle b/l equal 4/5
-mri spine without acute findings
-emg without evidence of AIDP, therefore, no longer believe to be gbs, stop ivig
-mri brain shows nonhemorrhagic acute/subacute infarct involving the splenium of the corpus callosum.
-check autoimmune sero and vasculitis serologies which have been prdered
-neuro following
--neuro order asa and statin (mod dosing due to lft's)
--pt/ot/physiatry consulted
?paraneoplastic, neuro concerned
-start iv steroids
UA dirty, >30 ep's on UA and no cystitis symptoms
-unlikely cystitis on pyelo josué as no evidence of perinephric stranding on ct
macrocytosis
-likely related to alochol use
transaminitis
-likley related to fatty liver
-ruqus as expected
alcohol use disorder
-though has not had a drink in 4 weeks
-thiamine
-folate
hep A +
-supportive care for now
-outpatient follow up with GI
pt rec ARU
Anticipated Discharge: 24 - 48 hours
Subjective/Interval History
-
Date of Service: February 06, 2024
seen and exmained. no new compalitns. no acute ovenright events
Objective Data
-
Labs:
Laboratory Results
02/06/24 02/06/24
06:38 11:07
WBC 6.0
Hgb 11.8 L
Hct 33.9 L
Plt Count 289
Sodium 140
Potassium 4.2
Chloride 101
Carbon Dioxide 32 H
BUN 21 H
Creatinine 1.0
Glucose 88
Calcium 9.6
Total Bilirubin 0.4 Cancelled
AST 55 H Cancelled
ALT 40 H Cancelled
Alkaline Phosphatase 85 Cancelled
Vital Signs:
Vital Signs
Temp Pulse Resp BP Pulse Ox
98.6 F 87 16 108/78 98
02/06/24 11:30 02/06/24 11:30 02/06/24 11:30 02/06/24 11:30 02/06/24 11:30
I&O
02/05/24 02/06/24 02/07/24
06:59 06:59 06:59
Intake Total 720 / 720 480 / 480
Balance 720 / 720 480 / 480
[2024-02-06] MEDS: LOVENOX 40 MG SC (18:03)
[2024-02-06] MEDS: LIPITOR 20 MG PO (18:03)
[2024-02-06] MEDS: MELATONIN 10 MG PO (21:37)
[2024-02-07] VITALS (7 sets, daily range): BP systolic 110–130; BP diastolic 74–88; PULSE 92
[2024-02-07] MEDS: TYLENOL PO ×2 (01:14→05:08)
[2024-02-07 02:04] LABS: Beta-2-Glycoprotein I Ab. IgA <10 SAU (<=20); Beta-2-Glycoprotein I Ab. IgG <10 SGU (<=20); Beta-2-Glycoprotein I Ab. IgM 11 SMU (<=20)
[2024-02-07] MEDS: VITAMIN B-12 1000 MCG PO (07:37)
[2024-02-07] MEDS: LOW STRENGTH ASPIRIN 81 MG PO (07:37)
[2024-02-07] MEDS: PLAVIX 75 MG PO (07:37)
[2024-02-07] MEDS: VITAMIN C 250 MG PO (07:37)
[2024-02-07] MEDS: MAG-TAB SR 84 MG PO (07:37)
[2024-02-07] MEDS: LYRICA 100 MG PO (07:37)
[2024-02-07] MEDS: TYLENOL 650 MG PO ×4 (07:37→20:20)
[2024-02-07 08:33] LABS: Cardiolipin IgA Antibody <10 APL (<=11); Cardiolipin IgM Antibody 13 MPL (<=12); Cardiolipin Igg Antibody <10 GPL (<=14)
[2024-02-07] MEDS: INDERAL 20 MG PO (09:02)
[2024-02-07] MEDS: NORVASC 10 MG PO (09:03)
--- NOTE | 2024-02-07 09:23 | W.PN.NEURO.1 ---
Today's Communication / Plan
-
Due to the unclear nature of the patient's weakness and lack of clarity regarding the splenium of the corpus callosum lesion, initiate methylprednisolone 1 g IV daily x 3 days started 02/06/2024
Initiated then stopped immunoglobulin, would restart 4 doses if continued worsening despite all testing negative for AIDP/GBS
Initiated and continue ASA 81 mg daily
Initiated atorvastatin 20 mg, low-dose due to relative elevation of LFTs
Completed thiamine 100 mg daily, restarting
Increase pregabalin from 100 mg to 150 mg TID due to potentially better control over sensation discomfort
Neuro Assessment/Plan
Assessment
EMG negative ruling out GBS.
MRI brain 02/04/2024
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 This was reread by another radiologist who suggested that there might be cytotoxic edema
MRI c-spine 02/04/2024
Multilevel degenerative changes of the cervical spine as detailed, worst at C5-6 where disc and uncovertebral/facet disease contribute to mild spinal canal neural foraminal stenosis at this level.
Limited exam from patient motion artifact; however, no convincing MR evidence for spinal cord abnormality/transverse myelitis.
MRI-T-spine/MRI L-spine 02/04/2024
Chronic mild degenerative changes of the thoracic spine and lumbar spine. No MRI evidence for cord signal alteration. No evidence for significant spinal canal stenosis or neuroforaminal stenosis.
CTA head and Neck normal
Echocardiogram is unremarkable
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 Subsequently, after MRI findings there was a suggestion of acute infarct involving the
splenium of the corpus callosum producing symptoms.
As the reading of the MRI has been questioned, differential now includes possible paraneoplastic syndrome of unclear etiology since EMG is normal
Plan
Due to the unclear nature of the patient's weakness and lack of clarity regarding the splenium of the corpus callosum lesion, initiate methylprednisolone 1 g IV daily x 3 days started 02/06/2024
Initiated then stopped immunoglobulin, would restart 4 doses if continued worsening despite all testing negative for AIDP/GBS
Initiated and continue ASA 81 mg daily
Initiated atorvastatin 20 mg, low-dose due to relative elevation of LFTs
Completed thiamine 100 mg daily, restarting
continue B12 supplement
Increase pregabalin from 100 mg to 150 mg TID due to potentially better control over sensation discomfort
continue Rehabilitation evaluations
Await additional labs for possible etiology of stroke as cause unclear at this time
All questions answered.
Will continue to follow patient.
CSF Glucose 80 mg/dl H 02/03/24 16:20 Lab
CSF Total Protein 72 mg/dl H 02/03/24 16:20 Lab
CSF Appearance Clear 02/03/24 16:20 Lab
CSF Color Colorless 02/03/24 16:20 Lab
CSF WBC 1 mm^3 02/03/24 16:20 Lab
CSF RBC 134 mm^3 02/03/24 16:20 Lab
CSF Cell Count Tube # 4 02/03/24 16:20 Lab
Total Protein 7.5 g/dl 02/04/24 07:02 Lab
Triglycerides 271 mg/dl H 02/04/24 07:02 Lab
TSH (Reflex) 0.68 uIU/ml 02/04/24 07:02 Lab
PTH Intact 13.8 pg/ml 02/04/24 07:02 Lab
Subjective/Objective
Subjective Data
Date of Service: February 07, 2024
Worse sleep at night due to pain. Difficuklty with self-care to back of head 2 months prior to presentation
Objective Data
Vital Signs
Temp Pulse Resp BP Pulse Ox
37.0 C 109 14 130/88 97
02/07/24 07:55 02/07/24 09:02 02/07/24 07:55 02/07/24 09:02 02/07/24 07:55
Lab Results
02/06/24 06:38
02/06/24 06:38
PT 13.9 Sec (11.4-14.6) 02/04/24 07:02
INR 1.02 02/04/24 07:02
APTT 37.2 Sec (23.4-35.0) H 02/04/24 07:02
Sodium 140 mmol/L (135-145) 02/06/24 06:38
Potassium 4.2 mmol/L (3.5-5.1) 02/06/24 06:38
BUN 21 mg/dl (7-17) H 02/06/24 06:38
Glucose 88 mg/dl (70-99) 02/06/24 06:38
Calcium 9.6 mg/dl (8.4-10.2) 02/06/24 06:38
LDL Cholesterol, Calc 143 mg/dl 02/04/24 07:02
Vitamin B12 740 pg/ml (239-931) 02/04/24 07:02
Patient Allergies
adhesive Allergy (Verified 02/03/24 10:47)
Rash
Review of Systems
-
History Source: Patient
All other systems: Reviewed and negative
EENT: Blurry Vision; Negative Swallowing Difficulty
Genitourinary: Negative Incontinence
Musculoskeletal: Myalgias and Muscle Weakness; Negative Back Pain or Neck Pain
Neuro: Weakness and Numbness; Negative Dizzy or Headache
Physical Exam
-
General: No Apparent Distress and Appears Stated Age
Eyes: Round OU, [place] Conjunctivae and No Ptosis
HEENT: Anicteric and Moist Mucous Membranes
Neck: Full Range of Motion
Respiratory: No Dyspnea
Cardiac: No JVD
GI: Non-distended
Skin: Unremarkable
Extremities: No Clubbing, No Cyanosis and No Edema
Psych: Intact Judgement/Insight
Extended Neurological Exam
Mood & Affect: Mood Unremarkable and Affect Unremarkable
Attention Span & Concentration: Awake, Alert and Interactive
Memory: Unremarkable
Tremor: Hand Tremor Absent and Head Tremor Absent
Speech: Quality Unremarkable and Quantity Unremarkable
Cranial Nerve II: Left Eye: Pupillary Size Unremarkable and Visual Sorensen Grossly Intact
Cranial Nerve II: Right Eye: Pupillary Size Unremarkable and Visual Sorensen Grossly Intact
Cranial Nerves III, IV, : Extraocular Movement: Grossly Intact
Cranial Nerve VII: Facial Symmetry: Normal Facial Symmetry
Cranial Nerve VIII: Hearing: Unremarkable Hearing to Normal Conversational Volume
Cranial Nerve XI: Shoulder Shrug: Unremarkable
Muscle Strength, Overall: Reduced (5- out of 5 right deltoid; 4+ out of 5 right leg proximally, 5- out of 5 left leg proximally; distal strength full and lower extremities)
Muscle Bulk & Tone: Bulk Unremarkable and Tone Unremarkable
Touch Sensation: Unremarkable
Coordination: Reaches for Objects without Difficulty
Gait & Station: Unable to Assess
Data Reviewed
-
Labs: Report Reviewed
Reviewed with: Physician and Patient
Old Records: Summarized
Past History
Past History
ED Past Medical History: Negative CAD, IDDM or NIDDM
Social History
Tobacco: Non-smoker
Alcohol: Occasional
Drug: None
Personal:
Living: with family
Employment: Employed
Family History
Family History: Other (No urologic issues)
Medications
-
Medications:
Generic Name Dose Route Start Last Admin
Trade Name Freq PRN Reason Stop Dose Admin
Acetaminophen 650 mg 02/03/24 20:00 02/07/24 07:37
Acetaminophen 325 Mg Tablet PO 03/02/24 19:59 650 mg
Q4HWA NAVIN Administration
Amlodipine Besylate 10 mg 02/04/24 08:00 02/07/24 09:03
Amlodipine 10 Mg Tablet PO 03/03/24 07:59 10 mg
DAILY NAVIN Administration
Ascorbic Acid 250 mg 02/04/24 08:00 02/07/24 07:37
Ascorbic Acid 250 Mg Tablet PO 03/03/24 07:59 250 mg
DAILY NAVIN Administration
Aspirin 81 mg 02/05/24 10:00 02/07/24 07:37
Aspirin 81 Mg Chewable Tablet PO 03/04/24 09:59 81 mg
DAILY NAVIN Administration
Atorvastatin Calcium 20 mg 02/05/24 18:00 02/06/24 18:03
Atorvastatin (Lipitor) 20 Mg Tablet PO 03/04/24 17:59 20 mg
QPM NAVIN Administration
Clopidogrel Bisulfate 75 mg 02/05/24 14:00 02/07/24 07:37
Clopidogrel 75 Mg Tablet PO 03/04/24 13:59 75 mg
DAILY NAVIN Administration
Cyanocobalamin 1,000 mcg 02/04/24 08:00 02/07/24 07:37
Cyanocobalamin 1,000 Mcg Tablet PO 03/03/24 07:59 1,000 mcg
DAILY NAVIN Administration
Enoxaparin Sodium 40 mg 02/03/24 18:00 02/06/24 18:03
Enoxaparin Sodium 40 Mg/0.4 Ml Syringe SC 03/02/24 17:59 40 mg
QPM NAVIN Administration
Famotidine 20 mg 02/03/24 19:56
Famotidine 20 Mg Tablet PO 03/02/24 19:55
DAILYPRN PRN
heartburn
Methylprednisolone Sodium 258 mls @ 258 mls/hr 02/06/24 12:00 02/06/24 13:09
Succinate 1,000 mg/ Sodium IV 02/08/24 12:59 258 mls
Chloride Q24H NAVIN Administration
Magnesium 84 mg 02/04/24 08:00 02/07/24 07:37
Magnesium Lactate 84 Mg Tablet PO 03/03/24 07:59 84 mg
DAILY ANVIN Administration
Melatonin 10 mg 02/06/24 22:00 02/06/24 21:37
Melatonin 5 Mg Tablet PO 03/05/24 21:59 10 mg
HS NAVIN Administration
Polyethylene Glycol 17 grams 02/03/24 16:51 02/05/24 09:15
Polyethylene Glycol Powder 17 Grams Packet PO 03/02/24 16:50 17 grams
DAILYPRN PRN Administration
constipation
Pregabalin 100 mg 02/05/24 09:00 02/07/24 07:37
Pregabalin 100 Mg Capsule PO 03/04/24 08:59 100 mg
TID NAVIN Administration
Propranolol HCl 20 mg 02/04/24 08:00 02/07/24 09:02
Propranolol 20 Mg Regular Release Tablet PO 03/03/24 07:59 20 mg
DAILY NAVIN Administration
Senna/Docusate Sodium 1 tablet 02/03/24 16:51 02/06/24 10:14
Docusate W/Senna (Kathie-Colace) Tablet PO 03/02/24 16:50 1 tablet
BIDPRN PRN Administration
constipation
Sodium Chloride 0 flush 02/03/24 19:00 02/06/24 13:11
Sodium Chloride 0.9% (Flush) Syringe IV 03/02/24 18:59 2 flush
PER PROTOCOL NAVIN Administration
[2024-02-07] MEDS: VITAMIN B1 100 MG PO (11:01)
[2024-02-07] MEDS: SOLU-MEDROL 258 MG IV (11:48)
[2024-02-07 12:34] LABS: Myeloperoxidase Antibody 0 AU/mL (0-19); Serine Protease-3, IgG 1 AU/mL (0-19)
--- NOTE | 2024-02-07 13:40 | W.PN.HOSP.TC ---
Today's Communication/Plan
-
Assessment / Plan
Assessment / Plan
Physical Exam
NAD, resting comfortably in bed
Scleral anicteric
Moist mucous membranes
No JVD
CTA bilateral
Normal S1-S2
Soft nontender nondistended bowel sounds active
No peripheral pitting edema
Moves extremities spontaneously, 4/5 LLE weakness compared to the right. Weaker LUE weakness then RUE
AAO x0
acute/subacute cva
-ascending paraesthesias b/l along with ambulagtory dysfunction after vaccine admin at the beginning of November
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
-s/p LP in the ED, follow up cx and cyto
-sensation and proprioception intact, muscle b/l equal 4/5
-mri spine without acute findings
-emg without evidence of AIDP, therefore, no longer believe to be gbs, stop ivig
-mri brain shows nonhemorrhagic acute/subacute infarct involving the splenium of the corpus callosum.
-check autoimmune sero and vasculitis serologies which have been prdered
-neuro following
--neuro order asa and statin (mod dosing due to lft's)
--pt/ot/physiatry consulted
?paraneoplastic, neuro concerned
-started iv steroids
UA dirty, >30 ep's on UA and no cystitis symptoms
-unlikely cystitis on pyelo josué as no evidence of perinephric stranding on ct
macrocytosis
-likely related to alochol use
transaminitis
-likley related to fatty liver
-ruqus as expected
alcohol use disorder
-though has not had a drink in 4 weeks
-thiamine
-folate
hep A +
-supportive care for now
-outpatient follow up with GI
pt rec ARU
Anticipated Discharge: 24 - 48 hours
Subjective/Interval History
-
Date of Service: February 07, 2024
seen and exmained
worsenign lower extremity pain.
Objective Data
-
Vital Signs:
Vital Signs
Temp Pulse Resp BP Pulse Ox
97.5 F 99 20 129/74 96
02/07/24 11:00 02/07/24 11:00 02/07/24 11:00 02/07/24 11:00 02/07/24 11:00
I&O
02/06/24 02/07/24 02/08/24
06:59 06:59 06:59
Intake Total 480 / 480 1090 / 1090
Output Total 250 / 250
Balance 480 / 480 840 / 840
[2024-02-07 14:17] LABS: Protein S Total Antigen 138 % (63-126)
[2024-02-07 14:28] LABS: Albumin 3.46 g/dL (3.75-5.01); Alpha 2 Globulin 0.75 g/dL (0.48-1.05); Free Kappa Light Chains,Quant 44.24 mg/L (3.30-19.40); Free Lambda Light Chains,Quant 27.69 mg/L (5.71-26.30); IgA 297 mg/dL (68-408); IgG 990 mg/dL (768-1632); IgM 95 mg/dL (35-263); Immunofixation Electrophoresis IFE Done; Total Protein-Electrophoresis 6.4 g/dL (6.3-8.2)
[2024-02-07] MEDS: LYRICA 150 MG PO ×2 (15:22→22:28)
[2024-02-07] MEDS: LOVENOX 40 MG SC (17:01)
[2024-02-07] MEDS: PEPCID 20 MG PO (17:01)
[2024-02-07] MEDS: LIPITOR 20 MG PO (17:01)
[2024-02-07 17:51] LABS: Protein C, Total Antigen >95 % (63-153)
[2024-02-07 19:07] LABS: Anti-Thrombin III Activity 92 % (76-128)
[2024-02-07] MEDS: MELATONIN 10 MG PO (22:27)
[2024-02-07] MEDS: SENOKOT-S 1 TABLET PO (22:28)
[2024-02-08] VITALS (8 sets, daily range): BP systolic 99–134; BP diastolic 66–101; PULSE 85; O2SAT 97
[2024-02-08] MEDS: TYLENOL PO ×2 (04:00)
[2024-02-08] MEDS: PLAVIX 75 MG PO (08:17)
[2024-02-08] MEDS: NORVASC 10 MG PO (08:17)
[2024-02-08] MEDS: VITAMIN B-12 1000 MCG PO (08:17)
[2024-02-08] MEDS: VITAMIN C 250 MG PO (08:17)
[2024-02-08] MEDS: VITAMIN B1 100 MG PO (08:17)
[2024-02-08] MEDS: INDERAL 20 MG PO (08:17)
[2024-02-08] MEDS: MAG-TAB SR 84 MG PO (08:17)
[2024-02-08] MEDS: LOW STRENGTH ASPIRIN 81 MG PO (08:18)
[2024-02-08] MEDS: TYLENOL 650 MG PO ×4 (08:18→20:43)
[2024-02-08] MEDS: LYRICA 150 MG PO ×3 (08:18→22:22)
[2024-02-08] MEDS: MIRALAX 17 GRAMS PO (08:25)
--- NOTE | 2024-02-08 09:00 | CON.MD ---
Documented by User: Kimberlee Hylton PA-C 02/08/24 16:28
Consultation - Medical
-
Referring Provider:
Chief Complaint: Bilateral leg weakness
History of Present Illness: Patient is a 53-year-old female with PMH of( Graves' disease, anxiety, depression, insomnia, hypertension, hayfever, thyroid disease, headache, and alcohol use who has presented to the hospital with Bilateral lower
extremity weakness on 02/03/2024. Patient reports symptoms started about 4 weeks ago. She started to notice numbness and weakness starting in her feet and her toes which gradually got worse. She reports over the past 3 to 4 days weakness
significantly increased and yesterday was unable to get up off the couch. Weakness now goes as high as her upper thighs. She is having associated discomfort. She reports that occasionally she has shooting pain in her feet that radiates upward
towards her thighs. Hear legs feel heavy. She has no truncal weakness.She also has noted some numbness and tingling in her fingers. She does not notice any weakness of her upper extremities but has difficulty feeling things. Initially given ivig
then stopped since EMG negative ruling out GBS. Imaging of spine- all negative as cause, CTA of head and Neck-negative.
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 Subsequently, after MRI findings there was a suggestion of acute infarct involving the
splenium of the corpus callosum producing symptoms. As the reading of the MRI has been questioned, differential now includes possible paraneoplastic syndrome of unclear etiology since EMG is normal. Consider CT chest abdomen and pelvis to evaluate
for possible carcinomatous etiology.
Blood cultures, U/A culture- negative
EMG negative ruling out GBS.
MRI brain 02/04/2024
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 This was reread by another radiologist who suggested that there might be cytotoxic edema
MRI c-spine 02/04/2024
Multilevel degenerative changes of the cervical spine as detailed, worst at C5-6 where disc and uncovertebral/facet disease contribute to mild spinal canal neural foraminal stenosis at this level.
Limited exam from patient motion artifact; however, no convincing MR evidence for spinal cord abnormality/transverse myelitis.
MRI-T-spine/MRI L-spine 02/04/2024
Chronic mild degenerative changes of the thoracic spine and lumbar spine. No MRI evidence for cord signal alteration. No evidence for significant spinal canal stenosis or neuroforaminal stenosis.
CTA head and Neck:normal
Echocardiogram : unremarkable
Abdomen U/S: Hepatic fatty infiltration. Stable. Trace gallbladder sludge. New. No secondary findings to suggest acute cholecystitis
Past Medical History: Graves' disease, anxiety, depression, insomnia, hypertension, hayfever, thyroid disease, headache, GERD, renal failure, UTIs and alcohol
Procedure History: Right breast biopsy, [facility] eye surgery x2
Family History: father-heart disease
Social History:
Functional Level Premorbidly: Independent with all activities
Functional Level at Previous Facility: bed mobility-supervision, transfer-min assist ambulation 25 + 50 feet x 1 with RW- min a, upper extremity care�min assist, lower extremity self-care�supervison, grooming-min assist, toileting-mod assist,
Tobacco: Denies
Alcohol:Former (Drink 3 drinks a day for the past 10 years, recently quit 1 month ago)
Drug use: Denies
Lives With: alone
24-hour assistance available:
Number of floors: multi level
# steps to enter: 3
# steps to second floor:
Potential First Floor Set Up:
Driving: yes
Occupation: student support advisor
Allergies:
Allergy/AdvReac Type Severity Reaction Status Date / Time
adhesive Allergy Rash Verified 02/03/24 10:47
Review of Systems:
Constitutional: (x) Normal _
Eye: (x) Normal _
Ear/Nose/Throat: (x) Normal _
Respiratory: (x) Normal _
Cardiovascular: (x)
Gastrointestinal: (x)
Genitourinary: (x) Normal _
Musculoskeletal: (x) legs weakness
Integumentary: (x) Normal _
Neurologic: (x) paresthesia-feet, finger tips, cva
Psychiatric: (x) Normal _
Endocrine: (x) DM
Hematologic/Lymphatic: (x)
Allergic/Immunologic: (x)
Medications:
Active Current Visit Medication List
Category Date Time Status
Acetaminophen [Tylenol] Med 02/03/24 20:00 Active
650 mg PO Q4HWA
Amlodipine [Norvasc] Med 02/04/24 08:00 Active
10 mg PO DAILY
Ascorbic Acid [Vitamin C] Med 02/04/24 08:00 Active
250 mg PO DAILY
Aspirin Chewable [Low Strength Aspirin] Med 02/05/24 10:00 Active
81 mg PO DAILY
Atorvastatin [Lipitor] Med 02/05/24 18:00 Active
20 mg PO QPM
Clopidogrel Bisulfate [Plavix] Med 02/05/24 14:00 Active
75 mg PO DAILY
Cyanocobalamin [Vitamin B-12] Med 02/04/24 08:00 Active
1,000 mcg PO DAILY
Docusate W/Senna [Senokot-S] Med 02/03/24 16:51 Active
1 tablet PO BIDPRN PRN
Enoxaparin Sodium [Lovenox] Med 02/03/24 18:00 Active
40 mg SC QPM
Famotidine [Pepcid] Med 02/03/24 19:56 Active
20 mg PO DAILYPRN PRN
Flush (0.9% Sodium Chloride) [Flush (Nss)] Med 02/03/24 19:00 Active
See Dose Instructions IV PER PROTOCOL
Magnesium l-Lactate [Mag-Tab Sr] Med 02/04/24 08:00 Active
84 mg PO DAILY
Melatonin Med 02/06/24 22:00 Active
10 mg PO HS
MethylPREDNISolone. [Solu-Medrol] 1,000 mg Med 02/06/24 12:00 Active
0.9% Sodium Chloride 250 ml [Nss] 250 ml
IV Q24H
Polyethylene Glycol Powder [Miralax] Med 02/03/24 16:51 Active
17 grams PO DAILYPRN PRN
Pregabalin [Lyrica] Med 02/07/24 16:00 Active
150 mg PO TID
Propranolol [Inderal] Med 02/04/24 08:00 Active
20 mg PO DAILY
Thiamine HCl [Vitamin B1] Med 02/07/24 11:00 Active
100 mg PO DAILY
Vitals:
Temp Pulse Resp BP Pulse Ox
98.0 F 101 16 111/68 95
02/08/24 03:10 02/08/24 03:10 02/08/24 03:10 02/08/24 03:10 02/08/24 03:10
Height 5 ft 3 in
Actual Weight 64.949 kg
Body Mass Index (BMI) 25.4
Physical Exam:
General Appearance/Observation: Well-developed, well-nourished individual in no apparent distress.
Pain/Comfort Assessment:
Mood/Affect: Appropriate
Integumentary/Operative Site:
Pressure Ulcer evaluation: absent over heels
Other Type of Wound: absent
Eyes: Conjunctiva/Lids: normal Pupils: pupils equal round and reactive to light and Accommodation
Ears/Nose/Throat: oral mucosa moist, throat clear. Lips/Teeth/Gums: normal
Neck: No muscle spasm or tenderness
Cardiovascular: Heart: regular, murmur
Pulses: dorsalis pedis 2+ bilaterally
Respiratory: Respiratory Effort/Chest Expansion: normal. Auscultation: Clear to auscultation bilaterally
Gastrointestinal: abdomen not tender, no distension, normal abdominal bowel sounds
Genitourinary: No Lau
Extremities: Edema:none Cyanosis: None Trophic changes: None
Neurology Exam:
Orientation: Alert, Oriented to self, Time, Place
Memory: Intact for immediate medical concerns
Comprehension: Intact
Two step command: Intact
Naming: Intact
Cranial Nerves:
CNII: Pupillary light reflex: Intact Visual Field: intact
CN III, IV, : Extraocular muscles: Intact
CN V: Facial Sensation at Forehead: Intact , Maxilla: Intact, Mandible: Intact
CN VII: Facial movement: Symmetric
CN VIII: Hearing: Normal
CN IX/X: Speech & swallow: Normal Position of Uvula: Midline
CN XI: Shoulder shrug: Symmetric
CN XII: Tongue protrusion: Midline
Sensory:
Light touch: dysesthesia in bilateral upper > lower extremities. hyperalgesia to pressure by touch-feet
Reflexes:
Biceps: 1+ bilaterally
Brachioradialis: 1+ bilaterally
Triceps: 1+ bilaterally
Patellar: 1/4 bilaterally
Achilles: 1+ bilaterally
Babinski: Downgoing bilaterally
Clonus: right?
Usama: Negative bilaterally
Cerebellar: Dysmetria/Ataxia: None
Musculoskeletal:
Motor: (Manual muscle scale 0-5)
Muscle
Muscle SA EF WE EE FF FA HF KE DF EHL PF
Right� 5 5 5 5 4 4 4+ 4+ 4+
Left 5 5 5 5 4 4 4+ 4+ 4+
�
Tone: Normal in all extremities
Range of Motion: Passively within normal limits in all extremities
Lab Results:
Labs
WBC 6.0 10^3/uL (4.8-10.8) 02/06/24 06:38
RBC 3.11 10^6/uL (4.20-5.40) L 02/06/24 06:38
Hgb 11.8 g/dL (12.0-16.0) L 02/06/24 06:38
Hct 33.9 % (37.0-47.0) L 02/06/24 06:38
MCV 109.0 fL (81.0-99.0) H 02/06/24 06:38
MCH 37.9 pg (27.0-31.0) H 02/06/24 06:38
MCHC 34.8 g/dL (33.0-37.0) 12 06:38
RDW 12.4 % (11.5-14.5) 02/06/24 06:38
Plt Count 289 10^3/uL (130-400) 02/06/24 06:38
MPV 11.1 fL (7.4-10.4) H 02/06/24 06:38
Abs Immat Gran (auto) 0.1 10^3/uL (0-0.05) H 02/06/24 06:38
Absolute Neuts (auto) 2.8 10^3/uL (1.4-6.5) 02/06/24 06:38
Absolute Lymphs (auto) 2.1 10^3/uL (1.2-3.4) 02/06/24 06:38
Absolute Monos (auto) 0.7 10^3/uL (0.1-0.6) H 02/06/24 06:38
Absolute Eos (auto) 0.2 10^3/uL (0-0.7) 02/06/24 06:38
Absolute Basos (auto) 0.1 10^3/uL (0-0.2) 02/06/24 06:38
Immature Gran % 1.3 % (0-0.5) H 02/06/24 06:38
Neutrophils % 47.2 % (42.2-75.2) 12 06:38
Lymphocytes % 34.9 % (20.5-51.1) 12 06:38
Monocytes % 12.2 % (1.7-9.3) H 02/06/24 06:38
Eosinophils % 3.2 % (0-6) 12/24 06:38
Basophils % 1.2 % (0-2) 02/06/24 06:38
Nucleated RBC % 0 % 02/06/24 06:38
ESR 34 mm/hour (0-20) H 02/04/24 07:02
PT 13.9 Sec (11.4-14.6) 02/04/24 07:02
INR 1.02 02/04/24 07:02
APTT 37.2 Sec (23.4-35.0) H 02/04/24 07:02
Protein C >95 % (63-153) 02/05/24 10:41
Protein S Antigen 138 % (63-126) H 02/05/24 10:41
Antithrombin III Activ 92 % (76-128) 02/05/24 10:41
Sodium 140 mmol/L (135-145) 02/06/24 06:38
Potassium 4.2 mmol/L (3.5-5.1) 02/06/24 06:38
Chloride 101 mmol/L (98-107) 02/06/24 06:38
Carbon Dioxide 32 mmol/L (22-30) H 02/06/24 06:38
BUN 21 mg/dl (7-17) H 02/06/24 06:38
Creatinine 1.0 mg/dL (0.6-1.0) 02/06/24 06:38
Estimated Creat Clear 54 ml/min 02/06/24 06:38
eGFR > 60.00 02/06/24 06:38
Glucose 88 mg/dl (70-99) 02/06/24 06:38
Hemoglobin A1c 5.1 % (4.0-5.6) 02/04/24 07:02
Serum Osmolality 281 mOsm/kg (275-300) 02/04/24 07:02
Lactic Acid 2.1 mmol/L (0.7-2.0) H 02/03/24 16:20
Calcium 9.6 mg/dl (8.4-10.2) 02/06/24 06:38
Ionized Calcium 1.23 mMOL/L (1.15-1.33) 02/04/24 07:02
Magnesium 1.6 mg/dl (1.6-2.3) 02/04/24 07:02
Ferritin 1290.0 ng/ml (11.1-264.0) H 02/04/24 07:02
Total Bilirubin Cancelled 02/06/24 11:07
Direct Bilirubin Cancelled 02/06/24 11:07
AST Cancelled 02/06/24 11:07
ALT Cancelled 02/06/24 11:07
Alkaline Phosphatase Cancelled 02/06/24 11:07
Creatine Kinase 28 U/L (30-135) L 02/06/24 06:38
C-Reactive Protein 80.60 mg/L (0.0-10.00) H 02/04/24 07:02
Total Protein Cancelled 02/06/24 11:07
Tot Protein (send out) 6.4 g/dL (6.3-8.2) 02/04/24 12:26
Albumin Cancelled 02/06/24 11:07
Albumin (PEP) 3.46 g/dL (3.75-5.01) L 02/04/24 12:26
Xwtkj-4-Jauhhlnyg 0.40 g/dL (0.19-0.46) 02/04/24 12:26
Txzhp-5-Qmqbcmrqp 0.75 g/dL (0.48-1.05) 02/04/24 12:26
Beta Globulins 0.79 g/dL (0.48-1.10) 02/04/24 12:26
Gamma Globulins 1.00 g/dL (0.62-1.51) 02/04/24 12:26
Monoclonal and FLC EER See note 02/04/24 12:26
Ser Monoclonl Protein Not applicable g/dL (<=0.00) 02/04/24 12:26
Triglycerides 271 mg/dl (10-149) H 02/04/24 07:02
Total Cholesterol 265 mg/dl (50-199) H 02/04/24 07:02
LDL Cholesterol, Calc 143 mg/dl 02/04/24 07:02
VLDL Cholesterol, Calc 54 mg/dl (0-30) H 02/04/24 07:02
HDL Cholesterol 68 mg/dl 02/04/24 07:02
Vitamin B12 740 pg/ml (239-931) 02/04/24 07:02
Folate 4.2 ng/ml (2.76-20) 02/04/24 07:02
TSH Cancelled 02/04/24 07:02
TSH (Reflex) 0.68 uIU/ml (0.47-4.68) 02/04/24 07:02
PTH Intact 13.8 pg/ml (13.6-85.8) 02/04/24 07:02
Immunoglobulin A Cancelled 02/04/24 07:02
Immunoglobulin G Cancelled 02/04/24 07:02
Immunoglobulin M Cancelled 02/04/24 07:02
Urine Color Yellow 02/04/24 06:24
Urine Clarity Clear (Clear) 02/04/24 06:24
Urine pH 6.5 (5.0-9.0) 02/04/24 06:24
Ur Specific [place] 1.005 (<1.030) 02/04/24 06:24
Urine Ketones Trace (Negative) A 02/04/24 06:24
Ur Occult Blood Reflex Negative (Negative) 02/04/24 06:24
Urine Nitrite (Reflex) Negative (Negative) 02/04/24 06:24
Urine Bilirubin Negative (Negative) 02/04/24 06:24
Urine Urobilinogen Negative (Neg - 1+) 02/04/24 06:24
Leukocyte Esterase Rfl 2+ (Negative) A 02/04/24 06:24
Urine RBC 7-10 /HPF (0-2) A 02/04/24 06:24
Urine WBC (Reflex) >100 /HPF (0-5) A 02/04/24 06:24
Ur Squamous Epith Cells >30 /LPF (Few) 02/04/24 06:24
Ur Urothelial Cells >30 /LPF (FEW) 02/04/24 06:24
Amorphous Crystals Seen 02/03/24 14:34
Urine Bacteria (Reflex) Many (Negative) A 02/04/24 06:24
Urine Osmolality 132 mOsm/kg (300-900) L 02/04/24 06:24
Urine Sodium < 5 mmol/L (30-90) L 02/04/24 06:24
Urine Glucose Negative (Negative) 02/04/24 06:24
Urine Albumin (Reflex) Negative (Neg - Trace) 02/04/24 06:24
CSF Appearance Clear 02/03/24 16:20
CSF Color Colorless 02/03/24 16:20
CSF WBC 1 mm^3 (0-5) 02/03/24 16:20
CSF RBC 134 mm^3 02/03/24 16:20
CSF Cell Count Tube # 4 02/03/24 16:20
CSF Glucose 80 mg/dl (40-70) H 02/03/24 16:20
CSF Total Protein 72 mg/dl (12-60) H 02/03/24 16:20
IgG 990 mg/dL (768-1632) 02/04/24 12:26
IgA 297 mg/dL (68-408) 02/04/24 12:26
IgM 95 mg/dL (35-263) 02/04/24 12:26
MARTY & SPEP Interp See note 02/04/24 12:26
Immunofix Electrophor Marty done 02/04/24 12:26
EDDIE IgG Screen None detected (None Detected) 02/04/24 07:02
Proteinase 3 (PR3) Ab 1 AU/mL (0-19) 02/05/24 10:41
Myeloperoxidase Ab 0 AU/mL (0-19) 02/05/24 10:41
GQ1b Antibodies 8 IV (0-50) 02/04/24 07:02
Ganglioside (GM1) Ab 17 IV (0-50) 02/04/24 07:02
Ganglioside (GM2) Ab 13 IV (0-50) 02/04/24 07:02
Asialo GM1 Antibodies 19 IV (0-50) 02/04/24 07:02
GD1a Antibodies 8 IV (0-50) 02/04/24 07:02
GD1b Antibodies 26 IV (0-50) 02/04/24 07:02
Beta-2-GPI IgG Ab <10 SGU (<=20) 02/05/24 10:41
Beta-2-GPI IgA Ab <10 MAINE (<=20) 02/05/24 10:41
Beta-2-GPI IgM Ab 11 SMU (<=20) 02/05/24 10:41
Anti-Cardiolipin IgG Ab <10 GPL (<=14) 02/05/24 10:41
Anti-Cardiolipin IgA Ab <10 APL (<=11) 02/05/24 10:41
Anti-Cardiolipin IgM Ab 13 MPL (<=12) H 02/05/24 10:41
Complement C3 130 mg/dl (88-165) 02/05/24 10:41
Complement C4 48.4 mg/dl (14-44) H 02/05/24 10:41
Free Truman LC, Quant 44.24 mg/L (3.30-19.40) H 02/04/24 12:26
Free Lambda LC, Quant 27.69 mg/L (5.71-26.30) H 02/04/24 12:26
Free Truman/Lambda Ratio 1.60 (0.26-1.65) 02/04/24 12:26
Diagnostic Results: As per HPI
Assessment: 53-year-old female with PMH of( Graves' disease, anxiety, depression, insomnia, hypertension, hayfever, thyroid disease, headache, and alcohol use with abrupt onset bilateral lower extremities weakness of unclear etiology. Imaging and
diagnostic tests as of now negative, questionable acute CVA on MRI of splenium of the corpus callosum
Plan
PM&R: Acute inpatient rehab with PT/OT/SW/RN/psychology to increase independence with ADLs, improve balance, coordination, endurance, strength, mobility, community reintegration, decreased burden of care on others and family education.
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 Plavix, aspirin 81 mg, atorvastatin, amlodipine
Bilateral Leg weakness/neuropathy/Ambulatory Dysfunction: of unclear etiology- Per neuro
Due to the unclear nature of the patient's weakness and lack of clarity regarding the splenium of the corpus callosum lesion, initiate methylprednisolone 1 g IV daily x 3 days started 02/06/2024. would restart 4 doses immunoglobulin if continued
worsening despite all testing negative for AIDP/GBS
HTN: Amlodipine 10mg qd, propranolol 20 mg daily
HLD: Atorvastatin 20mg due to elevated LFTs
DM II: Accu-Cheks, insulin sliding scale,
macrocytosis:likely related to alcohol use, b12 thiamine
transaminitis: likely related to fatty liver, ruqus as expected
Psych: Psychology consult. Monitor mood, adjust medications as needed.
Skin: monitor for pressure sores/rashes/lesions.
FEN: Regular diet.
Pain: acetaminophen as needed, pregabalin 1oo to 150 tid
Bowel: Senna, Miralax
Bladder/BPH: Time void, PVRs, PRN straight cath.
GI Prophylaxis: Pantoprazole 40mg qd , famotidine 20 mg daily as needed
alcohol use disorder:has not had a drink in 4 weeks,thiamine,folate. Abstinence. Propranolol 20 mg daily
DVT Prophylaxis: mechanical and Lovenox
Pulmonary: Incentive spirometry
Safety: Continue to reinforce assistance with all transfers.
Code Status: Full code
Dispo (date/plan/equipment needs): Home with family care.
Discharge Destination: Acute inpatient rehabilitation once testings and imaging have been completed and patient is medically stable prior to discharge
Summary Recommendations: Patient with CVA, bilateral lower extremity weakness with paresthesia associated with Loss of balance without adequate righting reaction to recover unassisted, needs for verbal cues for correct hand placement, assistant administrator with
ADLs would benefit from inpatient acute rehab for PT/OT/SW/RN/psychology to increase independence with ADLs, improve balance, coordination, endurance, strength, mobility, community reintegration, decreased burden of care on others and family
education.
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 PT/OT
Bilateral Leg weakness/Ambulatory Dysfunction: Per neuro
Due to the unclear nature of the patient's weakness and lack of clarity regarding the splenium of the corpus callosum lesion, initiate methylprednisolone 1 g IV daily x 3 days started 02/06/2024. would restart 4 doses immunoglobulin if continued
worsening despite all testing negative for AIDP/GBS. T/C CT abdomen
Pain: acetaminophen as needed, pregabalin 1oo to 150 tid
Bowel: Colace and Senna, PRN bisacodyl.
Bladder/BPH: Time void, PVRs, PRN straight cath.
GI Prophylaxis: Pantoprazole 40mg qd
Thank you for allowing me to care for your patient. Please contact me with any questions or concerns.

Documented by User: Karan Marmolejo MD 02/08/24 23:28
Consultation - Medical
-
Referring Provider:
Chief Complaint: Bilateral leg weakness
History of Present Illness: Patient is a 53-year-old female with PMH of( Graves' disease, anxiety, depression, insomnia, hypertension, hayfever, thyroid disease, headache, and alcohol use who has presented to the hospital with Bilateral lower
extremity weakness on 02/03/2024. Patient reports symptoms started about 4 weeks ago. She started to notice numbness and weakness starting in her feet and her toes which gradually got worse. She reports over the past 3 to 4 days weakness
significantly increased and yesterday was unable to get up off the couch. Weakness now goes as high as her upper thighs. She is having associated discomfort. She reports that occasionally she has shooting pain in her feet that radiates upward
towards her thighs. Hear legs feel heavy. She has no truncal weakness.She also has noted some numbness and tingling in her fingers. She does not notice any weakness of her upper extremities but has difficulty feeling things. Initially given ivig
then stopped since EMG negative ruling out GBS. Imaging of spine- all negative as cause, CTA of head and Neck-negative.
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 Subsequently, after MRI findings there was a suggestion of acute infarct involving the
splenium of the corpus callosum producing symptoms. As the reading of the MRI has been questioned, differential now includes possible paraneoplastic syndrome of unclear etiology since EMG is normal. Consider CT chest abdomen and pelvis to evaluate
for possible carcinomatous etiology.
Blood cultures, U/A culture- negative. She has had multiple urinary tract infections recently and was treated with nitrofurantoin approximately 2 weeks ago.
EMG negative ruling out GBS.
MRI brain 02/04/2024
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 This was reread by another radiologist who suggested that there might be cytotoxic edema
MRI c-spine 02/04/2024
Multilevel degenerative changes of the cervical spine as detailed, worst at C5-6 where disc and uncovertebral/facet disease contribute to mild spinal canal neural foraminal stenosis at this level.
Limited exam from patient motion artifact; however, no convincing MR evidence for spinal cord abnormality/transverse myelitis.
MRI-T-spine/MRI L-spine 02/04/2024
Chronic mild degenerative changes of the thoracic spine and lumbar spine. No MRI evidence for cord signal alteration. No evidence for significant spinal canal stenosis or neuroforaminal stenosis.
CTA head and Neck:normal
Echocardiogram : unremarkable
Abdomen U/S: Hepatic fatty infiltration. Stable. Trace gallbladder sludge. New. No secondary findings to suggest acute cholecystitis
Past Medical History: Graves' disease, anxiety, depression, insomnia, hypertension, hayfever, thyroid disease, headache, GERD, renal failure, UTIs and alcohol
Procedure History: Right breast biopsy, LASIK eye surgery x2
Family History: father-heart disease
Social History:
Functional Level Premorbidly: Independent with all activities
Functional Level at Previous Facility: bed mobility-supervision, transfer-min assist ambulation 25 + 50 feet x 1 with RW- min a, upper extremity care�min assist, lower extremity self-care�supervison, grooming-min assist, toileting-mod assist,
Tobacco: Denies
Alcohol:Former (Drink 3 drinks a day for the past 10 years, recently quit 1 month ago)
Drug use: Denies
Lives With: alone
24-hour assistance available: No
Number of floors: multi level
# steps to enter: 3
# steps to second floor: Full flight
Potential First Floor Set Up: No
Driving: yes
Occupation: student support advisor
Allergies:
Allergy/AdvReac Type Severity Reaction Status Date / Time
adhesive Allergy Rash Verified 02/03/24 10:47
Review of Systems:
Constitutional: (x) abNormal _fatigue
Eye: (x) Normal _
Ear/Nose/Throat: (x) Normal _
Respiratory: (x) Normal _
Cardiovascular: (x)
Gastrointestinal: (x)
Genitourinary: (x) abNormal _recent UTI, thinks she took nitrofurantoin
Musculoskeletal: (x) legs weakness
Integumentary: (x) Normal _
Neurologic: (x) paresthesia-feet, finger tips, cva, weakness in both legs
Psychiatric: (x) Normal _
Endocrine: (x) DM
Hematologic/Lymphatic: (x)
Allergic/Immunologic: (x)
Medications:
Active Current Visit Medication List
Category Date Time Status
Acetaminophen [Tylenol] Med 02/03/24 20:00 Active
650 mg PO Q4HWA
Amlodipine [Norvasc] Med 02/04/24 08:00 Active
10 mg PO DAILY
Ascorbic Acid [Vitamin C] Med 02/04/24 08:00 Active
250 mg PO DAILY
Aspirin Chewable [Low Strength Aspirin] Med 02/05/24 10:00 Active
81 mg PO DAILY
Atorvastatin [Lipitor] Med 02/05/24 18:00 Active
20 mg PO QPM
Clopidogrel Bisulfate [Plavix] Med 02/05/24 14:00 Active
75 mg PO DAILY
Cyanocobalamin [Vitamin B-12] Med 02/04/24 08:00 Active
1,000 mcg PO DAILY
Docusate W/Senna [Senokot-S] Med 02/03/24 16:51 Active
1 tablet PO BIDPRN PRN
Enoxaparin Sodium [Lovenox] Med 02/03/24 18:00 Active
40 mg SC QPM
Famotidine [Pepcid] Med 02/03/24 19:56 Active
20 mg PO DAILYPRN PRN
Flush (0.9% Sodium Chloride) [Flush (Nss)] Med 02/03/24 19:00 Active
See Dose Instructions IV PER PROTOCOL
Magnesium l-Lactate [Mag-Tab Sr] Med 02/04/24 08:00 Active
84 mg PO DAILY
Melatonin Med 02/06/24 22:00 Active
10 mg PO HS
MethylPREDNISolone. [Solu-Medrol] 1,000 mg Med 02/06/24 12:00 Active
0.9% Sodium Chloride 250 ml [Nss] 250 ml
IV Q24H
Polyethylene Glycol Powder [Miralax] Med 02/03/24 16:51 Active
17 grams PO DAILYPRN PRN
Pregabalin [Lyrica] Med 02/07/24 16:00 Active
150 mg PO TID
Propranolol [Inderal] Med 02/04/24 08:00 Active
20 mg PO DAILY
Thiamine HCl [Vitamin B1] Med 02/07/24 11:00 Active
100 mg PO DAILY
Vitals:
Temp Pulse Resp BP Pulse Ox
98.0 F 101 16 111/68 95
02/08/24 03:10 02/08/24 03:10 02/08/24 03:10 02/08/24 03:10 02/08/24 03:10
Height 5 ft 3 in
Actual Weight 64.949 kg
Body Mass Index (BMI) 25.4
Physical Exam:
General Appearance/Observation: Well-developed, well-nourished individual in no apparent distress.
Pain/Comfort Assessment:
Mood/Affect: Appropriate
Integumentary/Operative Site: very dry peeling skin both feet.
Pressure Ulcer evaluation: absent over heels
Eyes: Conjunctiva/Lids: normal Pupils: pupils equal round and reactive to light and Accommodation
Ears/Nose/Throat: oral mucosa moist, throat clear. Lips/Teeth/Gums: normal
Neck: No muscle spasm or tenderness
Cardiovascular: Heart: regular, murmur
Pulses: dorsalis pedis 2+ bilaterally
Respiratory: Respiratory Effort/Chest Expansion: normal. Auscultation: Clear to auscultation bilaterally
Gastrointestinal: abdomen not tender, no distension, normal abdominal bowel sounds
Genitourinary: No Lau
Extremities: Edema:none Cyanosis: None Trophic changes: None
Neurology Exam:
Orientation: Alert, Oriented to self, Time, Place
Memory: Intact for immediate medical concerns
Comprehension: Intact
Two step command: Intact
Naming: Intact
Cranial Nerves:
CNII: Pupillary light reflex: Intact Visual Field: intact
CN III, IV, : Extraocular muscles: Intact
CN V: Facial Sensation at Forehead: Intact , Maxilla: Intact, Mandible: Intact
CN VII: Facial movement: Symmetric
CN VIII: Hearing: Normal
CN IX/X: Speech & swallow: Normal Position of Uvula: Midline
CN XI: Shoulder shrug: Symmetric
CN XII: Tongue protrusion: Midline
Sensory:
Light touch: dysesthesia in bilateral upper > lower extremities. hyperalgesia to pressure by touch-feet
Proprioception: intact bilateral toes.
Reflexes:
Biceps: 1+ bilaterally
Brachioradialis: 1+ bilaterally
Triceps: 1+ bilaterally
Patellar: 0 bilaterally
Achilles: 0 bilaterally
Babinski: upgoing bilaterally
Clonus: none
Usama: Negative bilaterally
Cerebellar: Dysmetria/Ataxia: None
Musculoskeletal:
Motor: (Manual muscle scale 0-5)
Muscle
Muscle SA EF WE EE FF FA HF KE DF EHL PF
Right� 4 4 4 4 3+ 4 4 4 4
Left 4 4 4 4 3+ 4 4 4 4
�
Tone: Normal in all extremities
Range of Motion: Passively within normal limits in all extremities
Lab Results:
Labs
WBC 6.0 10^3/uL (4.8-10.8) 02/06/24 06:38
RBC 3.11 10^6/uL (4.20-5.40) L 02/06/24 06:38
Hgb 11.8 g/dL (12.0-16.0) L 02/06/24 06:38
Hct 33.9 % (37.0-47.0) L 02/06/24 06:38
MCV 109.0 fL (81.0-99.0) H 02/06/24 06:38
MCH 37.9 pg (27.0-31.0) H 12/07/24 06:38
MCHC 34.8 g/dL (33.0-37.0) 12 06:38
RDW 12.4 % (11.5-14.5) 12 06:38
Plt Count 289 10^3/uL (130-400) 12 06:38
MPV 11.1 fL (7.4-10.4) H 12 06:38
Abs Immat Gran (auto) 0.1 10^3/uL (0-0.05) H 02/06/24 06:38
Absolute Neuts (auto) 2.8 10^3/uL (1.4-6.5) 02/06/24 06:38
Absolute Lymphs (auto) 2.1 10^3/uL (1.2-3.4) 12 06:38
Absolute Monos (auto) 0.7 10^3/uL (0.1-0.6) H 02/06/24 06:38
Absolute Eos (auto) 0.2 10^3/uL (0-0.7) 12 06:38
Absolute Basos (auto) 0.1 10^3/uL (0-0.2) 02/06/24 06:38
Immature Gran % 1.3 % (0-0.5) H 02/06/24 06:38
Neutrophils % 47.2 % (42.2-75.2) 02/06/24 06:38
Lymphocytes % 34.9 % (20.5-51.1) 12 06:38
Monocytes % 12.2 % (1.7-9.3) H 02/06/24 06:38
Eosinophils % 3.2 % (0-6) 02/06/24 06:38
Basophils % 1.2 % (0-2) 02/06/24 06:38
Nucleated RBC % 0 % 02/06/24 06:38
ESR 34 mm/hour (0-20) H 02/04/24 07:02
PT 13.9 Sec (11.4-14.6) 02/04/24 07:02
INR 1.02 02/04/24 07:02
APTT 37.2 Sec (23.4-35.0) H 02/04/24 07:02
Protein C >95 % (63-153) 02/05/24 10:41
Protein S Antigen 138 % (63-126) H 02/05/24 10:41
Antithrombin III Activ 92 % (76-128) 02/05/24 10:41
Sodium 140 mmol/L (135-145) 02/06/24 06:38
Potassium 4.2 mmol/L (3.5-5.1) 02/06/24 06:38
Chloride 101 mmol/L (98-107) 02/06/24 06:38
Carbon Dioxide 32 mmol/L (22-30) H 02/06/24 06:38
BUN 21 mg/dl (7-17) H 02/06/24 06:38
Creatinine 1.0 mg/dL (0.6-1.0) 12 06:38
Estimated Creat Clear 54 ml/min 02/06/24 06:38
eGFR > 60.00 02/06/24 06:38
Glucose 88 mg/dl (70-99) 12 06:38
Hemoglobin A1c 5.1 % (4.0-5.6) 02/04/24 07:02
Serum Osmolality 281 mOsm/kg (275-300) 02/04/24 07:02
Lactic Acid 2.1 mmol/L (0.7-2.0) H 02/03/24 16:20
Calcium 9.6 mg/dl (8.4-10.2) 02/06/24 06:38
Ionized Calcium 1.23 mMOL/L (1.15-1.33) 02/04/24 07:02
Magnesium 1.6 mg/dl (1.6-2.3) 02/04/24 07:02
Ferritin 1290.0 ng/ml (11.1-264.0) H 02/04/24 07:02
Total Bilirubin Cancelled 02/06/24 11:07
Direct Bilirubin Cancelled 02/06/24 11:07
AST Cancelled 02/06/24 11:07
ALT Cancelled 02/06/24 11:07
Alkaline Phosphatase Cancelled 02/06/24 11:07
Creatine Kinase 28 U/L (30-135) L 02/06/24 06:38
C-Reactive Protein 80.60 mg/L (0.0-10.00) H 02/04/24 07:02
Total Protein Cancelled 02/06/24 11:07
Tot Protein (send out) 6.4 g/dL (6.3-8.2) 02/04/24 12:26
Albumin Cancelled 02/06/24 11:07
Albumin (PEP) 3.46 g/dL (3.75-5.01) L 02/04/24 12:26
Joqpq-7-Olrogzrzb 0.40 g/dL (0.19-0.46) 02/04/24 12:26
Cbiju-0-Nieqkamci 0.75 g/dL (0.48-1.05) 02/04/24 12:26
Beta Globulins 0.79 g/dL (0.48-1.10) 02/04/24 12:26
Gamma Globulins 1.00 g/dL (0.62-1.51) 02/04/24 12:26
Monoclonal and FLC EER See note 02/04/24 12:26
Ser Monoclonl Protein Not applicable g/dL (<=0.00) 02/04/24 12:26
Triglycerides 271 mg/dl (10-149) H 02/04/24 07:02
Total Cholesterol 265 mg/dl (50-199) H 02/04/24 07:02
LDL Cholesterol, Calc 143 mg/dl 02/04/24 07:02
VLDL Cholesterol, Calc 54 mg/dl (0-30) H 02/04/24 07:02
HDL Cholesterol 68 mg/dl 02/04/24 07:02
Vitamin B12 740 pg/ml (239-931) 02/04/24 07:02
Folate 4.2 ng/ml (2.76-20) 02/04/24 07:02
TSH Cancelled 02/04/24 07:02
TSH (Reflex) 0.68 uIU/ml (0.47-4.68) 02/04/24 07:02
PTH Intact 13.8 pg/ml (13.6-85.8) 02/04/24 07:02
Immunoglobulin A Cancelled 02/04/24 07:02
Immunoglobulin G Cancelled 02/04/24 07:02
Immunoglobulin M Cancelled 02/04/24 07:02
Urine Color Yellow 02/04/24 06:24
Urine Clarity Clear (Clear) 02/04/24 06:24
Urine pH 6.5 (5.0-9.0) 02/04/24 06:24
Ur Specific [place] 1.005 (<1.030) 02/04/24 06:24
Urine Ketones Trace (Negative) A 02/04/24 06:24
Ur Occult Blood Reflex Negative (Negative) 02/04/24 06:24
Urine Nitrite (Reflex) Negative (Negative) 02/04/24 06:24
Urine Bilirubin Negative (Negative) 02/04/24 06:24
Urine Urobilinogen Negative (Neg - 1+) 02/04/24 06:24
Leukocyte Esterase Rfl 2+ (Negative) A 02/04/24 06:24
Urine RBC 7-10 /HPF (0-2) A 02/04/24 06:24
Urine WBC (Reflex) >100 /HPF (0-5) A 02/04/24 06:24
Ur Squamous Epith Cells >30 /LPF (Few) 02/04/24 06:24
Ur Urothelial Cells >30 /LPF (FEW) 02/04/24 06:24
Amorphous Crystals Seen 02/03/24 14:34
Urine Bacteria (Reflex) Many (Negative) A 02/04/24 06:24
Urine Osmolality 132 mOsm/kg (300-900) L 02/04/24 06:24
Urine Sodium < 5 mmol/L (30-90) L 02/04/24 06:24
Urine Glucose Negative (Negative) 02/04/24 06:24
Urine Albumin (Reflex) Negative (Neg - Trace) 02/04/24 06:24
CSF Appearance Clear 02/03/24 16:20
CSF Color Colorless 02/03/24 16:20
CSF WBC 1 mm^3 (0-5) 02/03/24 16:20
CSF RBC 134 mm^3 02/03/24 16:20
CSF Cell Count Tube # 4 02/03/24 16:20
CSF Glucose 80 mg/dl (40-70) H 02/03/24 16:20
CSF Total Protein 72 mg/dl (12-60) H 02/03/24 16:20
IgG 990 mg/dL (768-1632) 02/04/24 12:26
IgA 297 mg/dL (68-408) 02/04/24 12:26
IgM 95 mg/dL (35-263) 02/04/24 12:26
MARTY & SPEP Interp See note 02/04/24 12:26
Immunofix Electrophor Marty done 02/04/24 12:26
EDDIE IgG Screen None detected (None Detected) 02/04/24 07:02
Proteinase 3 (PR3) Ab 1 AU/mL (0-19) 02/05/24 10:41
Myeloperoxidase Ab 0 AU/mL (0-19) 02/05/24 10:41
GQ1b Antibodies 8 IV (0-50) 02/04/24 07:02
Ganglioside (GM1) Ab 17 IV (0-50) 02/04/24 07:02
Ganglioside (GM2) Ab 13 IV (0-50) 02/04/24 07:02
Asialo GM1 Antibodies 19 IV (0-50) 02/04/24 07:02
GD1a Antibodies 8 IV (0-50) 02/04/24 07:02
GD1b Antibodies 26 IV (0-50) 02/04/24 07:02
Beta-2-GPI IgG Ab <10 SGU (<=20) 02/05/24 10:41
Beta-2-GPI IgA Ab <10 MAINE (<=20) 02/05/24 10:41
Beta-2-GPI IgM Ab 11 SMU (<=20) 02/05/24 10:41
Anti-Cardiolipin IgG Ab <10 GPL (<=14) 02/05/24 10:41
Anti-Cardiolipin IgA Ab <10 APL (<=11) 02/05/24 10:41
Anti-Cardiolipin IgM Ab 13 MPL (<=12) H 02/05/24 10:41
Complement C3 130 mg/dl (88-165) 02/05/24 10:41
Complement C4 48.4 mg/dl (14-44) H 02/05/24 10:41
Free Truman LC, Quant 44.24 mg/L (3.30-19.40) H 02/04/24 12:26
Free Lambda LC, Quant 27.69 mg/L (5.71-26.30) H 02/04/24 12:26
Free Truman/Lambda Ratio 1.60 (0.26-1.65) 02/04/24 12:26
Diagnostic Results: As per HPI
Assessment:
53-year-old right-handed female with PMH of( Graves' disease, anxiety, depression, insomnia, hypertension, hayfever, thyroid disease, headache, and alcohol use with abrupt onset bilateral lower extremities weakness of unclear etiology. Imaging and
diagnostic tests as of now negative, questionable acute CVA on MRI of splenium of the corpus callosum
Plan
PM&R: Acute inpatient rehab with PT/OT/SW/RN/psychology to increase independence with ADLs, improve balance, coordination, endurance, strength, mobility, community reintegration, decreased burden of care on others and family education.
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 Plavix, aspirin 81 mg, atorvastatin, amlodipine. Repeating MRI per neuro.
Bilateral Leg weakness/neuropathy/Ambulatory Dysfunction: of unclear etiology- Per neuro
Due to the unclear nature of the patient's weakness and lack of clarity regarding the splenium of the corpus callosum lesion, initiate methylprednisolone 1 g IV daily x 3 days started 02/06/2024. would restart 4 doses immunoglobulin if continued
worsening despite all testing negative for AIDP/GBS
-S/P muscle biopsy. Undergoing further evaluation.
-Has no reflexes in legs but upgoing Babinski. With weakness and sensory concerns as well.
HTN: Amlodipine 10mg qd, propranolol 20 mg daily
HLD: Atorvastatin 20mg due to elevated LFTs
DM II: Accu-Cheks, insulin sliding scale,
macrocytosis:likely related to alcohol use, b12 thiamine
transaminitis: likely related to fatty liver, ruqus as expected
Psych: Psychology consult. Monitor mood, adjust medications as needed.
Skin: monitor for pressure sores/rashes/lesions.
FEN: Regular diet.
Pain: acetaminophen as needed, pregabalin 1oo to 150 tid
Bowel: Senna, Miralax
Bladder/BPH: Time void, PVRs, PRN straight cath.
GI Prophylaxis: Pantoprazole 40mg qd , famotidine 20 mg daily as needed
alcohol use disorder:has not had a drink in 4 weeks,thiamine,folate. Abstinence. Propranolol 20 mg daily
DVT Prophylaxis: mechanical and Lovenox
Pulmonary: Incentive spirometry
Safety: Continue to reinforce assistance with all transfers.
Code Status: Full code
Dispo (date/plan/equipment needs): Home with family care.
Discharge Destination: Acute inpatient rehabilitation once testings and imaging have been completed and patient is medically stable prior to discharge
Attending Statement:
I saw and examined the patient today. Reviewed care plan with patient, therapy, nursing, and physician assistant administrator. I agree with the above subjective and physical exam, and plan as documented by HILL Hylton with adjustments made as necessary.
Summary Recommendations: Patient with ? CVA, bilateral lower extremity weakness with paresthesia associated with Loss of balance without adequate righting reaction to recover unassisted, needs for verbal cues for correct hand placement, assistant administrator
with ADLs would benefit from inpatient acute rehab for PT/OT/SW/RN/psychology to increase independence with ADLs, improve balance, coordination, endurance, strength, mobility, community reintegration, decreased burden of care on others and family
education.
?CVA: Nonhemorrhagic acute/subacute infarct involving the splenium of the corpus callosum. PT/OT. Repeating MRI per neuro
Bilateral Leg weakness/neuropathy/Ambulatory Dysfunction: of unclear etiology- Per neuro
Due to the unclear nature of the patient's weakness and lack of clarity regarding the splenium of the corpus callosum lesion, initiate methylprednisolone 1 g IV daily x 3 days started 02/06/2024. would restart 4 doses immunoglobulin if continued
worsening despite all testing negative for AIDP/GBS
-S/P muscle biopsy. Undergoing further evaluation.
-Has no reflexes in legs but upgoing Babinski. With weakness and sensory concerns as well.
Pain: acetaminophen as needed, pregabalin 1oo to 150 tid
Bowel: Colace and Senna, PRN bisacodyl.
Bladder/BPH: Time void, PVRs, PRN straight cath.
GI Prophylaxis: Pantoprazole 40mg qd
Thank you for allowing me to care for your patient. Please contact me with any questions or concerns.
--- NOTE | 2024-02-08 09:35 | W.PN.HOSP.TC ---
Today's Communication/Plan
-
.
Assessment / Plan
Assessment / Plan
Ischemic infarct of the corpus callosum:
- MRI of brain shows a infarct at the corpus callosum
- Physiatry consulted
- Aspirin/ clopidogrel for 21 days, then just aspirin
- Low dose atorvastatin 20 mg
- PT/OT state they would like patient to go to acute rehab when medically stable
- echo normal
- CTA normal
- Sensation intact, Lower left extremity weakness compared to right
- Antiphospholipid antibody, protein C, protein S, immunological studies pending
- Follow up with neurology in 1 month for a repeat MRI of the brain
Paraneoplastic syndrome?:
- follow neurology
- Started on IV steroids
Alcohol use disorder:
- Former drinker, quit 4 weeks ago
- Supplement with thiamine and folate.
Macrocytic Anemia:
- hb is 13.7, mcv 109
- Likely due to alcohol abuse, advised on cessation of further alcohol use
Elevated liver enzymes:
-AST, ALT trending down, continue to observe
- Likely due to fatty liver
Hypertension:
- Continue Amlodipine
Depression:
- Continue Escitalopram
Positive hepatits A infection:
-outpatient follow up with GI
pt rec ARU
Anticipated Discharge: Within 24 hours
Subjective/Interval History
-
Date of Service: February 08, 2024
No overnight events.
No acute medical problems.
Objective Data
-
Vital Signs:
Vital Signs
Temp Pulse Resp BP Pulse Ox
98.5 F 113 16 118/82 98
02/08/24 07:04 02/08/24 08:17 02/08/24 07:04 02/08/24 08:17 02/08/24 07:04
I&O
02/07/24 02/08/24 02/09/24
06:59 06:59 06:59
Intake Total 1090 / 1090 1679
Output Total 250 / 250
Balance 840 / 840 1679
Review of Systems
-
History Source: Patient
Constitutional: Denies Fever or Chills
EENT: Denies Blurry Vision or Eye Pain
Respiratory: Denies Cough or Wheezing
Cardiac: Denies Chest Pain, Diaphoresis, Palpitations, Syncope, PND or Orthopnea
Abdomen/GI: Denies Abdominal Pain, Nausea, Vomiting, Diarrhea or Constipated
Genitourinary: Denies Dysuria
Musculoskeletal: Reports Muscle Weakness (Lower extremities bilaterally ); Denies Joint Pain
Skin: Denies Itching or Rash
Neuro: Reports Weakness (Bilateral lower extremities) and Numbness (Bilateral lower extremities); Denies Dizzy
Physical Exam
-
Respiratory: Clear to Auscultation
Cardiac: Regular Rhythm and S1/S2
GI: Soft, Nontender, Nondistended and Normal Bowel Sounds
Genito-urinary: No Costovertebral Tender; Negative Costovertebral Angle Tend
Musculoskeletal: No Cyanosis and No Edema
Skin: Warm and Dry
Neuro: Awake, Alert, Oriented, AO x 3, No Motor Deficits, No Sensory Deficits, DTR's Intact & Symmetrica and Other (weakness in left lower extremity compared to right)
Data Reviewed
-
Medical Tests (Nuc Med, Echo etc): Image personally visualized and interpreted and Discussed with Physician
Labs: Labs Reviewed by me and Discussed with Physician
[2024-02-08 10:07] LABS: Hematocrit 32.7 % (37.0-47.0); Hemoglobin 11.3 g/dL (12.0-16.0); Mean Corp Hgb Conc. 34.6 g/dL (33.0-37.0); Mean Corpuscular Hgb 37.2 pg (27.0-31.0); Mean Corpuscular Volume 107.6 fL (81.0-99.0); Mean Platelet Volume 11.7 fL (7.4-10.4); Platelet Count 299 10^3/uL (130-400); Red Blood Cell Count 3.04 10^6/uL (4.20-5.40); Red Cell Dist. Width 12.4 % (11.5-14.5); White Blood Cell Count 18.8 10^3/uL (4.8-10.8)
--- NOTE | 2024-02-08 10:46 | CM ---
Chart reviewed. PT/OT cont to recommend acute rehab at d/c
Per last CM note, pt prefers [facility] Referral completed in [facility]
PM&R ordered.
Per [facility], possibly will have a bed available today or tomorrow
Will need auth
Plan: [facility]; pending auth approval
[2024-02-08] MEDS: SOLU-MEDROL 258 MG IV (12:23)
--- NOTE | 2024-02-08 13:43 | W.PN.NEURO.1 ---
Addendum entered and electronically signed by Anaid Martinez MD 02/08/24 18:31:
painful paraparesis
Original Note:
Today's Communication / Plan
-
.
Subjective/Objective
Subjective Data
Date of Service: February 08, 2024
Neurology Follow Up Note.
HPI: This is a 53 year old RH woman who presented to [facility] on 02/03/2024 with painful over paraparesis.
developed gradual progressing initially painless symmetric leg weakness limit her ability to get out of her lower seated car in November 2023. Her weakness worsened before she developed shooting pains down in her legs requiring Tylenol
every 4 hours around 1-1/2 2 weeks ago. Ms. Tiwari sustained several falls before she developed symmetric distal paresthesias around 1 week ago. Her leg pain and weakness worsened to the point that she was on the couch for 2 days using a bedpan
prior to deciding to call an ambulance. According to EMS report patient stated that she cannot walk because both of her legs 'hurt too much when she moves them '.
Ms. Tiwari reportedly was treated with antibiotics (question alisson nitrofurantoin?) around 14 days ago prior to the admission.
Additionally, she mentions having cold hands with painful pins and needles sensation in the fingertips, which has interfered with her ability to tie a bow on her hospital gown.
No reports of diplopia, dysphagia, dyspnea or dysarthria.
ER VS: 93/59, 96, afebrile
PDMP: none
Labs: glucose 140, WBCs�18.8, MCV�102.4, platelets�447, ESR�34, CRP�80.6, Na-132, creatinine�1.1, hemoglobin A1c�5.1, magnesium�1.6, ferritin�1290, total bilirubin�1.6, AST-95, ALT 52, CK-28, LDL 143, vit b12-740, normal free T4.
CSF(02/03/2024) WBC 1, RBC 134, protein 72, gluc 80, hep panel-neg
Brain MRI w/wo rickey-acute/subacute infarct involving the splenium of the corpus callosum.
CTA head/neck-no evidence for large vessel occlusion. No evidence of corresponding hypodensity to the focal area of restricted diffusion within the midline splenium of the corpus callosum on recent MRI examination.
NCS/EMG(02/04/2024) normal including F waves.
Ms. Tiwari was treated with IVIG. She received 2 doses of centimeter (from). Patient does not believe her leg pain or weakness have improved.
PMH: HTN, CKD, GERD, LLL pulmonary nodule, hepatic steatosis, nephrolithiasis.
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
FH:no history of neuromuscular disease
All:NKDA
ROS:Constitutional: Negative. Negative for chills, fever and unexpected weight change.
HENT: Negative for ear pain, hearing loss, tinnitus and trouble swallowing.
Eyes: Negative. Negative for photophobia, pain and visual disturbance.
Respiratory: Negative for cough, choking and shortness of breath.
Cardiovascular: Negative for chest pain, palpitations and leg swelling.
Gastrointestinal: Negative for abdominal pain and vomiting.
Endocrine: Negative. Negative for cold intolerance.
Genitourinary: Negative for dysuria, flank pain and urgency.
Musculoskeletal: Negative for back pain, gait problem, neck pain and neck stiffness.
Skin: Negative for rash.
Allergic/Immunologic: Negative. Negative for immunocompromised state.
Neurological: Positive for leg weakness, myalgias, distal paresthesias
Psychiatric/Behavioral: Negative for behavioral problems, confusion and hallucinations.
General: Well developed. In no acute distress.
Cardio: Regular rate and rhythm without murmur. Extremities are without cyanosis or edema.
Neuro:
Mental Status: Alert, oriented to person, place, and date. Normal attention and recall. Good fund of knowledge. Follows complex requests across the midline. Comprehension, naming, and repetition intact. Immediate and delayed recall 3/3.
Cranial Nerves: . Pupils are equally round and reactive to light. EOMs full. Visual dillard full to confrontation. No ptosis. No nystagmus. V1-V3 intact to light touch and pinprick bilaterally, symmetric. Face symmetric. Normal hearing AU.
The palate elevated well. SCMs and traps 5/5. Tongue midline. No dysarthria.
Motor: Normal bulk and tone. No pronator or arm drift. Strength 5/5 throughout except for proximal symmetric lower greater than upper weakness (bilateral iliopsoas 4 -/5, bilateral delts/tric biceps 4/5, neck flexors 5-/5. No clonus. Normal
finger flexors strength.
Reflexes: 2+ throughout the upper extremities and 0 knees. 0/2 in AJs. Plantar responses flexor bilaterally.
Sensory: Reduced vibration at the toes and ankles.
Coordination: No dysmetria or tremor.
Gait: deferred
Assessment and Plan:
I. Subacute proximal myopathy involving lower and upper extremities. Differential diagnosis includes inflammatory versus toxic, less likely metabolic, dystrophic or mitochondrial.
II. Acute/subacute splenium of the corpus callosum DWI signal abnormality.
III. Clinical distal symmetric large fiber polyneuropathy based on symptoms and areflexia in lower extremities
-Continue telemetry monitoring
-Left quadriceps (rectus femoris) biopsy to look for�muscle fiber necrosis, degeneration, regeneration, and an inflammatory cell infiltrate
-Avoid myotoxins (statins, alcohol)
-Consider switching simvastatin to Repatha
-Additional myopathy blood work
-Continue thiamine
-Hematology(coagulopathy work up), rheumatology consult(myopathy work up)
-Continue ASA 81mg QD indefinitely and Plavix 75 mg
-repeat brain MRI w/wo rickey(DWI, ADC, FLAIR and post contrast sequences)to clarify splenium of the corpus callosum abnormality to clarify the need for DAPT.
-Continue PT
-DVT prophylaxys.
I personally reviewed all radiology and labs along with past medical records pertinent to current medical problems. Total time spent in patient care is 45 minutes.
Thank you for allowing us to participate in the care of this patient. We will continue to follow. Please do not hesitate to contact us with any questions or concerns.
Objective Data
Vital Signs
Temp Pulse Resp BP Pulse Ox
36.9 C 95 18 106/69 97
02/08/24 11:42 02/08/24 11:42 02/08/24 11:42 02/08/24 11:42 02/08/24 11:42
Lab Results
02/08/24 09:49
02/06/24 06:38
PT 13.9 Sec (11.4-14.6) 02/04/24 07:02
INR 1.02 02/04/24 07:02
APTT 37.2 Sec (23.4-35.0) H 02/04/24 07:02
Sodium 140 mmol/L (135-145) 02/06/24 06:38
Potassium 4.2 mmol/L (3.5-5.1) 02/06/24 06:38
BUN 21 mg/dl (7-17) H 02/06/24 06:38
Glucose 88 mg/dl (70-99) 02/06/24 06:38
Calcium 9.6 mg/dl (8.4-10.2) 02/06/24 06:38
LDL Cholesterol, Calc 143 mg/dl 02/04/24 07:02
Vitamin B12 740 pg/ml (239-931) 02/04/24 07:02
Patient Allergies
adhesive Allergy (Verified 02/03/24 10:47)
Rash
Vital Signs and Labs
-
Vital Signs and Labs:
Vital Signs
Temp Pulse Resp BP Pulse Ox
36.9 C 85 18 103/66 98
02/08/24 15:24 02/08/24 15:24 02/08/24 15:24 02/08/24 15:24 02/08/24 15:24
Lab Results
02/08/24 09:49
02/06/24 06:38
PT 13.9 Sec (11.4-14.6) 02/04/24 07:02
INR 1.02 02/04/24 07:02
APTT 37.2 Sec (23.4-35.0) H 02/04/24 07:02
Sodium 140 mmol/L (135-145) 02/06/24 06:38
Potassium 4.2 mmol/L (3.5-5.1) 02/06/24 06:38
BUN 21 mg/dl (7-17) H 02/06/24 06:38
Glucose 88 mg/dl (70-99) 02/06/24 06:38
Calcium 9.6 mg/dl (8.4-10.2) 02/06/24 06:38
Phosphorus 1.1 mg/dl (2.5-4.5) L 02/08/24 13:53
LDL Cholesterol, Calc 143 mg/dl 02/04/24 07:02
Vitamin B12 740 pg/ml (239-931) 02/04/24 07:02
Medications
-
Medications:
Generic Name Dose Route Start Last Admin
Trade Name Freq PRN Reason Stop Dose Admin
Acetaminophen 650 mg 02/03/24 20:00 02/08/24 16:42
Acetaminophen 325 Mg Tablet PO 03/02/24 19:59 650 mg
Q4HWA NAVIN Administration
Amlodipine Besylate 10 mg 02/04/24 08:00 02/08/24 08:17
Amlodipine 10 Mg Tablet PO 03/03/24 07:59 10 mg
DAILY NAVIN Administration
Ascorbic Acid 250 mg 02/04/24 08:00 02/08/24 08:17
Ascorbic Acid 250 Mg Tablet PO 03/03/24 07:59 250 mg
DAILY NAVIN Administration
Aspirin 81 mg 02/05/24 10:00 02/08/24 08:18
Aspirin 81 Mg Chewable Tablet PO 03/04/24 09:59 81 mg
DAILY NAVIN Administration
Atorvastatin Calcium 20 mg 02/05/24 18:00 02/07/24 17:01
Atorvastatin (Lipitor) 20 Mg Tablet PO 03/04/24 17:59 20 mg
QPM NAVIN Administration
Clopidogrel Bisulfate 75 mg 02/05/24 14:00 02/08/24 08:17
Clopidogrel 75 Mg Tablet PO 03/04/24 13:59 75 mg
DAILY NAVIN Administration
Cyanocobalamin 1,000 mcg 02/04/24 08:00 02/08/24 08:17
Cyanocobalamin 1,000 Mcg Tablet PO 03/03/24 07:59 1,000 mcg
DAILY NAVIN Administration
Enoxaparin Sodium 40 mg 02/03/24 18:00 02/07/24 17:01
Enoxaparin Sodium 40 Mg/0.4 Ml Syringe SC 03/02/24 17:59 40 mg
QPM NAVIN Administration
Famotidine 20 mg 02/03/24 19:56 02/07/24 17:01
Famotidine 20 Mg Tablet PO 03/02/24 19:55 20 mg
DAILYPRN PRN Administration
heartburn
Magnesium 84 mg 02/04/24 08:00 02/08/24 08:17
Magnesium Lactate 84 Mg Tablet PO 03/03/24 07:59 84 mg
DAILY NAVIN Administration
Melatonin 10 mg 02/06/24 22:00 02/07/24 22:27
Melatonin 5 Mg Tablet PO 03/05/24 21:59 10 mg
HS NAVIN Administration
Polyethylene Glycol 17 grams 02/03/24 16:51 02/08/24 08:25
Polyethylene Glycol Powder 17 Grams Packet PO 03/02/24 16:50 17 grams
DAILYPRN PRN Administration
constipation
Pregabalin 150 mg 02/07/24 16:00 02/08/24 16:42
Pregabalin 75 Mg Capsule PO 03/06/24 15:59 150 mg
TID NAVIN Administration
Propranolol HCl 20 mg 02/04/24 08:00 02/08/24 08:17
Propranolol 20 Mg Regular Release Tablet PO 03/03/24 07:59 20 mg
DAILY NAVIN Administration
Senna/Docusate Sodium 1 tablet 02/03/24 16:51 02/07/24 22:28
Docusate W/Senna (Kathie-Colace) Tablet PO 03/02/24 16:50 1 tablet
BIDPRN PRN Administration
constipation
Sodium Chloride 0 flush 02/03/24 19:00 02/06/24 13:11
Sodium Chloride 0.9% (Flush) Syringe IV 03/02/24 18:59 2 flush
PER PROTOCOL NAVIN Administration
Thiamine HCl 100 mg 02/07/24 11:00 02/08/24 08:17
Thiamine 100 Mg Tablet PO 02/09/24 08:01 100 mg
DAILY NAVIN Administration
Home Medications
-
Home Medications
famotidine 20 mg tablet (Zantac-360 (famotidine)) 20 mg PO DAILYPRN PRN heartburn 12/15/22
propranolol 20 mg tablet 20 mg PO DAILY 12/15/22
acetaminophen 325 mg tablet (Tylenol) 650 mg PO Q6HPRN PRN mild pain 02/03/24
amlodipine 10 mg tablet 10 mg PO DAILY 02/03/24
ascorbic acid (vitamin C) 250 mg tablet (Vitamin C) 250 mg PO DAILY 02/03/24
cyanocobalamin (vitamin B-12) 1,000 mcg tablet 1,000 mcg PO DAILY 02/03/24
magnesium oxide 400 mg PO DAILY 02/03/24
potassium 99 mg tablet 99 mg PO DAILY 02/03/24
--- NOTE | 2024-02-08 14:30 | W.PN.UPDATE ---
Update Note
Progress Note Update
I saw and evaluated the patient. I reviewed the resident�s note and agree with findings and plan as documented in the resident�s note.
Reports bilateral lower extremity paresthesias, especially when she lays down. States she was able to walk with a walker.
Gen: NAD, AAOx3.
Eyes: EOMI, PERRLA, no scleral icterus.
Neck: supple.
CV: RRR, +S1/S2, no m/r/g.
Resp: CTAB, no rales, wheezes, or rhonchi.
Abd: +BS, soft, NT, ND
Skin: No rashes.
Neuro: CN 2-12 intact, 5/5 strength x 4. Patellar tendons hyporeflexic.
Psych: Normal mood and affect.
02/03/24 16:20 Csf CSF Culture - Final
No Growth After 5 Days - Final Report
02/03/24 16:20 Csf Gram Stain - Final
02/04/24 03:30 Blood/Venous Blood Culture - Preliminary
No Growth in 4 days- Final report to follow
02/03/24 19:43 Blood/Venous Blood Culture - Preliminary
No Growth in 4 days- Final report to follow
02/04/24 06:24 Urine Urine Culture - Final
02/03/24 14:34 Urine Urine Culture - Final
Escherichia coli
02/03/24 16:14 Csf Meningitis/Encephalitis Panel (PCR) - Final
Abd U/S: Hepatic fatty infiltration. Stable. Trace gallbladder sludge. New. No secondary findings to suggest acute cholecystitis
MRI C-spine w/wo: Multilevel degenerative changes of the cervical spine as detailed, worst at C5-6 where disc and uncovertebral/facet disease contribute to mild spinal canal neural foraminal stenosis at this level. Limited exam from patient motion
artifact; however, no convincing MR evidence for spinal cord abnormality/transverse myelitis.
MRI T/L-spine: Chronic mild degenerative changes of the thoracic spine and lumbar spine. No MRI evidence for cord signal alteration. No evidence for significant spinal canal stenosis or neuroforaminal stenosis.
CTA head/neck: No evidence of acute intracranial abnormality. No significant narrowing or atherosclerotic disease involving the common carotid arteries, carotid bulbs, proximal internal carotid arteries, or cervical internal carotid arteries
bilaterally. Hypoplastic A1 segment of the left anterior cerebral artery, considered normal variation. No evidence for high-grade stenosis or large vessel occlusion of the intracranial circulation. Vertebral basilar anatomy as described with
bilateral relatively large caliber posterior inferior cerebellar artery branches arising from the superior vertebral arteries. No evidence for high-grade stenosis.
Acute/subacute CVA:
-presented with ascending B/L paraesthesias and ambulatory dysfunction after vaccine admin at the beginning of November
-s/p LP on admission: gluc/prot elevated, 1WBC. Meningitis/encephalitis panel negative
-MRI brain: Nonhemorrhagic acute/subacute infarct involving the splenium of the corpus callosum.
-cont ASA/statin/Plavix
-regarding presenting symptoms, EMG was without evidence of AIDP. GBS currently ruled out. Pt was on IVIG which has been stopped.
-MRI spine without acute findings as above
-neuro following, discussed with Dr. Martinez
Other problems:
Essential HTN: cont Propranolol/Norvasc
Transaminitis, mild, likely related to fatty liver
Alcohol use disorder: cont thiamine/folate.
Macrocytic anemia, likely due to alcohol use
HAV POS: outpt GI f/u
NIDA, mild, resolved
Hypokalemia, resolved
FULL/Lovenox
Total time spent on today's encounter was 50 minutes which included time spent in counseling the patient/family regarding diagnosis and treatment plan as listed above, goals of care, and symptom management. Case was discussed with nursing staff,
specialists, and care coordinators/case management. All labs and imaging personally reviewed by me. Remainder the time spent in detailed review of previous records, lab data, imaging, and other medical provider documentation.
[2024-02-08 14:51] LABS: LDH 192 U/L (120-246); Phosphorus 1.1 mg/dl (2.5-4.5)
[2024-02-08 15:11] LABS: Erythrocyte Sed Rate 34 mm/hour (0-20)
[2024-02-08 15:18] LABS: TSH Reflex To Free T4 0.39 uIU/ml (0.47-4.68)
[2024-02-08 15:48] LABS: Free T4 1.63 ng/dl (0.78-2.19)
[2024-02-08 16:02] LABS: Lyme Disease DNA by PCR Not Detected; Lyme Source CSF
[2024-02-08 17:00] LABS: HIV Combo Negative (Negative)
[2024-02-08] MEDS: LIPITOR 20 MG PO (18:04)
[2024-02-08] MEDS: LOVENOX 40 MG SC (18:04)
[2024-02-08] MEDS: MELATONIN 10 MG PO (22:22)
[2024-02-09] MEDS: TYLENOL 650 MG PO ×6 (00:16→23:58)
[2024-02-09 01:14] LABS: Anti-Xa Qualitative Interp Not Performed (Not Present); Anticoagulant Med Neutralizati Not Performed (Not Performed); Hexagonal Phospholipid Confirm Not Performed s (<=7.9); Neutralized PTT-LA Ratio Not Performed (<=1.20); Neutralized dRVTT Screen Ratio Not Performed (<=1.20); PTT-LA Ratio 1.08 (<=1.20); Prothrombin Time 13.2 s (12.0-15.5); Thrombin Time Not Performed s (<=19.5); dRVTT 1.1 Mix Ratio Not Performed (<=1.20); dRVTT Confirmation Ratio Not Performed (<=1.20); dRVTT Screen Ratio 0.84 (<=1.20)
[2024-02-09] MEDS: TYLENOL PO (04:00)
[2024-02-09 07:36] VITALS: BP 132/93
[2024-02-09] MEDS: NORVASC 10 MG PO (08:15)
[2024-02-09] MEDS: LOW STRENGTH ASPIRIN 81 MG PO (08:15)
[2024-02-09] MEDS: LYRICA 150 MG PO ×3 (08:15→22:11)
[2024-02-09] MEDS: MAG-TAB SR 84 MG PO (08:15)
[2024-02-09] MEDS: VITAMIN B1 100 MG PO ×2 (08:15→12:56)
[2024-02-09] MEDS: VITAMIN C 250 MG PO (08:16)
[2024-02-09] MEDS: INDERAL 20 MG PO (08:16)
[2024-02-09] MEDS: PLAVIX 75 MG PO (08:16)
[2024-02-09] MEDS: VITAMIN B-12 1000 MCG PO (08:16)
[2024-02-09 08:52] LABS: Hematocrit 32.7 % (37.0-47.0); Hemoglobin 11.6 g/dL (12.0-16.0); Mean Corp Hgb Conc. 35.5 g/dL (33.0-37.0); Mean Corpuscular Hgb 37.8 pg (27.0-31.0); Mean Corpuscular Volume 106.5 fL (81.0-99.0); Mean Platelet Volume 11.8 fL (7.4-10.4); Platelet Count 257 10^3/uL (130-400); Red Blood Cell Count 3.07 10^6/uL (4.20-5.40); Red Cell Dist. Width 12.6 % (11.5-14.5); White Blood Cell Count 11.8 10^3/uL (4.8-10.8)
--- NOTE | 2024-02-09 09:17 | W.DCSUMMARY ---
Discharge Summary
Discharge Data
Date of Admission: 02/03/24
Date of Discharge: 02/09/24
-
Pending Results: No
Hospital Course
Discharging Physician : Dr. Toney Leiva
Disposition [facility]
Primary care physician : Dr. lAas
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
Chronic Discharge diagnosis : Paraneoplastic syndrome?, Hypokalemia, Hypophosphatemia, Alcohol use disorder, Macrocytic Anemia,Elevated liver enzymes, Hypertension, Depression, Positive hepatits A infection
Hospital Course : Patient is a 53-year-old female, full code, PCP Dr. Alas with past medical history of GERD, hypertension, renal failure, depression, UTI, alcohol abuse who presented via the ambulance with bilateral numbness, weakness,paresthesia
of the lower extremities which is ascending and then she could feel it in both of her arms. On admission her initial workup was for Guillain-Abdalla� syndrome however CSF analysis and culture was negative. Urine culture negative for any pathogens,
blood culture negative for any pathogens. Patient was then trialed on IVIG and discontinued. Patient was also trialed on steroids and discontinued after no improvement in her symptoms. MRI of the thoracic, lumbar, cervical spine was performed and
negative. MRI of the brain revealed ischemic infarct of the corpus callosum. Follow-up head neck CTA negative. Echocardiogram normal. Patient was then placed on aspirin 81 mg indefinitely, Plavix 75 Mg, and atorvastatin 40 mg.. However patient
still had decreased tendon reflexes, paresthesias, weakness in her lower extremities so the official diagnosis is not a stroke. Another potential diagnosis could be subacute proximal myopathy involving the lower and upper extremities. this requires
further workup so we insist on patient following up with neurology to get a follow-up EMG and muscle biopsy outpatient. On 02/20/2024 patient will be discharged to [place] [facility]. Patient continued on B12, thiamine, pregabalin 150 3 times daily.
Alcohol use disorder, supplement with thiamine and folate
Macrocytic anemia: Patient should get repeat CBC at her primary care in 1 week
Hypertension: Continue amlodipine
Depression:Continue escitalopram
Positive hepatitis A infection and elevated LFTs: Outpatient follow-up with GI
Important imaging findings :
MRI of the brain without contrast :
There is decreased size and conspicuity of the focus of restricted diffusion within the splenium of corpus callosum which now measures 8mm, previously 12 mm and is favored to represent evolving cytotoxic lesion of the corpus callosum.
No new acute intracranial abnormality.
MRI of brain on 02/04/2024:
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
Procedure findings :
Discharge Plan
-
Patient Disposition: Acute Rehab Facility
Discharge Diagnosis/Procedures: Ischemic infarct of the corpus callosum, Paraneoplastic syndrome, Macrocytic Anemia, Alcohol use disorder, Elevated liver enzymes, Hypertension, Depression, Positive hepatitis A infection
Condition: Fair
Diet: Low Cholesterol
Activity: As tolerated
Driving Restrictions: Not until seen by your Dr
Bathing Restrictions: None
Other Services: PT and OT
Activity Restrictions/Additional Instructions:
CBC with PCP in 1 week
BMP with PCP in 1 week
CPK with pcp in 1 week
Phosphorus levels check with PCP in 1 week
Follow up with Neurology outpatient in 3-4 weeks for possible muscle biopsy and EMG with repetitive nerve stimulation.
Follow up with gastroenterology to evaluate positive anti- HAV test further and also elevated LFT's
Referrals:
Trever Rosas CRNP [Family Provider] - in less than 1 week
Anaid Martinez MD [Active] - in three to four weeks
Magy Rowell MD [Active] - in two to four weeks
Additional Discharge Medication Instructions: Continue aspirin and Clopidogrel indefinitely
Prescriptions:
New
polyethylene glycol 3350 17 gram Powder In Packet
17 g PO DAILYPRN PRN (Reason: constipation) Qty: 1 0RF
sennosides-docusate sodium 8.6-50 mg Tablet
1 tab PO BIDPRN PRN (Reason: constipation) Qty: 30 0RF
clopidogrel 75 mg Tablet
75 mg PO DAILY Qty: 30 0RF
aspirin 81 mg Tablet,Chewable
81 mg PO DAILY Qty: 30 0RF
melatonin 5 mg Tablet
10 mg PO HS Qty: 30 0RF
pregabalin 75 mg Capsule
150 mg PO TID Qty: 30 0RF
atorvastatin 40 mg tablet
40 mg PO DAILY Qty: 30 0RF
Continued
acetaminophen [Tylenol] 325 mg Tablet
650 mg PO Q6HPRN PRN (Reason: mild pain) Qty: 30 0RF
cyanocobalamin (vitamin B-12) 1,000 mcg Tablet
1,000 mcg PO DAILY Qty: 30 0RF
famotidine [Zantac-360 (famotidine)] 20 mg Tablet
20 mg PO DAILYPRN PRN (Reason: heartburn) Qty: 30 0RF
ascorbic acid (vitamin C) [Vitamin C] 250 mg Tablet
250 mg PO DAILY Qty: 30 0RF
amlodipine 10 mg Tablet
10 mg PO DAILY Qty: 30 0RF
propranolol 20 mg Tablet
20 mg PO DAILY Qty: 30 0RF
magnesium oxide 400 mg magnesium Tablet
400 mg PO DAILY Qty: 30 0RF
Discontinued
potassium 99 mg Tablet
99 mg PO DAILY
Discharge Orders:
Discharge Patient (As Directed); Ordered 02/09/24
Ordered By: Robel Clark
Discharge Date and Time
Print Language: MONTENEGRIN
[2024-02-09 09:30] LABS: Phosphatidylserine Ab, IgA 3 APS (0-19); Phosphatidylserine Ab, IgG 0 GPS (0-15); Phosphatidylserine Ab, IgM 7 MPS (0-21)
[2024-02-09 09:37] LABS: Blood Urea Nitrogen 26 mg/dl (7-17); Calcium 9.2 mg/dl (8.4-10.2); Carbon Dioxide 28 mmol/L (22-30); Chloride 103 mmol/L (98-107); Estimated Creatinine Clearance 68 ml/min; Glucose 160 mg/dl (70-99); Phosphorus 1.8 mg/dl (2.5-4.5); Potassium 3.3 mmol/L (3.5-5.1); Sodium 141 mmol/L (135-145); eGFR > 60.00
--- NOTE | 2024-02-09 10:20 | W.PN.HOSP.TC ---
Today's Communication/Plan
-
.
Assessment / Plan
Assessment / Plan
Ischemic infarct of the corpus callosum:
- Repeat MRI of brain and CT today 02/09/2024
- Consider changing statin to repatha
- MRI of brain shows a infarct at the corpus callosum
- Physiatry consulted
- Aspirin/ clopidogrel for 21 days, then just aspirin
- PT/OT state they would like patient to go to acute rehab when medically stable
- echo normal
- CTA normal
- Sensation intact, Lower left extremity weakness compared to right
- Antiphospholipid antibody, protein C, protein S, immunological studies pending
Hypokalemia:
- Replete potassium, today 3.3
Hypophosphatemia:
- Repleted phosphate
Paraneoplastic syndrome?:
- follow neurology
- Started on IV steroids
Alcohol use disorder:
- Former drinker, quit 4 weeks ago
- Supplement with thiamine and folate.
Macrocytic Anemia:
- hb is 13.7, mcv 109
- Likely due to alcohol abuse, advised on cessation of further alcohol use
Elevated liver enzymes:
-AST, ALT trending down, continue to observe
- Likely due to fatty liver
Hypertension:
- Continue Amlodipine
Depression:
- Continue Escitalopram
Positive hepatits A infection:
-outpatient follow up with GI
pt rec ARU
Anticipated Discharge: Today
Subjective/Interval History
-
Date of Service: February 09, 2024
No overnight events.
No acute medical events.
Objective Data
-
Labs:
Laboratory Results
02/09/24 02/09/24
07:56 08:12
WBC 11.8 H
Hgb 11.6 L
Hct 32.7 L
Plt Count 257
Sodium 141
Potassium 3.3 L
Chloride 103
Carbon Dioxide 28
BUN 26 H
Creatinine 0.8
Glucose 160 H
Calcium 9.2
Vital Signs:
Vital Signs
Temp Pulse Resp BP Pulse Ox
98.6 F 98 18 132/93 99
02/09/24 07:36 02/09/24 07:36 02/09/24 07:36 02/09/24 07:36 02/09/24 07:36
I&O
02/08/24 02/09/24 02/10/24
06:59 06:59 06:59
Intake Total 1680 / 1680 720 / 720
Balance 1680 / 1680 720 / 720
Review of Systems
-
History Source: Patient
Constitutional: Denies Fever or Chills
EENT: Denies Blurry Vision or Eye Pain
Respiratory: Denies Cough or Wheezing
Cardiac: Denies Chest Pain, Diaphoresis, Palpitations, Syncope, PND or Orthopnea
Abdomen/GI: Denies Abdominal Pain, Nausea, Vomiting, Diarrhea or Constipated
Genitourinary: Denies Dysuria
Musculoskeletal: Reports Muscle Weakness (Lower extremities bilaterally ); Denies Joint Pain
Skin: Denies Itching or Rash
Neuro: Reports Weakness (Bilateral lower extremities) and Numbness (Bilateral lower extremities); Denies Dizzy
Physical Exam
-
Respiratory: Clear to Auscultation
Cardiac: Regular Rhythm and S1/S2
GI: Soft, Nontender, Nondistended and Normal Bowel Sounds
Genito-urinary: No Costovertebral Tender; Negative Costovertebral Angle Tend
Musculoskeletal: No Cyanosis and No Edema
Skin: Warm and Dry
Neuro: Awake, Alert, Oriented, AO x 3, No Motor Deficits and Other (weakness in left lower extremity compared to right, proprioception decreased in both hands); Negative No Sensory Deficits or DTR's Intact & Symmetrica
Data Reviewed
-
Medical Tests (Nuc Med, Echo etc): Image personally visualized and interpreted and Discussed with Physician
Labs: Labs Reviewed by me and Discussed with Physician
[2024-02-09] MEDS: KCL ELIXIR 40 MEQ PO (10:56)
[2024-02-09] MEDS: POTASSIUM PHOSPHATE 259.0909 MEQ IV (10:57)
[2024-02-09 10:59] LABS: Creatine Phosphokinase < 20 U/L (30-135)
--- NOTE | 2024-02-09 11:55 | W.PN.NEURO.1 ---
Today's Communication / Plan
-
.
Neuro Assessment/Plan
Assessment
EMG negative ruling out GBS.
MRI brain 02/04/2024
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 This was reread by another radiologist who suggested that there might be cytotoxic edema
MRI c-spine 02/04/2024
Multilevel degenerative changes of the cervical spine as detailed, worst at C5-6 where disc and uncovertebral/facet disease contribute to mild spinal canal neural foraminal stenosis at this level.
Limited exam from patient motion artifact; however, no convincing MR evidence for spinal cord abnormality/transverse myelitis.
MRI-T-spine/MRI L-spine 02/04/2024
Chronic mild degenerative changes of the thoracic spine and lumbar spine. No MRI evidence for cord signal alteration. No evidence for significant spinal canal stenosis or neuroforaminal stenosis.
CTA head and Neck normal
Echocardiogram is unremarkable
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 Subsequently, after MRI findings there was a suggestion of acute infarct involving the
splenium of the corpus callosum producing symptoms.
As the reading of the MRI has been questioned, differential now includes possible paraneoplastic syndrome of unclear etiology since EMG is normal
Plan
Due to the unclear nature of the patient's weakness and lack of clarity regarding the splenium of the corpus callosum lesion, initiate methylprednisolone 1 g IV daily x 3 days started 02/06/2024
Initiated then stopped immunoglobulin, would restart 4 doses if continued worsening despite all testing negative for AIDP/GBS
Initiated and continue ASA 81 mg daily
Initiated atorvastatin 20 mg, low-dose due to relative elevation of LFTs
Completed thiamine 100 mg daily, restarting
continue B12 supplement
Increase pregabalin from 100 mg to 150 mg TID due to potentially better control over sensation discomfort
continue Rehabilitation evaluations
Await additional labs for possible etiology of stroke as cause unclear at this time
All questions answered.
Will continue to follow patient.
CSF Glucose 80 mg/dl H 02/03/24 16:20 Lab
CSF Total Protein 72 mg/dl H 02/03/24 16:20 Lab
CSF Appearance Clear 02/03/24 16:20 Lab
CSF Color Colorless 02/03/24 16:20 Lab
CSF WBC 1 mm^3 02/03/24 16:20 Lab
CSF RBC 134 mm^3 02/03/24 16:20 Lab
CSF Cell Count Tube # 4 02/03/24 16:20 Lab
Total Protein 7.5 g/dl 02/04/24 07:02 Lab
Triglycerides 271 mg/dl H 02/04/24 07:02 Lab
TSH (Reflex) 0.68 uIU/ml 02/04/24 07:02 Lab
PTH Intact 13.8 pg/ml 02/04/24 07:02 Lab
Subjective/Objective
Subjective Data
Date of Service: February 09, 2024
Neurology Follow Up Note.
Ms. Tiwari reports no new complaints.
Brain MRI was consistent with cytotoxic lesion of the corpus callosum.
PMH: HTN, CKD, GERD, LLL pulmonary nodule, hepatic steatosis, nephrolithiasis.
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
FH:no history of neuromuscular disease
All:NKDA
ROS:Constitutional: Negative. Negative for chills, fever and unexpected weight change.
HENT: Negative for ear pain, hearing loss, tinnitus and trouble swallowing.
Eyes: Negative. Negative for photophobia, pain and visual disturbance.
Respiratory: positive for dyspnea on exertion
Cardiovascular: Negative for chest pain, palpitations and leg swelling.
Gastrointestinal: Negative for abdominal pain and vomiting.
Endocrine: Negative. Negative for cold intolerance.
Genitourinary: Negative for dysuria, flank pain and urgency.
Musculoskeletal: Negative for back pain, gait problem, neck pain and neck stiffness.
Skin: Negative for rash.
Allergic/Immunologic: Negative. Negative for immunocompromised state.
Neurological: Positive for leg weakness, myalgias, distal paresthesias
Psychiatric/Behavioral: Negative for behavioral problems, confusion and hallucinations.
General: Well developed. In no acute distress.
Cardio: Regular rate and rhythm without murmur. Extremities are without cyanosis or edema.
Neuro:
Mental Status: Alert, oriented to person, place, and date. Normal attention and recall. Good fund of knowledge. Follows complex requests across the midline. Comprehension, naming, and repetition intact. Immediate and delayed recall 3/3.
Cranial Nerves: . Pupils are equally round and reactive to light. EOMs full. Visual dillard full to confrontation. No ptosis. No nystagmus. V1-V3 intact to light touch and pinprick bilaterally, symmetric. Face symmetric. Normal hearing AU.
The palate elevated well. SCMs and traps 5/5. Tongue midline. No dysarthria.
Motor: bl quadrs, gastrocnemius, TA hypotrophy. No pronator or arm drift. Strength 5/5 throughout except for proximal symmetric lower greater than upper weakness (bilateral iliopsoas 4 -/5, bilateral delts/tric biceps 4/5, neck flexors 5-/5. No
clonus. Normal finger flexors strength.
Reflexes: 2+ throughout the upper extremities and 0 knees. 0/2 in AJs. Plantar responses flexor bilaterally.
Sensory: Reduced vibration at the toes and ankles.
Coordination: No dysmetria or tremor.
Gait: deferred
Assessment and Plan:
I. Subacute proximal myopathy involving lower and upper extremities. Differential diagnosis includes inflammatory versus toxic, less likely metabolic, dystrophic or mitochondrial.
II. 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 Differential diagnosis includes metabolic, less likely toxic, neoplastic, vascular.
III. Clinical distal symmetric large fiber polyneuropathy based on symptoms and areflexia in lower extremities.
-Continue telemetry monitoring
-Left quadriceps (rectus femoris) biopsy to look for�muscle fiber necrosis, degeneration, regeneration, and an inflammatory cell infiltrate
-Avoid myotoxins (statins, alcohol)
-Continue thiamine 100 mg QD
-OP rheumatology consult
-D/c ASA and Plavix.
-Check ammonia, serum ceruloplasmin, copper
-Continue PT
-DVT prophylaxis.
-OP neurology follow up in 1 week.
3
I personally reviewed all radiology and labs along with past medical records pertinent to current medical problems. Total time spent in patient care is 45 minutes.
Thank you for allowing us to participate in the care of this patient. Please do not hesitate to contact us with any questions or concerns.
Objective Data
Vital Signs
Temp Pulse Resp BP Pulse Ox
37.0 C 98 18 132/93 99
02/09/24 07:36 02/09/24 07:36 02/09/24 07:36 02/09/24 07:36 02/09/24 07:36
Lab Results
02/09/24 08:12
02/09/24 07:56
PT 13.9 Sec (11.4-14.6) 02/04/24 07:02
INR 1.02 02/04/24 07:02
APTT 37.2 Sec (23.4-35.0) H 02/04/24 07:02
Sodium 141 mmol/L (135-145) 02/09/24 07:56
Potassium 3.3 mmol/L (3.5-5.1) L 02/09/24 07:56
BUN 26 mg/dl (7-17) H 02/09/24 07:56
Glucose 160 mg/dl (70-99) H 02/09/24 07:56
Calcium 9.2 mg/dl (8.4-10.2) 02/09/24 07:56
Phosphorus 1.8 mg/dl (2.5-4.5) L 02/09/24 07:56
LDL Cholesterol, Calc 143 mg/dl 02/04/24 07:02
Vitamin B12 740 pg/ml (239-931) 02/04/24 07:02
Patient Allergies
adhesive Allergy (Verified 02/03/24 10:47)
Rash
Vital Signs and Labs
-
Vital Signs and Labs:
Vital Signs
Temp Pulse Resp BP Pulse Ox
37.0 C 98 18 132/93 99
02/09/24 07:36 02/09/24 07:36 02/09/24 07:36 02/09/24 07:36 02/09/24 07:36
Lab Results
02/09/24 08:12
02/09/24 07:56
PT 13.9 Sec (11.4-14.6) 02/04/24 07:02
INR 1.02 02/04/24 07:02
APTT 37.2 Sec (23.4-35.0) H 02/04/24 07:02
Sodium 141 mmol/L (135-145) 02/09/24 07:56
Potassium 3.3 mmol/L (3.5-5.1) L 02/09/24 07:56
BUN 26 mg/dl (7-17) H 02/09/24 07:56
Glucose 160 mg/dl (70-99) H 02/09/24 07:56
Calcium 9.2 mg/dl (8.4-10.2) 02/09/24 07:56
Phosphorus 1.8 mg/dl (2.5-4.5) L 02/09/24 07:56
LDL Cholesterol, Calc 143 mg/dl 02/04/24 07:02
Vitamin B12 740 pg/ml (337-235) 02/04/24 07:02
Medications
-
Medications:
Generic Name Dose Route Start Last Admin
Trade Name Freq PRN Reason Stop Dose Admin
Acetaminophen 650 mg 02/03/24 20:00 02/09/24 11:59
Acetaminophen 325 Mg Tablet PO 03/02/24 19:59 650 mg
Q4HWA NAVIN Administration
Amlodipine Besylate 10 mg 02/04/24 08:00 02/09/24 08:15
Amlodipine 10 Mg Tablet PO 03/03/24 07:59 10 mg
DAILY NAVIN Administration
Ascorbic Acid 250 mg 02/04/24 08:00 02/09/24 08:16
Ascorbic Acid 250 Mg Tablet PO 03/03/24 07:59 250 mg
DAILY NAVIN Administration
Atorvastatin Calcium 20 mg 02/05/24 18:00 02/08/24 18:04
Atorvastatin (Lipitor) 20 Mg Tablet PO 03/04/24 17:59 20 mg
QPM NAVIN Administration
Cyanocobalamin 1,000 mcg 02/04/24 08:00 02/09/24 08:16
Cyanocobalamin 1,000 Mcg Tablet PO 03/03/24 07:59 1,000 mcg
DAILY NAVIN Administration
Enoxaparin Sodium 40 mg 02/03/24 18:00 02/08/24 18:04
Enoxaparin Sodium 40 Mg/0.4 Ml Syringe SC 03/02/24 17:59 40 mg
QPM NAVIN Administration
Famotidine 20 mg 02/03/24 19:56 02/07/24 17:01
Famotidine 20 Mg Tablet PO 03/02/24 19:55 20 mg
DAILYPRN PRN Administration
heartburn
Potassium Phosphate 40 meq/ 259.0909 mls @ 64.773 mls/hr 02/09/24 10:22 02/09/24 10:57
Sodium Chloride IV 02/09/24 14:21 259.0909 mls
NOW STA Administration
Magnesium 84 mg 02/04/24 08:00 02/09/24 08:15
Magnesium Lactate 84 Mg Tablet PO 03/03/24 07:59 84 mg
DAILY NAVIN Administration
Melatonin 10 mg 02/06/24 22:00 02/08/24 22:22
Melatonin 5 Mg Tablet PO 03/05/24 21:59 10 mg
HS NAVIN Administration
Polyethylene Glycol 17 grams 02/03/24 16:51 02/08/24 08:25
Polyethylene Glycol Powder 17 Grams Packet PO 03/02/24 16:50 17 grams
DAILYPRN PRN Administration
constipation
Pregabalin 150 mg 02/07/24 16:00 02/09/24 08:15
Pregabalin 75 Mg Capsule PO 03/06/24 15:59 150 mg
TID NAVIN Administration
Propranolol HCl 20 mg 02/04/24 08:00 02/09/24 08:16
Propranolol 20 Mg Regular Release Tablet PO 03/03/24 07:59 20 mg
DAILY NAVIN Administration
Senna/Docusate Sodium 1 tablet 02/03/24 16:51 02/07/24 22:28
Docusate W/Senna (Kathie-Colace) Tablet PO 03/02/24 16:50 1 tablet
BIDPRN PRN Administration
constipation
Sodium Chloride 0 flush 02/03/24 19:00 02/06/24 13:11
Sodium Chloride 0.9% (Flush) Syringe IV 03/02/24 18:59 2 flush
PER PROTOCOL NAVIN Administration
Thiamine HCl 100 mg 02/09/24 13:00
Thiamine 100 Mg Tablet PO 03/08/24 12:59
DAILY NAVIN
Home Medications
-
Home Medications
famotidine 20 mg tablet (Zantac-360 (famotidine)) 20 mg PO DAILYPRN PRN heartburn 12/15/22
propranolol 20 mg tablet 20 mg PO DAILY 12/15/22
acetaminophen 325 mg tablet (Tylenol) 650 mg PO Q6HPRN PRN mild pain 02/03/24
amlodipine 10 mg tablet 10 mg PO DAILY 02/03/24
ascorbic acid (vitamin C) 250 mg tablet (Vitamin C) 250 mg PO DAILY 02/03/24
cyanocobalamin (vitamin B-12) 1,000 mcg tablet 1,000 mcg PO DAILY 02/03/24
magnesium oxide 400 mg PO DAILY 02/03/24
potassium 99 mg tablet 99 mg PO DAILY 02/03/24
pregabalin 75 mg capsule 150 mg (2 x 75 mg) PO TID #30 caps 02/09/24
--- NOTE | 2024-02-09 12:49 | W.PN.HOSP.TC ---
Today's Communication/Plan
-
see bold
Assessment / Plan
Assessment / Plan
I saw and evaluated the patient. I reviewed the resident�s note and agree with findings and plan as documented in the resident�s note.
Reports bilateral lower extremity paresthesias, especially when she lays down. States she was able to walk with a walker.
Gen: NAD, AAOx3.
Eyes: EOMI, PERRLA, no scleral icterus.
Neck: supple.
CV: remains RRR, +S1/S2, no m/r/g.
Resp: remains CTAB, no rales, wheezes, or rhonchi.
Abd: +BS, soft, NT, ND
Skin: No rashes.
Neuro: CN 2-12 intact, 4/5 strength in both LEs.
Psych: Normal mood and affect.
02/04/24 03:30 Blood/Venous Blood Culture - Final
No Growth - Final Report
02/03/24 19:43 Blood/Venous Blood Culture - Final
No Growth - Final Report
02/03/24 16:20 Csf CSF Culture - Final
No Growth After 5 Days - Final Report
02/03/24 16:20 Csf Gram Stain - Final
02/04/24 06:24 Urine Urine Culture - Final
02/03/24 14:34 Urine Urine Culture - Final
Escherichia coli
02/03/24 16:14 Csf Meningitis/Encephalitis Panel (PCR) - Final
Abd U/S: Hepatic fatty infiltration. Stable. Trace gallbladder sludge. New. No secondary findings to suggest acute cholecystitis
MRI C-spine w/wo: Multilevel degenerative changes of the cervical spine as detailed, worst at C5-6 where disc and uncovertebral/facet disease contribute to mild spinal canal neural foraminal stenosis at this level. Limited exam from patient motion
artifact; however, no convincing MR evidence for spinal cord abnormality/transverse myelitis.
MRI T/L-spine: Chronic mild degenerative changes of the thoracic spine and lumbar spine. No MRI evidence for cord signal alteration. No evidence for significant spinal canal stenosis or neuroforaminal stenosis.
CTA head/neck: No evidence of acute intracranial abnormality. No significant narrowing or atherosclerotic disease involving the common carotid arteries, carotid bulbs, proximal internal carotid arteries, or cervical internal carotid arteries
bilaterally. Hypoplastic A1 segment of the left anterior cerebral artery, considered normal variation. No evidence for high-grade stenosis or large vessel occlusion of the intracranial circulation. Vertebral basilar anatomy as described with
bilateral relatively large caliber posterior inferior cerebellar artery branches arising from the superior vertebral arteries. No evidence for high-grade stenosis.
CT chest w/IV: Significant calcification involving the left anterior descending coronary artery. Please correlate with symptoms of and risk factors for coronary artery disease, with further workup as clinically appropriate. Thyroid gland appears
slightly enlarged including enlargement of the thyroid isthmus. No evidence for thyroid nodule. The lungs appear clear. Minimal calcific atherosclerotic disease of the aorta and origins of the great vessels.
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
MRI brain 02/09/24: There is decreased size and conspicuity of the focus of restricted diffusion within the splenium of corpus callosum which now measures 8mm, previously 12 mm and is favored to represent evolving cytotoxic lesion of the corpus
callosum. No new acute intracranial abnormality.
Acute/subacute CVA:
-presented with ascending B/L paraesthesias and ambulatory dysfunction after vaccine admin at the beginning of November
-s/p LP on admission: gluc/prot elevated, 1WBC. Meningitis/encephalitis panel negative.
-regarding presenting symptoms, EMG was without evidence of AIDP. GBS currently ruled out. Pt was on IVIG which has been stopped.
-MRI spine without acute findings as above
-neuro following, discussed with Dr. Martinez extensively yesterday. Pt will need a muscle biopsy but the pt can have this done in the outpt setting. Will also need EEG with repetitive stimulation.
-Dr. Martinez has stopped the pt's ASA/Plavix. Will discuss this with Dr. Martinez further today.
-cont statin (increase dose for low high LDL)
Other problems:
Essential HTN: cont Propranolol/Norvasc
Transaminitis, mild, likely related to fatty liver
Alcohol use disorder: cont thiamine/folate.
Macrocytic anemia, likely due to alcohol use
HAV POS: outpt GI f/u
NIDA, mild, resolved
Hypokalemia, replete
Hypophosphatemia, replete
FULL/Lovenox
Total time spent on today's encounter was 52 minutes which included time spent in counseling the patient/family regarding diagnosis and treatment plan as listed above, goals of care, and symptom management. Case was discussed with nursing staff,
specialists, and care coordinators/case management. All labs and imaging personally reviewed by me. Remainder the time spent in detailed review of previous records, lab data, imaging, and other medical provider documentation.
Anticipated Discharge: Within 24 hours
Subjective/Interval History
-
Date of Service: February 09, 2024
Patient feels that due to activity her lower extremities are weaker than yesterday.
Objective Data
-
Labs:
Laboratory Results
02/09/24 02/09/24
07:56 08:12
WBC 11.8 H
Hgb 11.6 L
Hct 32.7 L
Plt Count 257
Sodium 141
Potassium 3.3 L
Chloride 103
Carbon Dioxide 28
BUN 26 H
Creatinine 0.8
Glucose 160 H
Calcium 9.2
Vital Signs:
Vital Signs
Temp Pulse Resp BP Pulse Ox
98.6 F 98 18 132/93 99
02/09/24 07:36 02/09/24 07:36 02/09/24 07:36 02/09/24 07:36 02/09/24 08:00
I&O
02/08/24 02/09/24 02/10/24
06:59 06:59 06:59
Intake Total 1680 / 1680 720 / 720
Balance 1680 / 1680 720 / 720
[2024-02-09 12:51] LABS: Ammonia < 9 umol/L (9-30)
--- NOTE | 2024-02-09 13:25 | CM ---
Addendum entered by Clotilde Paz 02/09/24 13:48:
Per physician resident, Dr. Leiva will hold d/c until tomorrow
Beth made aware
Original Note:
Chart reviewed. Pt cont to need acute rehab
[facility] able to accept pt today
Per hospitalist, pt is medically stable for d/c to rehab
Auth initiated w/ [facility]. Auth approved for 7 days, beginning 02/08 NRD 02/14
Auth ref # [id number]
Updated Beth, agreeable for pt to admit today
Sukhdeep-
Report: [phone]

Plan: [facility] today
--- NOTE | 2024-02-09 15:00 | W.PN.UPDATE ---
Update Note
Progress Note Update
Case discussed over the phone with Dr. Martinez. At this time, based on the repeat MRI of the brain, acute/subacute CVA has been ruled out. This is why aspirin and Plavix were stopped earlier today. Also, Dr. Martinez has consulted general surgery
for a muscle biopsy. Disposition pending eval by surgery. RN updated.
[2024-02-09 15:12] VITALS: BP 116/82
--- NOTE | 2024-02-09 16:18 | W.PN.SURGUPD ---
Surgical Update
Surgical Update
Spoke with Neurology about desire for muscle biopsy. Patient with uncertain cause for acute onset bl LE weakness. Patient is non-ambulatory. Recent stroke of the corpus callosum in the differential. Neurology requesting biopsy of the quadriceps
muscle to aid in diagnosis and treatment. Patient with recent dosage of Aspirin and Plavix. To allow for washout and for logistical planning we will plan on biopsy on Thursday (02/11). Diet per primary, NPO PM on 02/10. Continue to hold ASA and
Plavix. Formal consult to follow.
[2024-02-09] MEDS: LOVENOX 40 MG SC (17:37)
[2024-02-09] MEDS: LIPITOR 20 MG PO (17:37)
[2024-02-09] MEDS: ROXICODONE 5 MG PO (18:50)
[2024-02-09] MEDS: MELATONIN 10 MG PO (22:11)
[2024-02-09 23:43] VITALS: BP 124/90
[2024-02-10] MEDS: TYLENOL 650 MG PO ×6 (04:08→23:33)
[2024-02-10 07:06] VITALS: BP 139/90
--- NOTE | 2024-02-10 07:55 | W.PN.HOSP.TC ---
Today's Communication/Plan
-
- follow up on status of muscle biospy
Assessment / Plan
Assessment / Plan
Bilateral lower extremity weakness/ paresthesias:
Paraneoplastic syndrome?:
- patient is still scheduled for a muscle biospy at [facility]
- follow neurology
- IV steroids stopped after 3 doses b/c no resolution of symptoms
- IVIG discontinued
Ischemic infarct of the corpus callosum ( ruled out):
- Aspirin/ plavix discontinued
- Repeat MRI of brain and CT today 02/09/2024 findings ruled out stroke
- MRI of brain shows a infarct at the corpus callosum
- Physiatry consulted
- PT/OT state they would like patient to go to acute rehab when medically stable
- echo normal
- CTA normal
- Sensation intact, Lower left extremity weakness compared to right
Hypokalemia:
- Replete potassium, today 3.3
Hypophosphatemia:
- Repleted phosphate
Alcohol use disorder:
- Former drinker, quit 4 weeks ago
- Supplement with thiamine and folate.
Macrocytic Anemia:
- hb is 13.7, mcv 109
- Likely due to alcohol abuse, advised on cessation of further alcohol use
Elevated liver enzymes:
-AST, ALT trending down, continue to observe
- Likely due to fatty liver
- outpatient GI
Hypertension:
- Continue Amlodipine
Depression:
- Continue Escitalopram
Positive hepatits A infection:
-outpatient follow up with GI
DVT ppx: lovenox
Full code
Anticipated Discharge: Within 24 hours
Subjective/Interval History
-
Date of Service: February 10, 2024
no overnight events.
No acute medical problems.
Still has pain in her bilateral lower extremities that she describes as a 9/10 that starts in both her feet and radiates up to her legs.
Objective Data
-
Labs:
Laboratory Results
02/10/24
06:00
WBC Pending
Hgb Pending
Hct Pending
Plt Count Pending
Sodium Pending
Potassium Pending
Chloride Pending
Carbon Dioxide Pending
BUN Pending
Creatinine Pending
Glucose Pending
Calcium Pending
Vital Signs:
Vital Signs
Temp Pulse Resp BP Pulse Ox
98.3 F 88 18 139/90 98
02/10/24 07:06 02/10/24 07:06 02/10/24 07:06 02/10/24 07:06 02/10/24 07:06
I&O
02/09/24 02/10/24 02/11/24
06:59 06:59 06:59
Intake Total 720 / 720 600 / 600
Balance 720 / 720 600 / 600
Review of Systems
-
History Source: Patient
Constitutional: Denies Fever or Chills
EENT: Denies Blurry Vision or Eye Pain
Respiratory: Denies Cough or Wheezing
Cardiac: Denies Chest Pain, Diaphoresis, Palpitations, Syncope, PND or Orthopnea
Abdomen/GI: Denies Abdominal Pain, Nausea, Vomiting, Diarrhea or Constipated
Genitourinary: Denies Dysuria
Musculoskeletal: Reports Muscle Pain (bilateral lower extremities) and Muscle Weakness (Lower extremities bilaterally ); Denies Joint Pain
Skin: Denies Itching or Rash
Neuro: Reports Weakness (Bilateral lower extremities) and Numbness (Bilateral lower extremities, and upper bilateral extremities); Denies Dizzy
Physical Exam
-
Respiratory: Clear to Auscultation
Cardiac: Regular Rhythm and S1/S2
GI: Soft, Nontender, Nondistended and Normal Bowel Sounds
Genito-urinary: No Costovertebral Tender; Negative Costovertebral Angle Tend
Musculoskeletal: No Cyanosis and No Edema
Skin: Warm and Dry
Neuro: Awake, Alert, Oriented, AO x 3, No Motor Deficits and Other (weakness in left lower extremity compared to right, bilateral decreased deep tendon reflexes); Negative No Sensory Deficits or DTR's Intact & Symmetrica
Data Reviewed
-
Medical Tests (Nuc Med, Echo etc): Image personally visualized and interpreted and Discussed with Physician
Labs: Labs Reviewed by me and Discussed with Physician
[2024-02-10] MEDS: LYRICA 150 MG PO ×3 (07:58→21:06)
[2024-02-10] MEDS: MAG-TAB SR 84 MG PO (07:58)
[2024-02-10] MEDS: INDERAL 20 MG PO (07:59)
[2024-02-10] MEDS: VITAMIN B1 100 MG PO (07:59)
[2024-02-10] MEDS: VITAMIN C 250 MG PO (07:59)
[2024-02-10] MEDS: NORVASC 10 MG PO (07:59)
[2024-02-10] MEDS: VITAMIN B-12 1000 MCG PO (08:00)
[2024-02-10 08:58] LABS: Hemoglobin 11.4 g/dL (12.0-16.0); Mean Corp Hgb Conc. 34.5 g/dL (33.0-37.0); Mean Corpuscular Hgb 37.7 pg (27.0-31.0); Mean Corpuscular Volume 109.3 fL (81.0-99.0); Mean Platelet Volume 11.7 fL (7.4-10.4); Platelet Count 279 10^3/uL (130-400); Red Blood Cell Count 3.02 10^6/uL (4.20-5.40); Red Cell Dist. Width 12.7 % (11.5-14.5); White Blood Cell Count 9.4 10^3/uL (4.8-10.8)
[2024-02-10 09:44] LABS: Blood Urea Nitrogen 26 mg/dl (7-17); Calcium 9.2 mg/dl (8.4-10.2); Carbon Dioxide 26 mmol/L (22-30); Chloride 100 mmol/L (98-107); Estimated Creatinine Clearance 54 ml/min; Glucose 210 mg/dl (70-99); Potassium 3.9 mmol/L (3.5-5.1); Sodium 139 mmol/L (135-145); eGFR > 60.00
--- NOTE | 2024-02-10 12:19 | CM ---
Chart reviewed. Pt's d/c was cancelled yesterday to [facility].
Per chart, pt is due to transfer to [facility] for a muscle biopsy. Per nurse, pt has been accepted for the transfer and is pending a bed, uncertain at this time when [facility] will have a bed available. Pt is due to return to after biopsy is completed. Per
nurse, pt may get biopsy done at if [facility] is unable to offer bed in a timely manner.
Per nurse, pt is upset that she is waiting around and needs some support at this time.
CM met w/ pt at bedside w/ mother. Pt expresses frustration about waiting around for a bed at [facility] and asking why she cannot go to [facility] and get biopsy done at [facility] as OP. CM explained it would be a bit difficult to arrange a hospital transfer when
she is no longer in the hospital. Pt stated she is staying one more day as she does not want to wait around any longer. Pt expressed concerned re her insurance and remaining in the hospital is going to cost her more out of pocket costs as her
deductible is high. CM provided support at this time, acknowledging pt's current feelings.
[facility] updated. Will obtain new auth as needed
Plan: Pending [facility] transfer
[2024-02-10] MEDS: MOTRIN 400 MG PO ×2 (12:50→18:52)
[2024-02-10 14:21] VITALS: BP 96/64; PULSE 91
[2024-02-10 14:38] VITALS: BP 94/67; PULSE 89; O2SAT 97
[2024-02-10 15:35] VITALS: BP 112/73
[2024-02-10] MEDS: LIPITOR 20 MG PO (17:09)
[2024-02-10] MEDS: LOVENOX 40 MG SC (17:10)
--- NOTE | 2024-02-10 18:23 | PTCARENOTE ---
No need for further NIH Stroke scale per md, no stroke per neurology asa and plavix d/c
[2024-02-10 19:03] LABS: PT (F2) G20210A Variant Negative; Pt Gene Variant-PCR Specimen Whole Blood
[2024-02-10] MEDS: MELATONIN 10 MG PO (21:06)
[2024-02-10 23:50] VITALS: BP 109/71
[2024-02-11 01:16] LABS: Angiotensin-1-converting Enzym 39 U/L (16-85)
[2024-02-11 01:22] LABS: Aldolase 5.3 U/L (1.2-7.6)
[2024-02-11 01:22] LABS: Cardiolipin Igg Antibody <10 GPL (<=14)
[2024-02-11] MEDS: TYLENOL PO (04:43)
--- NOTE | 2024-02-11 05:00 | DOWNTIME ---
There was a [employer] Downtime on 02/11/2024 from 0200 to 02/11/2024 at 0325 . Downtime documentation of patient's care, including medication administrations, has been reconciled in the electronic record per guidelines. Refer to the
patient's paper chart under the miscellaneous tab to see printed paper medication records and downtime forms.
[2024-02-11 07:05] VITALS: BP 125/84
[2024-02-11 07:20] LABS: Cardiolipin IgA Antibody <10 APL (<=11)
[2024-02-11 08:37] LABS: Jo-1 Antibodies 2 AU/mL (0-40); SSA 52 (Ro)(ENA) Ab, IgG 20 AU/mL (0-40); SSA 60 (Ro)(ENA) Ab, IgG 18 AU/mL (0-40); SSB (La)(ENA) Ab, IgG 2 AU/mL (0-40)
--- NOTE | 2024-02-11 08:41 | W.PN.UPDATE ---
Update Note
Progress Note Update
I saw and evaluated the patient. I reviewed the resident�s note and agree with findings and plan as documented in the resident�s note.
No new complaints. Still with pain in the lower extremities.
Gen: NAD, AAOx3.
Eyes: EOMI, PERRLA, no scleral icterus.
Neck: supple.
CV: continues to remain RRR, +S1/S2, no m/r/g.
Resp: continues to remain CTAB, no rales, wheezes, or rhonchi.
Abd: +BS, soft, NT, ND
Skin: No rashes.
Neuro: remains CN 2-12 intact, 4/5 strength in both LEs.
Psych: Normal mood and affect.
02/04/24 03:30 Blood/Venous Blood Culture - Final
No Growth - Final Report
02/03/24 19:43 Blood/Venous Blood Culture - Final
No Growth - Final Report
02/03/24 16:20 Csf CSF Culture - Final
No Growth After 5 Days - Final Report
02/03/24 16:20 Csf Gram Stain - Final
02/04/24 06:24 Urine Urine Culture - Final
02/03/24 14:34 Urine Urine Culture - Final
Escherichia coli
02/03/24 16:14 Csf Meningitis/Encephalitis Panel (PCR) - Final
Abd U/S: Hepatic fatty infiltration. Stable. Trace gallbladder sludge. New. No secondary findings to suggest acute cholecystitis
MRI C-spine w/wo: Multilevel degenerative changes of the cervical spine as detailed, worst at C5-6 where disc and uncovertebral/facet disease contribute to mild spinal canal neural foraminal stenosis at this level. Limited exam from patient motion
artifact; however, no convincing MR evidence for spinal cord abnormality/transverse myelitis.
MRI T/L-spine: Chronic mild degenerative changes of the thoracic spine and lumbar spine. No MRI evidence for cord signal alteration. No evidence for significant spinal canal stenosis or neuroforaminal stenosis.
CTA head/neck: No evidence of acute intracranial abnormality. No significant narrowing or atherosclerotic disease involving the common carotid arteries, carotid bulbs, proximal internal carotid arteries, or cervical internal carotid arteries
bilaterally. Hypoplastic A1 segment of the left anterior cerebral artery, considered normal variation. No evidence for high-grade stenosis or large vessel occlusion of the intracranial circulation. Vertebral basilar anatomy as described with
bilateral relatively large caliber posterior inferior cerebellar artery branches arising from the superior vertebral arteries. No evidence for high-grade stenosis.
CT chest w/IV: Significant calcification involving the left anterior descending coronary artery. Please correlate with symptoms of and risk factors for coronary artery disease, with further workup as clinically appropriate. Thyroid gland appears
slightly enlarged including enlargement of the thyroid isthmus. No evidence for thyroid nodule. The lungs appear clear. Minimal calcific atherosclerotic disease of the aorta and origins of the great vessels.
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
MRI brain 02/09/24: There is decreased size and conspicuity of the focus of restricted diffusion within the splenium of corpus callosum which now measures 8mm, previously 12 mm and is favored to represent evolving cytotoxic lesion of the corpus
callosum. No new acute intracranial abnormality.
B/L LE paresthesias and weakness:
-presented with ascending B/L paraesthesias and ambulatory dysfunction after vaccine admin at the beginning of November
-s/p LP on admission: gluc/prot elevated, 1WBC. Meningitis/encephalitis panel negative.
-regarding presenting symptoms, EMG was without evidence of AIDP. GBS currently ruled out. Pt was on IVIG which has been stopped.
-MRI spine without acute findings as above
-acute/subacute CVA has now been ruled out based on repeat MRI brain findings. ASA/Plavix stopped
-Currently the differential diagnosis for patient's subacute proximal myopathy of the upper and lower extremities is broad. The patient needs a muscle biopsy as well as EEG with repetitive stimulation. The patient has been accepted in transfer at
[place] for these studies.
-cont statin (increased dose for low high LDL)
Other problems:
Essential HTN: cont Propranolol/Norvasc
Transaminitis, mild, likely related to fatty liver
Alcohol use disorder: cont thiamine/folate.
Macrocytic anemia, likely due to alcohol use
HAV POS: outpt GI f/u
NIDA, mild, resolved
Hypokalemia, replete PRN
Hypophosphatemia, replete PRN
Patient's sister updated extensively at bedside.
FULL/Lovenox
[2024-02-11 08:43] LABS: Smith/RNP (ENA), IgG 3 Units (0-19)
[2024-02-11] MEDS: NORVASC 10 MG PO (09:38)
[2024-02-11] MEDS: INDERAL 20 MG PO (09:38)
[2024-02-11] MEDS: TYLENOL 650 MG PO ×3 (09:38→15:55)
[2024-02-11] MEDS: VITAMIN B-12 1000 MCG PO (09:39)
[2024-02-11] MEDS: MAG-TAB SR 84 MG PO (09:39)
[2024-02-11] MEDS: VITAMIN C 250 MG PO (09:39)
[2024-02-11] MEDS: LYRICA 150 MG PO ×2 (09:39→15:55)
[2024-02-11] MEDS: VITAMIN B1 100 MG PO (09:39)
--- NOTE | 2024-02-11 11:33 | W.PN.HOSP.TC ---
Today's Communication/Plan
-
- follow up on status of muscle biospy
Assessment / Plan
Assessment / Plan
Bilateral lower extremity weakness/ paresthesias:
Paraneoplastic syndrome?:
- patient is still scheduled for a muscle biospy at [facility]
- follow neurology
- IV steroids stopped after 3 doses b/c no resolution of symptoms
- IVIG discontinued
Ischemic infarct of the corpus callosum ( ruled out):
- Aspirin/ plavix discontinued
- Repeat MRI of brain and CT today 02/09/2024 findings ruled out stroke
- MRI of brain shows a infarct at the corpus callosum
- Physiatry consulted
- PT/OT state they would like patient to go to acute rehab when medically stable
- echo normal
- CTA normal
- Sensation intact, Lower left extremity weakness compared to right
Hypokalemia:
- Replete potassium, today 3.3
Hypophosphatemia:
- Repleted phosphate
Alcohol use disorder:
- Former drinker, quit 4 weeks ago
- Supplement with thiamine and folate.
Macrocytic Anemia:
- hb is 13.7, mcv 109
- Likely due to alcohol abuse, advised on cessation of further alcohol use
Elevated liver enzymes:
-AST, ALT trending down, continue to observe
- Likely due to fatty liver
- outpatient GI
Hypertension:
- Continue Amlodipine
Depression:
- Continue Escitalopram
Positive hepatits A infection:
-outpatient follow up with GI
DVT ppx: lovenox
Full code
Anticipated Discharge: Within 24 hours
Subjective/Interval History
-
Date of Service: February 11, 2024
no overnight events.
No acute medical problems.
Still has pain in her bilateral lower extremities that she describes as a 9/10 that starts in both her feet and radiates up to her legs.
Objective Data
-
Vital Signs:
Vital Signs
Temp Pulse Resp BP Pulse Ox
98.4 F 94 18 125/84 98
02/11/24 07:05 02/11/24 09:38 02/11/24 07:05 02/11/24 09:38 02/11/24 07:05
I&O
02/10/24 02/11/24 02/12/24
06:59 06:59 06:59
Intake Total 600 / 600 480 / 480
Balance 600 / 600 480 / 480
Review of Systems
-
History Source: Patient
Constitutional: Denies Fever or Chills
EENT: Denies Blurry Vision or Eye Pain
Respiratory: Denies Cough or Wheezing
Cardiac: Denies Chest Pain, Diaphoresis, Palpitations, Syncope, PND or Orthopnea
Abdomen/GI: Denies Abdominal Pain, Nausea, Vomiting, Diarrhea or Constipated
Genitourinary: Denies Dysuria
Musculoskeletal: Reports Muscle Pain (bilateral lower extremities) and Muscle Weakness (Lower extremities bilaterally ); Denies Joint Pain
Skin: Denies Itching or Rash
Neuro: Reports Weakness (Bilateral lower extremities) and Numbness (Bilateral lower extremities, and upper bilateral extremities); Denies Dizzy
Physical Exam
-
Respiratory: Clear to Auscultation
Cardiac: Regular Rhythm and S1/S2
GI: Soft, Nontender, Nondistended and Normal Bowel Sounds
Genito-urinary: No Costovertebral Tender; Negative Costovertebral Angle Tend
Musculoskeletal: No Cyanosis and No Edema
Skin: Warm and Dry
Neuro: Awake, Alert, Oriented, AO x 3, No Motor Deficits and Other (weakness in left lower extremity compared to right, bilateral decreased deep tendon reflexes); Negative No Sensory Deficits or DTR's Intact & Symmetrica
Data Reviewed
-
Medical Tests (Nuc Med, Echo etc): Image personally visualized and interpreted and Discussed with Physician
Labs: Labs Reviewed by me and Discussed with Physician
[2024-02-11] MEDS: MOTRIN 400 MG PO (11:54)
--- NOTE | 2024-02-11 12:25 | W.PN.NEURO.1 ---
Today's Communication / Plan
-
.
Subjective/Objective
Subjective Data
Date of Service: February 11, 2024
Neurology Follow Up Note.
Ms. Tiwari endorses worsening of right greater than left thigh pain. Continues to have left greater than right proximal weakness. Afebrile and normotensive.
Ms. Tiwari was accepted for medicine transfer for neuromuscular and rheumatology consultation.
Labs: NIR-normal
PMH: HTN, CKD, GERD, LLL pulmonary nodule, hepatic steatosis, nephrolithiasis, ETOH addiction
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
FH: no history of neuromuscular disease
All:NKDA
ROS:Constitutional: Negative. Negative for chills, fever and unexpected weight change.
HENT: Negative for ear pain, hearing loss, tinnitus and trouble swallowing.
Eyes: Negative. Negative for photophobia, pain and visual disturbance.
Respiratory: positive for dyspnea on exertion
Cardiovascular: Negative for chest pain, palpitations and leg swelling.
Gastrointestinal: Negative for abdominal pain and vomiting.
Endocrine: Negative. Negative for cold intolerance.
Genitourinary: Negative for dysuria, flank pain and urgency.
Musculoskeletal: Negative for back pain, gait problem, neck pain and neck stiffness.
Skin: Negative for rash.
Allergic/Immunologic: Negative. Negative for immunocompromised state.
Neurological: Positive for leg weakness, myalgias, distal paresthesias
Psychiatric/Behavioral: Negative for behavioral problems, confusion and hallucinations.
General: Well developed. In no acute distress.
Cardio: Regular rate and rhythm without murmur. Extremities are without cyanosis or edema.
Neuro:
Mental Status: Alert, oriented to person, place, and date. Normal attention and recall. Good fund of knowledge. Follows complex requests across the midline. Comprehension, naming, and repetition intact. Immediate and delayed recall 3/3.
Cranial Nerves: . Pupils are equally round and reactive to light. EOMs full. Visual dillard full to confrontation. No ptosis. No nystagmus. V1-V3 intact to light touch and pinprick bilaterally, symmetric. Face symmetric. Normal hearing AU.
The palate elevated well. SCMs and traps 5/5. Tongue midline. No dysarthria.
Motor: bl quadrs, gastrocnemius, TA hypotrophy. No pronator or arm drift. Strength 5/5 throughout except for proximal symmetric lower greater than upper weakness (bilateral iliopsoas 4 -/5, R DF 5-/5, bilateral delts/tric biceps 4/5, neck
flexors 5-/5. No clonus. Normal finger flexors strength.
Reflexes: 2+ throughout the upper extremities and 0 knees. 0/2 in AJs. Plantar responses flexor bilaterally.
Sensory: reduced vibration at the toes and ankles.
Coordination: Action BL hand tremor. No dysmetria
Gait: deferred
Assessment and Plan:
I. Subacute proximal myopathy involving lower and upper extremities. Differential diagnosis includes inflammatory versus toxic, less likely metabolic, dystrophic or mitochondrial.
II. 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 Differential diagnosis includes metabolic, less likely toxic, neoplastic, vascular.
III. Clinical distal symmetric large fiber polyneuropathy based on symptoms and areflexia in lower extremities.
IV. ETOH addiction
-Continue telemetry monitoring
-Left quadriceps (rectus femoris) biopsy to look for�muscle fiber necrosis, degeneration, regeneration, and an inflammatory cell infiltrate. Last dose of Solu-Medrol�02/08/2024.
-Avoid myotoxins (statins, alcohol)
-Continue thiamine 100 mg QD, pregabalin 150 mg 3 times daily
-Follow up ceruloplasmin, copper
-Continue PT
-Ibuprofen 2-400 mg every 12 hours.
-DVT prophylaxis.
-OP neurology follow up in 1 week.
-CSDs/TEds
-The case was discussed with patient's sister. All questions were answered.
I personally reviewed all radiology and labs along with past medical records pertinent to current medical problems. Total time spent in patient care is 35 minutes.
Thank you for allowing us to participate in the care of this patient. Please do not hesitate to contact us with any questions or concerns.
Objective Data
Vital Signs
Temp Pulse Resp BP Pulse Ox
36.9 C 94 18 125/84 98
02/11/24 07:05 02/11/24 09:38 02/11/24 07:05 02/11/24 09:38 02/11/24 07:05
Lab Results
02/10/24 08:29
02/10/24 08:29
PT 13.9 Sec (11.4-14.6) 02/04/24 07:02
INR 1.02 02/04/24 07:02
APTT 37.2 Sec (23.4-35.0) H 02/04/24 07:02
Sodium 139 mmol/L (135-145) 02/10/24 08:29
Potassium 3.9 mmol/L (3.5-5.1) 02/10/24 08:29
BUN 26 mg/dl (7-17) H 02/10/24 08:29
Glucose 210 mg/dl (70-99) H 02/10/24 08:29
Calcium 9.2 mg/dl (8.4-10.2) 02/10/24 08:29
Phosphorus 1.8 mg/dl (2.5-4.5) L 02/09/24 07:56
LDL Cholesterol, Calc 143 mg/dl 02/04/24 07:02
Vitamin B12 740 pg/ml (239-931) 02/04/24 07:02
Patient Allergies
adhesive Allergy (Verified 02/03/24 10:47)
Rash
Vital Signs and Labs
-
Vital Signs and Labs:
Vital Signs
Temp Pulse Resp BP Pulse Ox
36.9 C 94 18 125/84 98
02/11/24 07:05 02/11/24 09:38 02/11/24 07:05 02/11/24 09:38 02/11/24 07:05
Lab Results
02/10/24 08:29
02/10/24 08:29
PT 13.9 Sec (11.4-14.6) 02/04/24 07:02
INR 1.02 02/04/24 07:02
APTT 37.2 Sec (23.4-35.0) H 02/04/24 07:02
Sodium 139 mmol/L (135-145) 02/10/24 08:29
Potassium 3.9 mmol/L (3.5-5.1) 02/10/24 08:29
BUN 26 mg/dl (7-17) H 02/10/24 08:29
Glucose 210 mg/dl (70-99) H 02/10/24 08:29
Calcium 9.2 mg/dl (8.4-10.2) 02/10/24 08:29
Phosphorus 1.8 mg/dl (2.5-4.5) L 02/09/24 07:56
LDL Cholesterol, Calc 143 mg/dl 02/04/24 07:02
Vitamin B12 740 pg/ml (637-931) 02/04/24 07:02
Medications
-
Medications:
Generic Name Dose Route Start Last Admin
Trade Name Freq PRN Reason Stop Dose Admin
Acetaminophen 650 mg 02/03/24 20:00 02/11/24 09:38
Acetaminophen 325 Mg Tablet PO 03/02/24 19:59 650 mg
Q4HWA NAVIN Administration
Amlodipine Besylate 10 mg 02/04/24 08:00 02/11/24 09:38
Amlodipine 10 Mg Tablet PO 03/03/24 07:59 10 mg
DAILY NAVIN Administration
Ascorbic Acid 250 mg 02/04/24 08:00 02/11/24 09:39
Ascorbic Acid 250 Mg Tablet PO 03/03/24 07:59 250 mg
DAILY NAVIN Administration
Atorvastatin Calcium 20 mg 02/05/24 18:00 02/10/24 17:09
Atorvastatin (Lipitor) 20 Mg Tablet PO 03/04/24 17:59 20 mg
QPM NAVIN Administration
Cyanocobalamin 1,000 mcg 02/04/24 08:00 02/11/24 09:39
Cyanocobalamin 1,000 Mcg Tablet PO 03/03/24 07:59 1,000 mcg
DAILY NAVIN Administration
Enoxaparin Sodium 40 mg 02/03/24 18:00 02/10/24 17:10
Enoxaparin Sodium 40 Mg/0.4 Ml Syringe SC 03/02/24 17:59 40 mg
QPM NAVIN Administration
Famotidine 20 mg 02/03/24 19:56 02/07/24 17:01
Famotidine 20 Mg Tablet PO 03/02/24 19:55 20 mg
DAILYPRN PRN Administration
heartburn
Ibuprofen 400 mg 02/10/24 12:42 02/11/24 11:54
Ibuprofen 400 Mg Tablet PO 03/09/24 12:41 400 mg
Q6HPRN PRN Administration
leg pain
Magnesium 84 mg 02/04/24 08:00 02/11/24 09:39
Magnesium Lactate 84 Mg Tablet PO 03/03/24 07:59 84 mg
DAILY NAVIN Administration
Melatonin 10 mg 02/06/24 22:00 02/10/24 21:06
Melatonin 5 Mg Tablet PO 03/05/24 21:59 10 mg
HS NAVIN Administration
Polyethylene Glycol 17 grams 02/03/24 16:51 02/08/24 08:25
Polyethylene Glycol Powder 17 Grams Packet PO 03/02/24 16:50 17 grams
DAILYPRN PRN Administration
constipation
Pregabalin 150 mg 02/07/24 16:00 02/11/24 09:39
Pregabalin 75 Mg Capsule PO 03/06/24 15:59 150 mg
TID NAVIN Administration
Propranolol HCl 20 mg 02/04/24 08:00 02/11/24 09:38
Propranolol 20 Mg Regular Release Tablet PO 03/03/24 07:59 20 mg
DAILY NAVIN Administration
Senna/Docusate Sodium 1 tablet 02/03/24 16:51 02/07/24 22:28
Docusate W/Senna (Kathie-Colace) Tablet PO 03/02/24 16:50 1 tablet
BIDPRN PRN Administration
constipation
Sodium Chloride 0 flush 02/03/24 19:00 02/06/24 13:11
Sodium Chloride 0.9% (Flush) Syringe IV 03/02/24 18:59 2 flush
PER PROTOCOL NAVIN Administration
Thiamine HCl 100 mg 02/09/24 13:00 02/11/24 09:39
Thiamine 100 Mg Tablet PO 03/08/24 12:59 100 mg
DAILY NAVIN Administration
Home Medications
-
Home Medications
acetaminophen 325 mg tablet (Tylenol) 650 mg (2 x 325 mg) PO Q6HPRN PRN mild pain #30 tabs 02/09/24
amlodipine 10 mg tablet 10 mg PO DAILY #30 tabs 02/09/24
ascorbic acid (vitamin C) 250 mg tablet (Vitamin C) 250 mg PO DAILY #30 tabs 02/09/24
aspirin 81 mg chewable tablet 81 mg PO DAILY #30 tabs 02/09/24
atorvastatin 40 mg tablet 40 mg PO DAILY #30 tabs 02/09/24
clopidogrel 75 mg tablet 75 mg PO DAILY #30 tabs 02/09/24
cyanocobalamin (vitamin B-12) 1,000 mcg tablet 1,000 mcg PO DAILY #30 tabs 02/09/24
famotidine 20 mg tablet (Zantac-360 (famotidine)) 20 mg PO DAILYPRN PRN heartburn #30 tabs 02/09/24
magnesium oxide 400 mg PO DAILY #30 tabs 02/09/24
melatonin 5 mg tablet 10 mg (2 x 5 mg) PO HS #30 tabs 02/09/24
polyethylene glycol 3350 17 gram oral powder packet 17 g PO DAILYPRN PRN constipation #1 ea 02/09/24
pregabalin 75 mg capsule 150 mg (2 x 75 mg) PO TID #30 caps 02/09/24
propranolol 20 mg tablet 20 mg PO DAILY #30 tabs 02/09/24
sennosides 8.6 mg-docusate sodium 50 mg tablet 1 tab PO BIDPRN PRN constipation #30 tabs 02/09/24
[2024-02-11] MEDS: ROXICODONE 5 MG PO (13:40)
[2024-02-11 14:05] LABS: Rheumatoid Agglutinin Less Than 10 IU (<10 IU)
[2024-02-11 15:08] VITALS: BP 114/75
[2024-02-12 05:44] LABS: Ceruloplasmin 17 mg/dL (16-45)
[2024-02-12 07:39] LABS: Copper, Serum 74.7 ug/dL (80.0-155.0)
[2024-02-13 00:04] LABS: Purkinje Cell/Neuronal Nuc IgG None Detected (None Detected)
== END 2024-02-11 17:18 | disposition short-term general hospital (02) | DRG 92 ==
LOC: 4 EAST ACU 18:30
PROVIDERS: Nurse Practitioner Adult Health; Physician Assistant; Psychiatry & Neurology Neurology; Student in an Organized Health Care Education/Training Program; ADMITTING PHYSICIAN Hospitalist; ATTENDING PHYSICIAN Internal Medicine; CONSULT PHYSICIAN Physical Medicine & Rehabilitation; CONSULT PHYSICIAN Psychiatry & Neurology Neurology; EMERGENCY PHYSICIAN Emergency Medicine; FAMILY PHYSICIAN Nurse Practitioner Adult Health
PROC: 009U3ZX Drainage of Spinal Canal, Percutaneous Approach, Diagnostic (ICD-10-PCS; 2024-02-03)
PROC: 30233S1 Transfusion of Nonautologous Globulin into Peripheral Vein, Percutaneous Approach (ICD-10-PCS; 2024-02-04)
DX: G72.9 Myopathy, unspecified (principal); B15.9 Hepatitis A without hepatic coma; E87.1 Hypo-osmolality and hyponatremia; E87.20 Acidosis, unspecified; G62.9 Polyneuropathy, unspecified; I10 Essential (primary) hypertension; K21.9 Gastro-esophageal reflux disease without esophagitis; F32.A Depression, unspecified; E83.52 Hypercalcemia; F41.9 Anxiety disorder, unspecified; D53.9 Nutritional anemia, unspecified; E86.0 Dehydration; F10.10 Alcohol abuse, uncomplicated; E83.39 Other disorders of phosphorus metabolism; E05.00 Thyrotoxicosis with diffuse goiter without thyrotoxic crisis or storm; R73.9 Hyperglycemia, unspecified; E78.5 Hyperlipidemia, unspecified; G47.00 Insomnia, unspecified; K76.0 Fatty (change of) liver, not elsewhere classified; Z87.440 Personal history of urinary (tract) infections; Z79.899 Other long term (current) drug therapy
CPT/HCPCS: 51798; 62270; 70496; 70498; 70551; 70553; 71260; 72146; 72148; 72156; 74176; 76705; 80048; 80053; 80061; 81003; 81015; 81240; 82085; 82140; 82164; 82248; 82330; 82390; 82525; 82550; 82607; 82728; 82746; 82784; 82945; 83036; 83516; 83521; 83605; 83615; 83735; 83930; 83935; 83970; 84100; 84155; 84157; 84165; 84300; 84439; 84443; 85025; 85027; 85300; 85302; 85305; 85610; 85613; 85652; 85730; 86038; 86041; 86140; 86146; 86147; 86148; 86160; 86235; 86255; 86334; 86430; 86709; 87015; 87040; 87070; 87077; 87086; 87186; 87205; 87389; 87476; 87483; 89051; 93306; 95886; 95911; 96361; 96374; 96375; 96376; 97116; 97162; 97167; 97530; 97535; 99285; A9575; J1569; Q9967

== ENCOUNTER 2024-02-13 00:03 | Inpatient (IN) | payer BC, SELFPAY ==
[2024-02-13] VITALS (8 sets, daily range): BP systolic 97–144; BP diastolic 68–96; PULSE 88–90; O2SAT 97; BMI 27.1
--- NOTE | 2024-02-13 00:55 | HPS.HSE ---
Family Physician
-
Family Physician: INTERVIEWE UNKNOWN - PT NOT
Chief Complaint
-
LE paresthesias / weakness
History of Present Illness
Patient is a 53y F with PMH significant for hypertension and alcohol use disorder who presents to in transfer from [facility]. Patient was originally admitted to on 02/02 with complaints of significant LE paresthesias and weakness with complete
inability to walk. She was admitted and underwent extensive evaluation. See prior notes / data for details of that work-up.
Patient was transferred to [facility] on 02/10 with plan to undergo muscle biopsy and EEG with repetitive stimulation. Patient was evaluated at [facility] where repeat EEG revealed axonal sensory predominant polyneuropathy - consistent with her reported
symptoms of paresthesias. Neuromuscular consultants at [facility] did not feel muscle biopsy was necessary and none was performed.
Patient was accepted in transfer back to today for ongoing care. She notes that she is interested in continued PT at [facility] as was previously considered.
Patient denies any new complaints or concerns during her time at [facility]. She states that she has continued to work with PT and has been ambulating with a walker.
Medical History
Past Medical History
Past Medical History: Reports GERD, HTN, Renal Failure, Psychiatric (Depression) and Other (UTI)
Past Surgical History: Reports None
Social History
Tobacco: Non-smoker
Alcohol: Former (Drink 3 drinks a day for the past 10 years, recently quit 1 month ago)
Drug: None
Personal: Single
Living: Alone
Family History
Family History: Not pertinent
Allergies / Home Medications
Allergies reflects when Allergies were last updated in [facility].
Home Medications with original date entered in [facility]
Allergy/Medication List:
Allergies
Allergy/AdvReac Type Severity Reaction Status Date / Time
adhesive Allergy Rash Verified 02/03/24 10:47
Home Medications
acetaminophen 325 mg tablet (Tylenol) 650 mg (2 x 325 mg) PO Q6HPRN PRN mild pain #30 tabs 02/09/24
amlodipine 10 mg tablet 10 mg PO DAILY #30 tabs 02/09/24
ascorbic acid (vitamin C) 250 mg tablet (Vitamin C) 250 mg PO DAILY #30 tabs 02/09/24
aspirin 81 mg chewable tablet 81 mg PO DAILY #30 tabs 02/09/24
atorvastatin 40 mg tablet 40 mg PO DAILY #30 tabs 02/09/24
cyanocobalamin (vitamin B-12) 1,000 mcg tablet 1,000 mcg PO DAILY #30 tabs 02/09/24
famotidine 20 mg tablet (Zantac-360 (famotidine)) 20 mg PO DAILYPRN PRN heartburn #30 tabs 02/09/24
polyethylene glycol 3350 17 gram oral powder packet 17 g PO DAILYPRN PRN constipation #1 ea 02/09/24
pregabalin 75 mg capsule 150 mg (2 x 75 mg) PO TID #30 caps 02/09/24
propranolol 20 mg tablet 20 mg PO DAILY #30 tabs 02/09/24
melatonin 3 mg tablet 3 mg PO HS PRN Insomnia 02/13/24
thiamine HCl (vitamin B1) 100 mg tablet 100 mg PO DAILY 02/13/24
Review of Systems
-
History Source: Patient
A 12 point ROS was completed and negative except as noted: Yes
Constitutional: Reports Fatigue; Denies Fever or Chills
Respiratory: Denies Cough or Trouble Breathing
Cardiac: Denies Chest Pain or Palpitations
Abdomen/GI: Denies Abdominal Pain, Nausea or Vomiting
: Denies Dysuria or Frequency
Musculoskeletal: Denies Joint Pain or Edema
Neurological: Reports Weakness and Numbness; Denies Dizzy or Headache
Psych: Denies Depression or Anxiety
Physical Exam
Physical Exam
General: Other (53y F in no acute distress.)
HEENT: Moist mucous membranes and PERRLA
Respiratory: Clear; No Wheezes, Rales or Rhonchi
Cardiac: S1/S2 and Regular Rhythm; No Murmur
GI: Soft, Non Tender, Non Distended and Normal Bowel Sounds
Musculoskeletal: No Clubbing, No Cyanosis and No Edema
Neuro: AO x 3 and Other (Patient moves all extremities - no evidence of focal weakness or ataxia.)
Impression/Plan
-
A/P: Patient is a 53y F with PMH significant for hypertension and alcohol use disorder who presents to in transfer from [place] after neuromuscular evaluation at that facility.
Axonal Sensory Predominant Polyneuropathy
Ambulatory Dysfunction secondary to the above
- Resume prior care / evaluation / treatment.
- Continue Lyrica and titrate to effective dose.
- Continue PT / OT.
- Evaluate for possible rehab v SNF at discharge.
- Continue nutritional supplementation (B1, B12, etc).
- Follow for continued improvement.
Cytotoxic Lesion of the Corpus Callosum
- Unclear clinical significance and does not seem consistent with / related to her current presentation.
- Not a CVA and DAPT has been discontinued.
- Outpatient Neurology for further follow-up.
Benign Hypertension
- Stable. Continue amlodipine / propranolol.
Alcohol Use Disorder
Macrocytosis secondary to the above
- Seems likely that longstanding alcohol use disorder has contributed to current neuropathic symptoms.
- Continue thiamine replacement.
- Property Utilization Manager on continued abstinence from EtOH.
Hypokalemia
Hypophosphatemia
- Update labs and replete further if needed.
Hepatitis A
- Total antibody positive.
- IgM is pending.
- No current symptoms.
DVT Prophylaxis: Lovenox
Code Status: Full
--- NOTE | 2024-02-13 01:08 | PTCARENOTE ---
Pt received on unit approximately 0010 on 02/13/24. Pt able to stand and pivot from stretcher to bed. Pt is med-surge. AAOx3. VSS. Pt still c/o paresthesia in b/l upper and lower ext. with movement. Pt seen by electrician helper automotive. Pt oriented to room and
able to make needs known.
[2024-02-13 07:11] LABS: Hematocrit 31.5 % (37.0-47.0); Hemoglobin 10.9 g/dL (12.0-16.0); Mean Corp Hgb Conc. 34.6 g/dL (33.0-37.0); Mean Corpuscular Hgb 37.7 pg (27.0-31.0); Mean Platelet Volume 11.7 fL (7.4-10.4); Platelet Count 239 10^3/uL (130-400); Red Blood Cell Count 2.89 10^6/uL (4.20-5.40); Red Cell Dist. Width 12.9 % (11.5-14.5); White Blood Cell Count 8.6 10^3/uL (4.8-10.8)
[2024-02-13 07:39] LABS: Blood Urea Nitrogen 12 mg/dl (7-17); Calcium 9.2 mg/dl (8.4-10.2); Carbon Dioxide 30 mmol/L (22-30); Chloride 104 mmol/L (98-107); Estimated Creatinine Clearance 77 ml/min; Glucose 92 mg/dl (70-99); Sodium 140 mmol/L (135-145); eGFR > 60.00
[2024-02-13] MEDS: LYRICA 150 MG PO ×3 (07:53→23:32)
[2024-02-13] MEDS: VITAMIN B1 100 MG PO (07:54)
[2024-02-13] MEDS: VITAMIN B-12 1000 MCG PO (07:54)
[2024-02-13] MEDS: INDERAL 20 MG PO (07:54)
[2024-02-13] MEDS: NORVASC 10 MG PO (07:55)
[2024-02-13] MEDS: LIPITOR 40 MG PO (07:55)
[2024-02-13] MEDS: VITAMIN C 250 MG PO (07:56)
--- NOTE | 2024-02-13 10:11 | W.PN.HOSP.TC ---
Today's Communication/Plan
-
- follow up with case managment
Assessment / Plan
Assessment / Plan
axonal sensory predominant polyneuropathy
- continue on lyrica
- continue pt/ot
- Diagnosed on repetitive emg, no muscle biopsy was performed
- follow neurology
- IV steroids stopped after 3 doses b/c no resolution of symptoms
- IVIG discontinued
Ischemic infarct of the corpus callosum ( ruled out):
- Aspirin/ plavix discontinued
- Repeat MRI of brain and CT today 02/09/2024 findings ruled out stroke
- MRI of brain shows a infarct at the corpus callosum
- Physiatry consulted
- PT/OT state they would like patient to go to acute rehab when medically stable
- echo normal
- CTA normal
- Sensation intact, Lower left extremity weakness compared to right
Hypokalemia:
- Replete potassium, today 3.3
Hypophosphatemia:
- Repleted phosphate
Alcohol use disorder:
- Former drinker, quit 4 weeks ago
- Supplement with thiamine and folate.
Macrocytic Anemia:
- hb is 13.7, mcv 109
- Likely due to alcohol abuse, advised on cessation of further alcohol use
Elevated liver enzymes:
-AST, ALT trending down, continue to observe
- Likely due to fatty liver
- outpatient GI
Hypertension:
- Continue Amlodipine
Depression:
- Continue Escitalopram
Positive hepatits A infection:
-outpatient follow up with GI
DVT ppx: lovenox
Full code
Anticipated Discharge: 24 - 48 hours
Subjective/Interval History
-
Date of Service: February 13, 2024
no overnight events.
No acute medical problems
Patient is able to walk to the bathroom by herself.
Objective Data
-
Labs:
Laboratory Results
02/13/24
06:32
WBC 8.6
Hgb 10.9 L
Hct 31.5 L
Plt Count 239
Sodium 140
Potassium 4.0
Chloride 104
Carbon Dioxide 30
BUN 12
Creatinine 0.8
Glucose 92
Calcium 9.2
Vital Signs:
Vital Signs
Temp Pulse Resp BP Pulse Ox
97.9 F 105 20 144/96 98
02/13/24 07:00 02/13/24 07:00 02/13/24 07:00 02/13/24 07:00 02/13/24 07:00
I&O
02/12/24 02/13/24 02/14/24
06:59 06:59 06:59
Intake Total 240 / 240
Balance 240 / 240
Review of Systems
-
History Source: Patient
Constitutional: Denies Fever or Chills
EENT: Denies Blurry Vision or Eye Pain
Respiratory: Denies Cough or Wheezing
Cardiac: Denies Chest Pain, Diaphoresis, Palpitations, Syncope, PND or Orthopnea
Abdomen/GI: Denies Abdominal Pain, Nausea, Vomiting, Diarrhea or Constipated
Genitourinary: Denies Dysuria
Musculoskeletal: Reports Muscle Pain (bilateral lower extremities) and Muscle Weakness (Lower extremities bilaterally ); Denies Joint Pain
Skin: Denies Itching or Rash
Neuro: Reports Weakness (Bilateral lower extremities) and Numbness (Bilateral lower extremities, and upper bilateral extremities); Denies Dizzy
Physical Exam
-
Respiratory: Clear to Auscultation
Cardiac: Regular Rhythm and S1/S2
GI: Soft, Nontender, Nondistended and Normal Bowel Sounds
Genito-urinary: No Costovertebral Tender; Negative Costovertebral Angle Tend
Musculoskeletal: No Cyanosis and No Edema
Skin: Warm and Dry
Neuro: Awake, Alert, Oriented, AO x 3, No Motor Deficits and Other (weakness in left lower extremity compared to right, bilateral decreased deep tendon reflexes); Negative No Sensory Deficits or DTR's Intact & Symmetrica
Data Reviewed
-
Medical Tests (Nuc Med, Echo etc): Image personally visualized and interpreted and Discussed with Physician
Labs: Labs Reviewed by me and Discussed with Physician
--- NOTE | 2024-02-13 11:16 | W.PN.UPDATE ---
Update Note
Progress Note Update
I saw and evaluated the patient. I reviewed the resident�s note and agree with findings and plan as documented in the resident�s note.
No new complaints. Still with pain in the lower extremities.
Gen: NAD, AAOx3.
Eyes: EOMI, PERRLA, no scleral icterus.
Neck: supple.
CV: RRR, +S1/S2, no m/r/g.
Resp: CTAB, no rales, wheezes, or rhonchi.
Abd: +BS, soft, NT, ND
Skin: No rashes.
Neuro: remains CN 2-12 intact, 3-4/5 strength in both LEs.
Psych: Normal mood and affect.
02/04/24 03:30 Blood/Venous Blood Culture - Final
No Growth - Final Report
02/03/24 19:43 Blood/Venous Blood Culture - Final
No Growth - Final Report
02/03/24 16:20 Csf CSF Culture - Final
No Growth After 5 Days - Final Report
02/03/24 16:20 Csf Gram Stain - Final
02/04/24 06:24 Urine Urine Culture - Final
02/03/24 14:34 Urine Urine Culture - Final
Escherichia coli
02/03/24 16:14 Csf Meningitis/Encephalitis Panel (PCR) - Final
Abd U/S: Hepatic fatty infiltration. Stable. Trace gallbladder sludge. New. No secondary findings to suggest acute cholecystitis
MRI C-spine w/wo: Multilevel degenerative changes of the cervical spine as detailed, worst at C5-6 where disc and uncovertebral/facet disease contribute to mild spinal canal neural foraminal stenosis at this level. Limited exam from patient motion
artifact; however, no convincing MR evidence for spinal cord abnormality/transverse myelitis.
MRI T/L-spine: Chronic mild degenerative changes of the thoracic spine and lumbar spine. No MRI evidence for cord signal alteration. No evidence for significant spinal canal stenosis or neuroforaminal stenosis.
CTA head/neck: No evidence of acute intracranial abnormality. No significant narrowing or atherosclerotic disease involving the common carotid arteries, carotid bulbs, proximal internal carotid arteries, or cervical internal carotid arteries
bilaterally. Hypoplastic A1 segment of the left anterior cerebral artery, considered normal variation. No evidence for high-grade stenosis or large vessel occlusion of the intracranial circulation. Vertebral basilar anatomy as described with
bilateral relatively large caliber posterior inferior cerebellar artery branches arising from the superior vertebral arteries. No evidence for high-grade stenosis.
CT chest w/IV: Significant calcification involving the left anterior descending coronary artery. Please correlate with symptoms of and risk factors for coronary artery disease, with further workup as clinically appropriate. Thyroid gland appears
slightly enlarged including enlargement of the thyroid isthmus. No evidence for thyroid nodule. The lungs appear clear. Minimal calcific atherosclerotic disease of the aorta and origins of the great vessels.
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
MRI brain 02/09/24: There is decreased size and conspicuity of the focus of restricted diffusion within the splenium of corpus callosum which now measures 8mm, previously 12 mm and is favored to represent evolving cytotoxic lesion of the corpus
callosum. No new acute intracranial abnormality.
B/L LE paresthesias and weakness:
-presented with ascending B/L paraesthesias and ambulatory dysfunction after vaccine admin at the beginning of November
-s/p LP on admission: gluc/prot elevated, 1WBC. Meningitis/encephalitis panel negative.
-regarding presenting symptoms, EMG was without evidence of AIDP. GBS currently ruled out. Pt was on IVIG which has been stopped.
-MRI spine without acute findings as above
-acute/subacute CVA has now been ruled out based on repeat MRI brain findings. ASA/Plavix stopped.
-pt sent to [facility] for rep stim EMG which showed polyneuropathy. Neuro at [facility] decided muscle biopsy was not indicated.
-cont statin (increased dose for low high LDL)
Other problems:
Essential HTN: cont Propranolol/Norvasc
Transaminitis, mild, likely related to fatty liver
Alcohol use disorder: cont thiamine/folate.
Macrocytic anemia, likely due to alcohol use
HAV POS: outpt GI f/u
NIDA, mild, resolved
Hypokalemia, replete PRN
Hypophosphatemia, replete PRN
Patient's sister updated extensively at bedside.
FULL/Lovenox
Medically cleared for discharge. Case management aware.
[2024-02-13] MEDS: TYLENOL 650 MG PO ×2 (11:42→23:33)
[2024-02-13 15:20] LABS: Hematocrit 31.1 % (37.0-47.0); Hemoglobin 10.6 g/dL (12.0-16.0); Mean Corp Hgb Conc. 34.1 g/dL (33.0-37.0); Mean Corpuscular Hgb 37.6 pg (27.0-31.0); Mean Corpuscular Volume 110.3 fL (81.0-99.0); Mean Platelet Volume 11.6 fL (7.4-10.4); Platelet Count 266 10^3/uL (130-400); Red Blood Cell Count 2.82 10^6/uL (4.20-5.40); White Blood Cell Count 10.9 10^3/uL (4.8-10.8)
--- NOTE | 2024-02-13 15:21 | CM ---
canvass manager reviewed patient's chart and met with patient, patient was recently at [facility] and was sent to [place], patient has now returned and the plan again is for acute rehab at [place]. canvass manager reached out to [place] today and left
several messages.
Patient reports that she lives in a 2 story home with 3 steps to enter, patient is independent with adl's and ambulation, no dme.
PCP: Dr. Trever Rosas
Pharm[facility] [address] in [place].
canvass manager reached out to [place] several times today, admissions is closed at [place] on the weekends however [place] liaison did reach out to case finisher and PM&R consult is not necessary and [place] will accept patient on Thursday, case finisher plans to
proceed with obtaining Auth tomorrow for possible transfer to [place] at [facility] on Thursday.
Sukhdeep
Dr Marmolejo
[2024-02-13 15:32] LABS: ALT (SGPT) 55 U/L (0-35); AST (SGOT) 43 U/L (14-36); Albumin 3.3 g/dl (3.5-5.0); Alkaline Phosphatase 114 U/L (38-126); Blood Urea Nitrogen 16 mg/dl (7-17); Calcium 8.9 mg/dl (8.4-10.2); Carbon Dioxide 29 mmol/L (22-30); Chloride 103 mmol/L (98-107); Estimated Creatinine Clearance 77 ml/min; Glucose 159 mg/dl (70-99); Potassium 4.5 mmol/L (3.5-5.1); Sodium 139 mmol/L (135-145); Total Bilirubin 0.3 mg/dl (0.2-1.3); eGFR > 60.00
[2024-02-13] MEDS: LOVENOX 40 MG SC (17:32)
[2024-02-14 07:55] VITALS: BP 116/79
[2024-02-14] MEDS: VITAMIN B1 100 MG PO (08:02)
[2024-02-14] MEDS: VITAMIN C 250 MG PO (08:02)
[2024-02-14] MEDS: LIPITOR 40 MG PO (08:02)
[2024-02-14] MEDS: INDERAL 20 MG PO (08:03)
[2024-02-14] MEDS: VITAMIN B-12 1000 MCG PO (08:06)
[2024-02-14] MEDS: NORVASC 10 MG PO (08:06)
[2024-02-14] MEDS: LYRICA 150 MG PO ×3 (08:06→21:23)
--- NOTE | 2024-02-14 08:34 | W.PN.HOSP.TC ---
Today's Communication/Plan
-
- discharge to [facility], awaiting approval
Assessment / Plan
Assessment / Plan
axonal sensory predominant polyneuropathy
- Discharge to [facility] on Thursday
- continue on lyrica
- continue pt/ot
- Diagnosed on repetitive emg, no muscle biopsy was performed
- follow neurology
- IV steroids stopped after 3 doses b/c no resolution of symptoms
- IVIG discontinued
Ischemic infarct of the corpus callosum ( ruled out):
- Aspirin/ plavix discontinued
- Repeat MRI of brain and CT today 02/09/2024 findings ruled out stroke
- MRI of brain shows a infarct at the corpus callosum
- Physiatry consulted
- PT/OT state they would like patient to go to acute rehab when medically stable
- echo normal
- CTA normal
- Sensation intact, Lower left extremity weakness compared to right
Hypokalemia:
- Replete potassium, today 3.3
Hypophosphatemia:
- Repleted phosphate
Alcohol use disorder:
- Former drinker, quit 4 weeks ago
- Supplement with thiamine and folate.
Macrocytic Anemia:
- hb is 13.7, mcv 109
- Likely due to alcohol abuse, advised on cessation of further alcohol use
Elevated liver enzymes:
-AST, ALT trending down, continue to observe
- Likely due to fatty liver
- outpatient GI
Hypertension:
- Continue Amlodipine
Depression:
- Continue Escitalopram
Positive hepatits A infection:
-outpatient follow up with GI
DVT ppx: lovenox
Full code
Anticipated Discharge: 24 - 48 hours
Subjective/Interval History
-
Date of Service: February 14, 2024
No overnight events
No acute medical problems
Objective Data
-
Vital Signs:
Vital Signs
Temp Pulse Resp BP Pulse Ox
98.2 F 107 16 116/79 98
02/14/24 07:55 02/14/24 07:55 02/14/24 07:55 02/14/24 07:55 02/14/24 07:55
I&O
02/13/24 02/14/24 02/15/24
06:59 06:59 06:59
Intake Total 240 / 240 1200 / 1200
Balance 240 / 240 1200 / 1200
Review of Systems
-
History Source: Patient
Constitutional: Denies Fever or Chills
EENT: Denies Blurry Vision or Eye Pain
Respiratory: Denies Cough or Wheezing
Cardiac: Denies Chest Pain, Diaphoresis, Palpitations, Syncope, PND or Orthopnea
Abdomen/GI: Denies Abdominal Pain, Nausea, Vomiting, Diarrhea or Constipated
Genitourinary: Denies Dysuria
Musculoskeletal: Reports Muscle Pain (bilateral lower extremities) and Muscle Weakness (Lower extremities bilaterally ); Denies Joint Pain
Skin: Denies Itching or Rash
Neuro: Reports Weakness (Bilateral lower extremities) and Numbness (Bilateral lower extremities, and upper bilateral extremities); Denies Dizzy
Physical Exam
-
Respiratory: Clear to Auscultation
Cardiac: Regular Rhythm and S1/S2
GI: Soft, Nontender, Nondistended and Normal Bowel Sounds
Genito-urinary: No Costovertebral Tender; Negative Costovertebral Angle Tend
Musculoskeletal: No Cyanosis and No Edema
Skin: Warm and Dry
Neuro: Awake, Alert, Oriented, AO x 3, No Motor Deficits and Other (weakness in left lower extremity compared to right, bilateral decreased deep tendon reflexes); Negative No Sensory Deficits or DTR's Intact & Symmetrica
Data Reviewed
-
Medical Tests (Nuc Med, Echo etc): Image personally visualized and interpreted and Discussed with Physician
Labs: Labs Reviewed by me and Discussed with Physician
--- NOTE | 2024-02-14 09:01 | W.PN.UPDATE ---
Update Note
Progress Note Update
I saw and evaluated the patient. I reviewed the resident�s note and agree with findings and plan as documented in the resident�s note.
No new complaints.
Gen: NAD, AAOx3.
Eyes: EOMI, PERRLA, no scleral icterus.
Neck: supple.
CV: Remains RRR, +S1/S2, no m/r/g.
Resp: Remains CTAB, no rales, wheezes, or rhonchi.
Abd: +BS, soft, NT, ND
Skin: No rashes.
Neuro: Continues to remain CN 2-12 intact, 3-4/5 strength in both LEs.
Psych: Normal mood and affect.
02/04/24 03:30 Blood/Venous Blood Culture - Final
No Growth - Final Report
02/03/24 19:43 Blood/Venous Blood Culture - Final
No Growth - Final Report
02/03/24 16:20 Csf CSF Culture - Final
No Growth After 5 Days - Final Report
02/03/24 16:20 Csf Gram Stain - Final
02/04/24 06:24 Urine Urine Culture - Final
02/03/24 14:34 Urine Urine Culture - Final
Escherichia coli
02/03/24 16:14 Csf Meningitis/Encephalitis Panel (PCR) - Final
Abd U/S: Hepatic fatty infiltration. Stable. Trace gallbladder sludge. New. No secondary findings to suggest acute cholecystitis
MRI C-spine w/wo: Multilevel degenerative changes of the cervical spine as detailed, worst at C5-6 where disc and uncovertebral/facet disease contribute to mild spinal canal neural foraminal stenosis at this level. Limited exam from patient motion
artifact; however, no convincing MR evidence for spinal cord abnormality/transverse myelitis.
MRI T/L-spine: Chronic mild degenerative changes of the thoracic spine and lumbar spine. No MRI evidence for cord signal alteration. No evidence for significant spinal canal stenosis or neuroforaminal stenosis.
CTA head/neck: No evidence of acute intracranial abnormality. No significant narrowing or atherosclerotic disease involving the common carotid arteries, carotid bulbs, proximal internal carotid arteries, or cervical internal carotid arteries
bilaterally. Hypoplastic A1 segment of the left anterior cerebral artery, considered normal variation. No evidence for high-grade stenosis or large vessel occlusion of the intracranial circulation. Vertebral basilar anatomy as described with
bilateral relatively large caliber posterior inferior cerebellar artery branches arising from the superior vertebral arteries. No evidence for high-grade stenosis.
CT chest w/IV: Significant calcification involving the left anterior descending coronary artery. Please correlate with symptoms of and risk factors for coronary artery disease, with further workup as clinically appropriate. Thyroid gland appears
slightly enlarged including enlargement of the thyroid isthmus. No evidence for thyroid nodule. The lungs appear clear. Minimal calcific atherosclerotic disease of the aorta and origins of the great vessels.
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
MRI brain 02/09/24: There is decreased size and conspicuity of the focus of restricted diffusion within the splenium of corpus callosum which now measures 8mm, previously 12 mm and is favored to represent evolving cytotoxic lesion of the corpus
callosum. No new acute intracranial abnormality.
B/L LE paresthesias and weakness:
-presented with ascending B/L paraesthesias and ambulatory dysfunction after vaccine admin at the beginning of November
-s/p LP on admission: gluc/prot elevated, 1WBC. Meningitis/encephalitis panel negative.
-regarding presenting symptoms, EMG was without evidence of AIDP. GBS currently ruled out. Pt was on IVIG which has been stopped.
-MRI spine without acute findings as above
-acute/subacute CVA has now been ruled out based on repeat MRI brain findings. ASA/Plavix stopped.
-pt sent to [facility] for rep stim EMG which showed polyneuropathy. Neuro at [facility] decided muscle biopsy was not indicated.
-cont statin (increased dose for high LDL)
Other problems:
Essential HTN: cont Propranolol/Norvasc
Transaminitis, mild, likely related to fatty liver
Alcohol use disorder: cont thiamine/folate.
Macrocytic anemia, likely due to alcohol use
HAV POS: outpt GI f/u
NIDA, mild, resolved
Hypokalemia, replete PRN
Hypophosphatemia, replete PRN
Patient's sister updated extensively at bedside.
FULL/Lovenox
Remains medically cleared for discharge since 24AM. Case management aware.
--- NOTE | 2024-02-14 10:32 | CM ---
Addendum entered by Lavinia Hurtado 02/14/24 16:42:
Call placed to [facility], spoke with June request for Auth for [facility] at [facility] initiated. No return call received from [facility].
LOU
Dr Marmolejo
Original Note:
Chart reviewed and per liaison engineer at [facility] they will have a bed for patient on 02/15/24 at [facility], case loader operator will reach out to patient's insurance to obtain Auth for acute rehab at [place].
Plan; Bed is available for patient at [place] pending Auth, case loader operator is reaching out to patient's insurance today to initiate Auth for patient.
[2024-02-14] MEDS: TYLENOL 650 MG PO ×3 (10:58→21:23)
[2024-02-14 16:58] VITALS: BP 105/72
[2024-02-14] MEDS: LOVENOX 40 MG SC (18:43)
[2024-02-14] MEDS: MELATONIN 3 MG PO (21:24)
[2024-02-14 23:06] VITALS: BP 100/70
[2024-02-15 07:28] VITALS: BP 126/87
[2024-02-15 08:14] LABS: Hematocrit 33.2 % (37.0-47.0); Mean Corp Hgb Conc. 33.1 g/dL (33.0-37.0); Mean Corpuscular Volume 111.8 fL (81.0-99.0); Mean Platelet Volume 11.4 fL (7.4-10.4); Platelet Count 253 10^3/uL (130-400); Red Blood Cell Count 2.97 10^6/uL (4.20-5.40); White Blood Cell Count 11.2 10^3/uL (4.8-10.8)
[2024-02-15 08:42] LABS: Blood Urea Nitrogen 10 mg/dl (7-17); Calcium 9.2 mg/dl (8.4-10.2); Carbon Dioxide 25 mmol/L (22-30); Chloride 106 mmol/L (98-107); Estimated Creatinine Clearance 88 ml/min; Glucose 123 mg/dl (70-99); Potassium 3.8 mmol/L (3.5-5.1); Sodium 141 mmol/L (135-145); eGFR > 60.00
[2024-02-15] MEDS: INDERAL 20 MG PO (09:44)
[2024-02-15] MEDS: LYRICA 150 MG PO ×2 (09:44→15:58)
[2024-02-15] MEDS: LIPITOR 40 MG PO (09:45)
[2024-02-15] MEDS: NORVASC 10 MG PO (09:45)
[2024-02-15] MEDS: VITAMIN B1 100 MG PO (09:45)
[2024-02-15] MEDS: VITAMIN B-12 1000 MCG PO (09:45)
[2024-02-15] MEDS: VITAMIN C 250 MG PO (09:45)
[2024-02-15 10:26] VITALS: BP 119/75; PULSE 109; O2SAT 99
[2024-02-15 10:43] VITALS: BP 119/75; PULSE 113; O2SAT 99
[2024-02-15] MEDS: TYLENOL 650 MG PO (12:06)
--- NOTE | 2024-02-15 12:13 | CM ---
CM reviewed- per notes pt has been ready for dc since weekend
Bed confirmed at [place]/[facility] auth obtained from [facility] (direct phone [phone])
Bedside update to pt who remains in agreement with plan
Update to resident/Dr Rehman
[facility] Auth# [id number]
5 days 02/14-02/18 NRD/LCD
(p) [phone] option 5
Discharge Disposition- [place]
(p) [phone] (f) [phone]
[2024-02-15 15:17] VITALS: BP 97/64
--- NOTE | 2024-02-15 17:54 | W.PN.HOSP.TC ---
Addendum entered and electronically signed by Gabriel Francisco MD 02/16/24 00:31:
Attending Addendum:
I saw and evaluated the patient. I reviewed the resident�s note and agree with findings and plan as documented in the resident�s note. Sub: Continues to have parastesias in UE and LE. no worse. Wants to go to [facility]. Full 12 point ROS reviewed and
negative except as documented Exam: Vitals reviewed in chart GEN-NAd heart RRR lungs clear abd soft LE no edeam MS 5/5 sensation intact throughout
# B/L LE paresthesias and weakness:
-presented with ascending B/L paraesthesias and ambulatory dysfunction after vaccine admin at the beginning of November
-s/p LP on admission: gluc/prot elevated, 1WBC. Meningitis/encephalitis panel negative.
-regarding presenting symptoms, EMG was without evidence of AIDP. GBS currently ruled out. Pt was on IVIG which has been stopped.
-MRI spine without acute findings as above
-acute/subacute CVA has now been ruled out based on repeat MRI brain findings. ASA/Plavix stopped.
-pt sent to [facility] for rep stim EMG which showed polyneuropathy. Neuro at [facility] decided muscle biopsy was not indicated.
-cont statin (increased dose for high LDL)
- cont lyrica
- DC to [facility]
Other problems:
Essential HTN: cont Propranolol/Norvasc
Transaminitis, mild, likely related to fatty liver
Alcohol use disorder: cont thiamine/folate.
Macrocytic anemia, likely due to alcohol use
HAV POS: outpt GI f/u
NIDA, mild, resolved
Hypokalemia, replete PRN
Hypophosphatemia, replete PRN
Dispo DC to [facility]
Time spent coordinating care, DC planning, review of DC plan of care with resident, transition of care, review of records, med rec/scripts sent electronically, consults, notes, d/w consultants, nursing, family, and CM� 35 mins
Original Note:
Today's Communication/Plan
-
Patient to be discharged to [facility]
Assessment / Plan
Assessment / Plan
Assessment:
53 yo female with a PMHx significant for brain infarct at the corpus callosum found on MRI leading to axonal sensory predominant polyneuropathy is here pending discharge to [facility] for rehabilitation of her muscle weakness.
#Axonal sensory predominant polyneuropathy
- Patient awaiting discharge to [facility]
- Will continue on Lyrica 150mg TID
- PT/OT assessment recommended rehabilitation
- Diagnosed on repetitive emg at [facility]
- Neurology following, input appreciated
- Will followup with Neuro as outpatient in 1-2 weeks
#Ischemic infarct of the corpus callosum ( ruled out):
- MRI of brain shows a infarct at the corpus callosum
- Physiatry consulted
- Patient scheduled to go to [facility] Today
- echo normal
- CTA normal
- Sensations intact both upper and lower extremities
- Improved strength in Lower extremities, can ambulate better
Hypokalemia:
- Resolved, 3.8 today.
Hypophosphatemia:
- Phospate was repleted
- Unchecked afterwards
Alcohol use disorder:
- Patient quit drinking 4 weeks ago
- Supplemented with Thiamine and Folate
- Counseled patient on importance of continued alcohol cessation
Macrocytic Anemia:
- hb 11.0, mcv 111.8
- Most likely due to alcohol abuse. Counseled her on importance of continued alcohol cessation
Elevated liver enzymes:
- AST, ALT trending down, continue to observe
- Could be due to Fatty liver or Hep A infection
- Will follow up with outpatient GI as discussed
Positive hepatitis A infection:
- outpatient follow up with GI
Hypertension:
- Continue Amlodipine
Depression:
- Continue Escitalopram
DVT ppx: lovenox
Full code
Anticipated Discharge: Today
Subjective/Interval History
-
Date of Service: February 15, 2024
Patient has been feeling better and says that she has been able to go to the bathroom by herself. She feels some tingling sensation in both bilateral upper and lower extremities but she says her strength is much improved from before. Her hands
however are having trouble with fine movements.
Objective Data
-
Labs:
Laboratory Results
02/15/24
07:45
WBC 11.2 H
Hgb 11.0 L
Hct 33.2 L
Plt Count 253
Sodium 141
Potassium 3.8
Chloride 106
Carbon Dioxide 25
BUN 10
Creatinine 0.7
Glucose 123 H
Calcium 9.2
Vital Signs:
Vital Signs
Temp Pulse Resp BP Pulse Ox
98.2 F 89 20 97/64 99
02/15/24 15:17 02/15/24 15:17 02/15/24 15:17 02/15/24 15:17 02/15/24 15:17
I&O
02/14/24 02/15/24 02/16/24
06:59 06:59 06:59
Intake Total 1200 / 1200 1500 / 1500
Balance 1200 / 1200 1500 / 1500
Review of Systems
-
History Source: Patient
Constitutional: Reports No Symptoms
EENT: Reports No Symptoms Reported
Respiratory: Denies Cough or Trouble Breathing
Cardiac: Denies Chest Pain, Diaphoresis or Palpitations
Abdomen/GI: Denies Abdominal Pain, Nausea or Vomiting
Genitourinary: Reports No Symptoms
Musculoskeletal: Reports Muscle Weakness and Other (Tingling)
Skin: Reports No Symptoms
Neuro: Reports Weakness and Numbness (mainly in hands)
Endocrine: Reports No Symptoms
Hematologic / Lymphatic: Reports No Symptoms
Allergy / Immunology: Reports No Symptoms
Physical Exam
-
General: Well Developed, Well Nourished, No Apparent Distress and Comfortable
HEENT: Normocephalic and Atraumatic
Respiratory: Clear to Auscultation and Non Labored Respirations
Cardiac: Regular Rhythm and S1/S2
GI: Soft, Nontender and Nondistended
Musculoskeletal: No Clubbing, No Cyanosis, No Edema and Other (Muscle strength 4/5 bilateral upper and lower extremities)
Neuro: Awake, Alert, Oriented, AO x 3 and No Sensory Deficits
Psych: Calm
Data Reviewed
-
MRI: Report Reviewed by me, Discussed with Physician and Discussed with Patient
Labs: Labs Reviewed by me, Discussed with Physician and Discussed with Patient
--- NOTE | 2024-02-15 19:15 | W.DCSUMMARY ---
Addendum entered and electronically signed by Gabriel Francisco MD 02/16/24 00:32:
Read, reviewed, and agree. See same day progress note for additional details.
Christophe Francisco MD
Original Note:
Documented by User: Cliff Rehman MD, Resident 02/15/24 19:36
Discharge Summary
Discharge Data
Date of Admission: 02/13/24
Date of Discharge: 02/15/24
-
Pending Results: No
Hospital Course
Discharging Physician : Dr. Gabriel Francisco
Disposition : Acute Rehab ([facility])
Primary care physician : Dr. Alas
Principal Discharge diagnosis : B/L LE paresthesias and weakness
Chronic Discharge diagnosis : Alcohol use disorder, Macrocytic Anemia, Elevated liver enzymes, Hypertension, Depression, Positive hepatits A infection
Hospital Course : 53-year-old female with past medical history of GERD, hypertension, depression, UTI, and alcohol abuse presented via transfer from [facility] with bilateral lower extremity numbness, weakness and paresthesia that is ascending to both of
her arms. Patient was transferred to [facility] on 02/10 and was planned to undergo muscle biopsy and EEG with repetitive stimulation. Muscle biopsy was deemed unnecessary and patient was then transferred back to for ongoing care and eventual transfer
to [facility]. Patient was evaluated for rehab vs SNF and was decided that she would go to [facility] for rehabilitation of her muscle function. Patient continued to be on aspirin 81 mg indefinitely, Plavix 75 Mg, and atorvastatin 40 mg. Patient
continued on B12, thiamine, pregabalin 150 3 times daily. Patient will follow up with Neuro in 1 week in outpatient setting.
Alcohol use disorder, supplement with thiamine and folate
Macrocytic anemia: Patient should get repeat CBC at her primary care in 1 week
Hypertension: Continue amlodipine
Depression:Continue escitalopram
Positive hepatitis A infection and elevated LFTs: Outpatient follow-up with GI
Important imaging findings :
None this visit
Discharge Plan
-
Patient Disposition: Acute Rehab Facility
Discharge Diagnosis/Procedures: B/L LE paresthesias and weakness
Condition: Fair
Diet: Regular
Activity: As tolerated
Driving Restrictions: As prior to admission
Bathing Restrictions: None
Blood Work: CBC with PCP in 1 week
Instructions: Alcohol and your health
Referrals:
Anaid Martinez MD [Active] - in one to two weeks
Diane Alas MD [Active] - in one week
()
Prescriptions:
Continued
polyethylene glycol 3350 17 gram Powder In Packet
17 g PO DAILYPRN PRN (Reason: constipation) Qty: 1 0RF
acetaminophen [Tylenol] 325 mg Tablet
650 mg PO Q6HPRN PRN (Reason: mild pain) Qty: 30 0RF
cyanocobalamin (vitamin B-12) 1,000 mcg Tablet
1,000 mcg PO DAILY Qty: 30 0RF
famotidine [Zantac-360 (famotidine)] 20 mg Tablet
20 mg PO DAILYPRN PRN (Reason: heartburn) Qty: 30 0RF
ascorbic acid (vitamin C) [Vitamin C] 250 mg Tablet
250 mg PO DAILY Qty: 30 0RF
amlodipine 10 mg Tablet
10 mg PO DAILY Qty: 30 0RF
propranolol 20 mg Tablet
20 mg PO DAILY Qty: 30 0RF
pregabalin 75 mg Capsule
150 mg PO TID Qty: 30 0RF
atorvastatin 40 mg tablet
40 mg PO DAILY Qty: 30 0RF
thiamine HCl (vitamin B1) 100 mg Tablet
100 mg PO DAILY
melatonin 3 mg Tablet
3 mg PO HS PRN (Reason: Insomnia)
Discontinued
aspirin 81 mg Tablet,Chewable
81 mg PO DAILY Qty: 30 0RF
Discharge Orders:
Discharge Patient (As Directed); Ordered 02/15/24
Ordered By: Cliff Rehman
Discharge Date and Time
Discharge Date/Time: 02/15/24 16:15
Print Language: MALIAN

Documented by User: Gabriel Francisco MD 02/16/24 00:27
Discharge Summary
Discharge Data
Date of Admission: 02/13/24
Date of Discharge: 02/16/24
Discharge Plan
-
Patient Disposition: Acute Rehab Facility
Discharge Diagnosis/Procedures: B/L LE paresthesias and weakness
Condition: Fair
Diet: Regular
Activity: As tolerated
Driving Restrictions: As prior to admission
Bathing Restrictions: None
Blood Work: CBC with PCP in 1 week
Instructions: Alcohol and your health
Referrals:
Anaid Martinez MD [Active] - in one to two weeks
Diane Alas MD [Active] - in one week
()
Prescriptions:
Continued
polyethylene glycol 3350 17 gram Powder In Packet
17 g PO DAILYPRN PRN (Reason: constipation) Qty: 1 0RF
acetaminophen [Tylenol] 325 mg Tablet
650 mg PO Q6HPRN PRN (Reason: mild pain) Qty: 30 0RF
cyanocobalamin (vitamin B-12) 1,000 mcg Tablet
1,000 mcg PO DAILY Qty: 30 0RF
famotidine [Zantac-360 (famotidine)] 20 mg Tablet
20 mg PO DAILYPRN PRN (Reason: heartburn) Qty: 30 0RF
ascorbic acid (vitamin C) [Vitamin C] 250 mg Tablet
250 mg PO DAILY Qty: 30 0RF
amlodipine 10 mg Tablet
10 mg PO DAILY Qty: 30 0RF
propranolol 20 mg Tablet
20 mg PO DAILY Qty: 30 0RF
pregabalin 75 mg Capsule
150 mg PO TID Qty: 30 0RF
atorvastatin 40 mg tablet
40 mg PO DAILY Qty: 30 0RF
thiamine HCl (vitamin B1) 100 mg Tablet
100 mg PO DAILY
melatonin 3 mg Tablet
3 mg PO HS PRN (Reason: Insomnia)
Discontinued
aspirin 81 mg Tablet,Chewable
81 mg PO DAILY Qty: 30 0RF
Discharge Orders:
Discharge Patient (As Directed); Ordered 02/15/24
Ordered By: Cliff Rehman
Discharge Date and Time
Discharge Date/Time: 02/15/24 16:15
Print Language: MALIAN
== END 2024-02-15 16:15 | DRG 74 ==
LOC: 4 WEST ACU 00:03
PROVIDERS: Hospitalist; ADMITTING PHYSICIAN Hospitalist; ATTENDING PHYSICIAN Family Medicine
DX: G62.9 Polyneuropathy, unspecified (principal); B15.9 Hepatitis A without hepatic coma; N17.9 Acute kidney failure, unspecified; I10 Essential (primary) hypertension; F10.10 Alcohol abuse, uncomplicated; D75.89 Other specified diseases of blood and blood-forming organs; E87.6 Hypokalemia; E83.39 Other disorders of phosphorus metabolism; D53.9 Nutritional anemia, unspecified; F32.A Depression, unspecified
CPT/HCPCS: 80048; 80053; 85027; 97116; 97163; 97166; 97530; 97535

== ENCOUNTER 2024-02-29 10:03 | Outpatient (RCR) | payer BC, SELFPAY | END 2024-02-29 23:59 | disposition home or self-care (01) | LOC: RPT 10:03 | PROVIDERS: ATTENDING PHYSICIAN Physical Medicine & Rehabilitation; FAMILY PHYSICIAN Internal Medicine | DX: G72.9 Myopathy, unspecified (principal); R26.89 Other abnormalities of gait and mobility; Z73.6 Limitation of activities due to disability; G62.9 Polyneuropathy, unspecified; R54 Age-related physical debility; R26.2 Difficulty in walking, not elsewhere classified; M62.81 Muscle weakness (generalized) | CPT/HCPCS: 97110; 97112; 97163; 97167; 97530; 97535; 97537 ==

== ENCOUNTER 2024-03-31 10:00 | Outpatient (RCR) | payer BC, SELFPAY | END 2024-03-31 23:59 | disposition home or self-care (01) | LOC: RPT 10:00 | PROVIDERS: ATTENDING PHYSICIAN Physical Medicine & Rehabilitation; FAMILY PHYSICIAN Internal Medicine | DX: G72.9 Myopathy, unspecified (principal); R26.89 Other abnormalities of gait and mobility; G62.9 Polyneuropathy, unspecified; M62.81 Muscle weakness (generalized); Z73.6 Limitation of activities due to disability | CPT/HCPCS: 97110; 97112; 97116; 97530; 97535 ==

== ENCOUNTER 2024-04-28 10:55 | Outpatient (RCR) | payer BC, SELFPAY | END 2024-04-28 23:59 | disposition home or self-care (01) | LOC: RPT 10:55 | PROVIDERS: ATTENDING PHYSICIAN Physical Medicine & Rehabilitation; FAMILY PHYSICIAN Internal Medicine | DX: G72.9 Myopathy, unspecified (principal); G62.9 Polyneuropathy, unspecified; R26.89 Other abnormalities of gait and mobility; R54 Age-related physical debility; M62.81 Muscle weakness (generalized); Z73.6 Limitation of activities due to disability | CPT/HCPCS: 97110; 97112; 97530; 97535 ==

== ENCOUNTER → 2024-05-02 10:29 | Outpatient (REF) | payer BC, SELFPAY ==
[2024-05-02 11:27] LABS: % Basophils 1.2 % (0-2); % Eosinophils 10.6 % (0-6); % Immature Granulocytes 0.2 % (0-0.5); % Lymphocytes 19.1 % (20.5-51.1); % Monocytes 9.1 % (1.7-9.3); % Neutrophils 59.8 % (42.2-75.2); Absolute Basophils 0.1 10^3/uL (0-0.2); Absolute Eosinophils 0.9 10^3/uL (0-0.7); Absolute Lymphocytes 1.6 10^3/uL (1.2-3.4); Absolute Monocytes 0.8 10^3/uL (0.1-0.6); Hematocrit 38.5 % (37.0-47.0); Hemoglobin 12.1 g/dL (12.0-16.0); Mean Corp Hgb Conc. 31.4 g/dL (33.0-37.0); Mean Corpuscular Hgb 30.9 pg (27.0-31.0); Mean Corpuscular Volume 98.2 fL (81.0-99.0); Mean Platelet Volume 11.2 fL (7.4-10.4); Nucleated Red Blood Cells % 0 %; Platelet Count 289 10^3/uL (130-400); Red Blood Cell Count 3.92 10^6/uL (4.20-5.40); Red Cell Dist. Width 11.9 % (11.5-14.5); White Blood Cell Count 8.3 10^3/uL (4.8-10.8)
[2024-05-02 12:07] LABS: ALT (SGPT) 15 U/L (0-35); AST (SGOT) 23 U/L (14-36); Albumin 4.2 g/dl (3.5-5.0); Alkaline Phosphatase 92 U/L (38-126); Blood Urea Nitrogen 22 mg/dl (7-17); Calcium 11.3 mg/dl (8.4-10.2); Carbon Dioxide 32 mmol/L (22-30); Chloride 101 mmol/L (98-107); Glucose 107 mg/dl (70-99); HDL Cholesterol 67 mg/dl; LDL Cholesterol, Calculated 116 mg/dl; Potassium 4.8 mmol/L (3.5-5.1); Sodium 141 mmol/L (135-145); Total Bilirubin 0.6 mg/dl (0.2-1.3); Total Cholesterol 213 mg/dl (50-199); Total Protein 7.3 g/dl (6.3-8.2); Triglyceride 154 mg/dl (10-149); Very Low Density Lipoprotein 30 mg/dl (0-30); eGFR 49.48
== END ==
LOC: REG 10:29
PROVIDERS: ATTENDING PHYSICIAN Internal Medicine
DX: E05.00 Thyrotoxicosis with diffuse goiter without thyrotoxic crisis or storm (principal); E87.1 Hypo-osmolality and hyponatremia; I10 Essential (primary) hypertension; E78.01 Familial hypercholesterolemia; Z00.01 Encounter for general adult medical examination with abnormal findings
CPT/HCPCS: 36415; 80053; 80061; 85025

== ENCOUNTER 2024-05-30 08:55 | Outpatient (RCR) | payer BC, SELFPAY | END 2024-05-30 23:59 | disposition home or self-care (01) | LOC: RPT 08:55 | PROVIDERS: ATTENDING PHYSICIAN Physical Medicine & Rehabilitation; FAMILY PHYSICIAN Internal Medicine | DX: G72.9 Myopathy, unspecified (principal); G62.9 Polyneuropathy, unspecified; R26.89 Other abnormalities of gait and mobility; R54 Age-related physical debility; Z73.6 Limitation of activities due to disability; M62.81 Muscle weakness (generalized); R26.2 Difficulty in walking, not elsewhere classified | CPT/HCPCS: 97110; 97112; 97530 ==

== ENCOUNTER 2024-06-27 08:59 | Outpatient (RCR) | payer BC, SELFPAY | END 2024-06-27 23:59 | disposition home or self-care (01) | LOC: RPT 08:59 | PROVIDERS: ATTENDING PHYSICIAN Physical Medicine & Rehabilitation; FAMILY PHYSICIAN Internal Medicine | DX: G72.9 Myopathy, unspecified (principal); G62.9 Polyneuropathy, unspecified; R26.89 Other abnormalities of gait and mobility; R54 Age-related physical debility; Z73.6 Limitation of activities due to disability; M62.81 Muscle weakness (generalized); R26.2 Difficulty in walking, not elsewhere classified | CPT/HCPCS: 97110; 97112; 97530 ==

== ENCOUNTER 2024-07-13 08:59 | Outpatient (RCR) | payer BC, SELFPAY | END 2024-07-13 23:59 | disposition home or self-care (01) | LOC: RPT 08:59 | PROVIDERS: ATTENDING PHYSICIAN Physical Medicine & Rehabilitation; FAMILY PHYSICIAN Internal Medicine | DX: G72.9 Myopathy, unspecified (principal); G62.9 Polyneuropathy, unspecified; R26.89 Other abnormalities of gait and mobility; R54 Age-related physical debility; Z73.6 Limitation of activities due to disability; M62.81 Muscle weakness (generalized); R26.2 Difficulty in walking, not elsewhere classified | CPT/HCPCS: 97110; 97112 ==

== ENCOUNTER → 2024-07-22 12:24 | Outpatient (REF) | payer BC, SELFPAY ==
[2024-07-22 13:38] LABS: Calcium 10.3 mg/dl (8.4-10.2)
== END ==
LOC: REG 12:24
PROVIDERS: ATTENDING PHYSICIAN Internal Medicine
DX: E83.52 Hypercalcemia (principal)
CPT/HCPCS: 36415; 82310

== ENCOUNTER → 2024-09-12 10:28 | Outpatient (REF) | payer BC, SELFPAY ==
[2024-09-12 11:45] LABS: Urine Character Slightly Cloudy (Clear)
[2024-09-12 12:02] LABS: Urine White Cell >100 /HPF (0-5)
== END ==
LOC: RAD 10:28
PROVIDERS: ATTENDING PHYSICIAN Internal Medicine
DX: G89.29 Other chronic pain (principal); M25.561 Pain in right knee; M25.562 Pain in left knee; N39.0 Urinary tract infection, site not specified
CPT/HCPCS: 73564; 81003; 81015; 87077; 87086; 87186

== ENCOUNTER → 2024-09-15 13:10 | Outpatient (REF) | payer BC, SELFPAY | LOC: PAVMRI 13:10 | PROVIDERS: ATTENDING PHYSICIAN Psychiatry & Neurology Neurology; FAMILY PHYSICIAN Internal Medicine | DX: R90.89 Other abnormal findings on diagnostic imaging of central nervous system (principal) | CPT/HCPCS: 70553; A9575 ==

== ENCOUNTER → 2024-11-10 13:19 | Outpatient (REF) | payer BC, SELFPAY ==
[2024-11-10 15:29] LABS: Urine Red Blood Cell 0-2 /HPF (0-2); Urine White Cell 60-70 /HPF (0-5)
== END ==
LOC: REG 13:19
PROVIDERS: ATTENDING PHYSICIAN Nurse Practitioner Acute Care
DX: R39.15 Urgency of urination (principal)
CPT/HCPCS: 81015; 87077; 87086; 87186

== ENCOUNTER → 2025-01-05 12:27 | Outpatient (REF) | payer BC, SELFPAY | LOC: WDC 12:27 | PROVIDERS: ATTENDING PHYSICIAN Internal Medicine | DX: Z12.31 Encounter for screening mammogram for malignant neoplasm of breast (principal) | CPT/HCPCS: 77063; 77067 ==